=== PATIENT | male | born 1950 | race American Indian/Alaskan Native ===

== ENCOUNTER 2016-12-31 12:49 | Inpatient (IN) | payer MEDICAID, MEDICARE ==
[2016-12-31] MEDS ORDERED: NACL 0.9% 500 ML 500 ML IV ONE (13:54)
[2016-12-31 14:45] LABS: Anion Gap 25 mmol/L; BUN/Creatinine Ratio 30.76; Blood Urea Nitrogen 40 mg/dL (9-20); Calcium 8.4 mg/dL (8.4-10.2); Carbon Dioxide 20 mmol/L (22-30); Glucose 88 mg/dL (75-100); Potassium 4.5 mmol/L (3.6-5.0); Sodium 137 mmol/L (137-145)
--- NOTE | 2016-12-31 14:45 | Emergency Department Report ---
ED Male HPI - General Chief complaint: Urogenital-Male Stated complaint: POSS KIDNEY STONES Time Seen by Provider: 12/31/16 13:38 Source: EMS, old records reviewed Mode of arrival: Stretcher Limitations: Physical Limitation, Other - History of Present Illness MD Complaint: dysuria -: Gradual Radiation: none Improves with: none Worsens with: none urinary retention. denies: discharge, swelling, mass - Related Data Sexually active: No Home Medications Medication Instructions Recorded Confirmed Last Taken Aspirin [Aspirin TAB] 325 mg PO QDAY 03/19/16 12/31/16 04/03/16 08:00 Atenolol [Tenormin] 50 mg PO DAILY 03/19/16 12/31/16 04/03/16 08:00 Magan Turk [Antonio TURK] 500 mg PO DAILY 03/19/16 12/31/16 04/03/16 08:00 Docusate Sodium [Move It Along] 100 mg PO DAILY 03/19/16 12/31/16 04/03/16 08:00 Donepezil [Aricept] 10 mg PO DAILY 03/19/16 12/31/16 04/03/16 08:00 Hydrochlorothiazide [Hctz] 12.5 mg PO QDAY 03/19/16 12/31/16 04/03/16 08:00 Multivitamin Tab W-MINERAL 1 each PO QD 03/19/16 12/31/16 04/03/16 08:00 [Multiple Vitamin/Mineral (Theragran M)] Potassium Chloride [K-Tab ER] 10 meq PO DAILY 03/19/16 12/31/16 04/03/16 08:00 Nitro Dur 0.2 mg TRANSDERMA DAILY 04/03/16 12/31/16 04/03/16 08:00 cloNIDine 0.2 mg PO TID 04/03/16 12/31/16 04/03/16 08:00 metFORMIN 1,000 mg PO BID 04/03/16 12/31/16 04/03/16 08:00 Magan Turk [Antonio TURK] 750 mg PO QHS 12/31/16 12/31/16 Unknown Nitrofurantoin [place]/M-Cryst 100 mg PO DAILY 12/31/16 12/31/16 Unknown [Macrobid CAP] Sertraline [Zoloft] 100 mg PO QDAY 12/31/16 12/31/16 Unknown Tamsulosin [Flomax] 0.4 mg PO QDAY 12/31/16 12/31/16 Unknown guaiFENesin [Robitussin] 200 mg PO Q6HR 12/31/16 12/31/16 Unknown Allergies Allergy/AdvReac Type Severity Reaction Status Date / Time No Known Allergies Allergy Unverified 03/19/16 21:13 ED Review of Systems ROS: Stated complaint: POSS KIDNEY STONES Other details as noted in HPI Comment: Unobtainable due to pts medical conditions Constitutional: denies: chills, fever Eyes: denies: eye pain, eye discharge, vision change ENT: denies: ear pain, throat pain Respiratory: denies: cough, shortness of breath, wheezing Cardiovascular: denies: chest pain, palpitations Endocrine: no symptoms reported Gastrointestinal: denies: abdominal pain, nausea, diarrhea Genitourinary: denies: urgency, dysuria Musculoskeletal: denies: back pain, joint swelling, arthralgia Skin: denies: rash, lesions Neurological: denies: headache, weakness, paresthesias Psychiatric: denies: anxiety, depression Hematological/Lymphatic: denies: easy bleeding, easy bruising ED Past Medical Hx - Past Medical History Hx Hypertension: Yes Hx Diabetes: Yes Additional medical history: CEREBAL PALSY, PARAPLEGIA, APHAKIA, LOW VISION, DYSPHAGIA, CONSTIPATION, - Social History Smoking Status: Never Smoker - Medications Home Medications: Home Medications Medication Instructions Recorded Confirmed Last Taken Type Aspirin [Aspirin TAB] 325 mg PO QDAY 03/19/16 12/31/16 04/03/16 08:00 History Atenolol [Tenormin] 50 mg PO DAILY 03/19/16 12/31/16 04/03/16 08:[address] [DepaKOTE DR] 500 mg PO DAILY 03/19/16 12/31/16 04/03/16 08:00 History Docusate Sodium [Move It Along] 100 mg PO DAILY 03/19/16 12/31/16 04/03/16 08: 00 History Donepezil [Aricept] 10 mg PO DAILY 03/19/16 12/31/16 04/03/16 08:00 History Hydrochlorothiazide [Hctz] 12.5 mg PO QDAY 05/12/31/16 04/03/16 08:00 History Multivitamin Tab W-MINERAL 1 each PO QD 03/19/16 12/31/16 04/03/16 08:00 History [Multiple Vitamin/Mineral (Theragran M)] Potassium Chloride [K-Tab ER] 10 meq PO DAILY 03/19/16 12/31/16 04/03/16 08:00 History Nitro Dur 0.2 mg TRANSDERMA DAILY 04/03/16 12/31/16 04/03/16 08:00 History cloNIDine 0.2 mg PO TID 04/03/16 12/31/16 04/03/16 08:00 History metFORMIN 1,000 mg PO BID 04/03/16 12/31/16 04/03/16 08:[address] [DepGlenn DR] 750 mg PO QHS 12/31/16 12/31/16 Unknown History Nitrofurantoin [place]/M-Cryst 100 mg PO DAILY 12/31/16 12/31/16 Unknown History [Macrobid CAP] Sertraline [Zoloft] 100 mg PO QDAY 12/31/16 12/31/16 Unknown History Tamsulosin [Flomax] 0.4 mg PO QDAY 12/31/16 12/31/16 Unknown History guaiFENesin [Robitussin] 200 mg PO Q6HR 12/31/16 12/31/16 Unknown History ED Physical Exam - General Limitations: Physical Limitation, Other General appearance: alert, in no apparent distress - Head Head exam: Present: atraumatic, normocephalic - ENT ENT exam: Present: mucous membranes moist - Neck Neck exam: Present: normal inspection - Respiratory Respiratory exam: Present: normal lung sounds bilaterally. Absent: respiratory distress - Cardiovascular Cardiovascular Exam: Present: regular rate, normal rhythm. Absent: systolic murmur, diastolic murmur, rubs, gallop - GI/Abdominal GI/Abdominal exam: Present: soft, normal bowel sounds - Rectal Rectal exam: Present: deferred - Extremities Exam Extremities exam: Present: normal inspection - Back Exam Back exam: Present: normal inspection - Skin Skin exam: Present: warm, dry, intact, normal color. Absent: rash ED Course Vital Signs 12/31/16 12/31/16 12/31/16 13:16 13:22 15:00 Temperature 97.4 F L Pulse Rate 74 58 L Respiratory 20 16 12 Rate Blood Pressure 112/58 Blood Pressure 87/65 [Left] O2 Sat by Pulse 99 99 97 Oximetry ED Medical Decision Making - Lab Data Result diagrams: 12/31/16 14:14 12/31/16 14:14 - Medical Decision Making will admit after discussion case with Urologist and IM, he has been stable , requesting fluids otherwise doing well. labs neg , but CT abd /pelvis with Right ureter obstrcution at R UVJ, probably will need a stent Critical care attestation.: If time is entered above; I have spent that time in minutes in the direct care of this critically ill patient, excluding procedure time. ED Disposition Clinical Impression: Ureter colic, UTI (urinary tract infection) Disposition: OP ADMITTED IP TO THIS HOSP Is pt being admited?: Yes Does the pt Need Aspirin: No Condition: Good Referrals: PRIMARY CARE, [Primary Care Provider] - 3-5 Days Time of Disposition: 15:52
[2016-12-31 14:49] LABS: Basophils % (Auto) 0.6 % (0.0-1.8); Eosinophils % (Auto) 1.2 % (0.0-4.3); Hematocrit 31.8 % (35.5-45.6); Hemoglobin 10.4 gm/dl (11.8-15.2); Mean Corpuscular HGB Conc 33 % (32-34); Mean Corpuscular Hemoglobin 30 pg (28-32); Mean Corpuscular Volume 91 fl (84-94); Platelet Count 308 K/mm3 (140-440); Red Blood Count 3.49 M/mm3 (3.65-5.03); White Blood Count 5.5 K/mm3 (4.5-11.0)
--- NOTE | 2016-12-31 15:10 | Cat Scan Report ---
CT scan of abdomen and pelvis without IV contrast: History: Kidney stone, hydronephrosis. Findings: Bibasilar infiltrate/atelectasis. No pleural pericardial effusion. Circumscribed hypodensity measuring 1.6 cm in diameter at the right lobe of the liver probably a cyst. Sonographic correlation is advised. Normal gallbladder pancreas and spleen. Normal adrenals. Cyst identified in the right kidney measures 7.3 x 5.3 cm. There is 1.9 x 1.5 cm calculus at right kidney. Smaller calculus measuring 3 mm in diameter noted in the adjacent region. There is faint 3 mm calculus and triangular 8mm calculus and 8.5 mm calculus identified in the left kidney. Incidental catheter in thick walled bladder with air fluid level within the bladder. There is calculus identified at the right UV junction measuring 1.5 x 0.6 cm in diameter with hydronephrosis of right collecting system. Fecal impaction in rectosigmoid. No bowel obstruction. Suspected hydrocele left scrotum. Impression: Nonobstructing calculi right and left kidney. Obstructing calculus at the right UV junction with hydronephrosis. Probable cyst right lobe of the liver. Large left hydrocele. Additional findings as detailed above.
--- NOTE | 2016-12-31 16:36 | Admit Criteria Form ---
Admission Criteria Documentation: RENAL COLIC AND KIDNEY STONES Clinical Indications for Admission to Inpatient Care ( Place 'X' for any and all applicable criteria): Admission is indicated for ANY ONE of the following (1)(2)(3)(4): [X]I. Inpatient admission required rather than observation care (Also use Renal Colic and Kidney Stones: Observation Care Criteria as appropriate) because of ANY ONE of the following: [ ]a) Severe pain requiring acute inpatient management []b) Urinary tract infection identified [ ]c) Vomiting that is severe or persistent [ ]d) IV fluid required rather than oral rehydration to replace significant ongoing (eg, for greater than 24 hours) losses (greater than 200 mL/hr or 3 L/m2 per day) [ ]e) Percutaneous or open drainage (eg, abscess, biliary tract) procedures [X]f) Other condition, treatment or monitoring requiring inpatient admission [ ]II. Impending acute renal failure [ ]III. Bilateral obstruction [ ]IV. Single kidney with obstruction [ ]V. Transplanted kidney with obstruction [ ]. Possible open surgical procedure needed (eg, pyonephrosis, stone removal not amendable to other means) [ ]VII. Hemodynamic instability Extended stay beyond goal length of stay may be needed for(2)(3)(31): [ ]a) Failed initial stone removal (32) [ ]b) Pyonephrosis [ ]c) Obstructive uropathy with urinary tract infection [ ]d) Procedure complications [ ]e) Comorbidities (22) The original [email or web address] content created by [employer] has been revised. The portions of the content which have been revised are identified through the use of italic text or in bold, and [facility] has neither reviewed nor approved the modified material. All other unmodified content is copyright [email or web address]. Please see references footnoted in the original [email or web address] edition 2016 Admission Criteria Met: Yes
[2016-12-31] MEDS ORDERED: TYLENOL PO PRN (23:27)
[2016-12-31] MEDS ORDERED: ZOFRAN IV PRN ×2 (23:27→23:51)
[2016-12-31] MEDS ORDERED: DILAUDID IV PRN ×2 (23:27→23:51)
[2016-12-31] MEDS ORDERED: MILK OF MAGNESIA PO PRN (23:27)
[2016-12-31] MEDS ORDERED: DULCOLAX PR PRN (23:27)
--- NOTE | 2016-12-31 23:34 | Event Note ---
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
[2016-12-31] MEDS ORDERED: D5NS 1,000 ML IV SCH (23:45)
[2017-01-01] MEDS: ROBITUSSIN PO SCH ×5 (00:26→18:45)
--- NOTE | 2017-01-01 06:37 | History and Physical Report ---
CHIEF COMPLAINT: 1. Difficulty urination. 2. Right flank pain. HISTORY OF PRESENT ILLNESS: A 66-year-old male with diabetes, hypertension, and seizure disorder who comes in for right flank pain and difficulty urinating. No fever, no chills. Pain is about 8 on a scale of 1-10. The patient has urgency, dysuria and right flank pain. Able to pass urine. The patient has cerebral palsy and paraplegia. PAST MEDICAL HISTORY: As mentioned, hypertension, diabetes, cerebral palsy, paraplegia, dysphagia, constipation. FAMILY HISTORY: No hypertension, no diabetes. CURRENT MEDICATIONS: Aspirin 325 mg p.o. daily, atenolol 50 mg p.o. daily, Depakote 500 mg in the morning and 750 mg in the evening. Donepezil 10 mg p.o. daily, potassium chloride 10 mEq daily, clonidine 0.2 p.o. t.i.d., metformin 1000 mg p.o. b.i.d., nitrofurantoin 100 mg daily, Zoloft 100 mg daily, Flomax 0.4 p.o. daily. REVIEW OF SYSTEMS: Significant for right flank pain, dysuria, urgency. No fever, no chills. Otherwise, review of systems is essentially negative. PHYSICAL EXAMINATION: GENERAL: Elderly male, lying in bed. VITAL SIGNS: Blood pressure is 87/55, which has improved to 100/61, temperature is 98, pulse is 58, respirations 12, sats 97%. HEENT: Unremarkable. Pupils equal and reactive. NECK: Supple, no lymphadenopathy, no thyromegaly. LUNGS: Clear to auscultation and percussion. Good air entry. CARDIOVASCULAR: S1, S2 heard. No gallop, no murmur, no rub. Apical impulse in left fifth intercostal space and midclavicular line. ABDOMEN: Soft and benign. No hepatosplenomegaly. No guarding, no rigidity. EXTREMITIES: The patient has paraplegia. Brody catheter in place. SKIN: Normal. LABORATORY DATA: White count is 5500, H and H is 10.4 and 31.8, platelet count is 308,000. Sodium is 137, potassium is 4.5, chloride is 97, bicarbonate is 20, BUN and creatinine is 40 and 1.3, glucose is 88, calcium is 8.4. CT of the abdomen and pelvis shows nonobstructing calculi right and left kidney, obstructing calculus in the right UV junction with hydronephrosis, probable cyst in right lobe of the liver. Large left hydrocele. ASSESSMENT AND PLAN: Right hydronephrosis secondary to ureteric stone at UV junction. The patient needs stent and removal of the UV junction stone. Dr. Adams, Urology consulted. IV fluids in the meantime. For stent in the morning.1. 2. Hypertension. Continue clonidine 0.2 t.i.d., atenolol 50 mg daily. 3. Type 2 diabetes mellitus. The patient is on metformin. We will hold the metformin for the time being. Accu-Cheks achs and sliding scale coverage. 4. Seizure disorder. Continue the Depakote 500 mg in the morning and 750 mg in the evening. 5. Dementia. Continue donepezil 10 mg daily. For benign prostatic hyperplasia, continue tamsulosin 6. 0.4 mg p.o. daily. 7. Deep venous thrombosis prophylaxis, Lovenox 40 mg subcutaneous daily. JOB# [id number] SAMI/RIGO HENDERSON
[2017-01-01 06:43] LABS: Basophils % (Auto) 0.5 % (0.0-1.8); Eosinophils % (Auto) 0.9 % (0.0-4.3); Hematocrit 31.9 % (35.5-45.6); Hemoglobin 10.5 gm/dl (11.8-15.2); Mean Corpuscular HGB Conc 33 % (32-34); Mean Corpuscular Hemoglobin 30 pg (28-32); Mean Corpuscular Volume 91 fl (84-94); Platelet Count 302 K/mm3 (140-440); Red Blood Count 3.53 M/mm3 (3.65-5.03); Red Cell Distribution Width 15.1 % (13.2-15.2); White Blood Count 5.3 K/mm3 (4.5-11.0)
[2017-01-01 06:57] LABS: Alanine Aminotransferase 18 units/L (7-56); Albumin 2.6 g/dL (3.9-5); Albumin/Globulin Ratio 0.5 %; Alkaline Phosphatase 60 units/L (35-129); Anion Gap 18 mmol/L; Bilirubin,Total 0.2 mg/dL (0.1-1.2); Blood Urea Nitrogen 34 mg/dL (9-20); Calcium 8.5 mg/dL (8.4-10.2); Carbon Dioxide 24 mmol/L (22-30); Chloride 100.6 mmol/L (98-107); Glucose 91 mg/dL (75-100); Potassium 3.9 mmol/L (3.6-5.0); Sodium 139 mmol/L (137-145); Total Protein 7.4 g/dL (6.3-8.2)
[2017-01-01] MEDS: NOVOLOG SUB-Q SCH ×4 (07:30→23:14)
[2017-01-01] MEDS ORDERED: NON-FORMULARY (Clonidine 0.2 MG) PO SCH (08:00)
[2017-01-01] MEDS: FLOMAX PO SCH (09:11)
[2017-01-01] MEDS: ASPIRIN PO SCH (09:11)
[2017-01-01] MEDS: COLACE PO SCH (09:11)
[2017-01-01] MEDS: ZOLOFT PO SCH (09:12)
[2017-01-01] MEDS: K-DUR PO SCH (09:12)
[2017-01-01] MEDS: ARICEPT PO SCH (09:12)
[2017-01-01] MEDS: TENORMIN PO SCH (09:13)
[2017-01-01] MEDS: HCTZ PO SCH (09:13)
[2017-01-01] MEDS: CATAPRES PO SCH ×3 (09:14→23:13)
[2017-01-01] MEDS ORDERED: LOVENOX SUB-Q SCH ×2 (10:00)
[2017-01-01] MEDS ORDERED: NON-FORMULARY (Potassium Chloride [K-Tab Er] 10 MEQ) PO SCH (10:00)
[2017-01-01] MEDS ORDERED: DOCUSATE SODIUM 100 MG PO SCH (10:00)
[2017-01-01] MEDS: ROCEPHIN/NS 2 GM/100 ML 2 GM/100 ML BAG IV SCH (11:08)
--- NOTE | 2017-01-01 13:57 | Progress Note ---
Assessment and Plan Assessment and plan: 66-year-old male with history of hypertension, diabetes, seizure disorder, cerebral palsy, paraplegia 1. Right hydronephrosis secondary to ureteric stone at the UV junction - Urology consulted - Possible stent placement 2. Hypertension - Controlled - Continue current medications 3. Diabetes mellitus type 2 - Insulin regimen 4.Seizure disorder - Continue her medications 5.Dementia - Continue donepezil DVT prophylaxis - Lovenox Disposition - Continue inpatient care History Interval history: Patient denied abdominal pain, fever. Hospitalist Physical - Physical exam Narrative exam: Not in cardiopulmonary distress. The patient appeared well nourished and normally developed. Vital signs as documented. Head exam is unremarkable. No scleral icterus . Neck is without jugular venous distension, thyromegaly, or carotid bruits. Lungs are clear to auscultation. Cardiac exam reveals regular rate and Rhythm. First and second heart sounds normal. No murmurs, rubs or gallops. Abdominal exam reveals nontender, nondistended. Extremities are nonedematous and both femoral and pedal pulses are normal. CELERY TIER: Alert . - Constitutional Vitals: Temp Pulse Resp BP Pulse Ox 98.4 F 54 L 18 121/65 100 01/01/17 09:00 01/01/17 09:14 01/01/17 09:00 01/01/17 09:14 01/01/17 09:00 Results - Labs CBC & Chem 7: 01/01/17 06:20 01/01/17 06:20 Labs: Laboratory Last Values WBC 5.3 K/mm3 (4.5-11.0) 01/01/17 06:20 RBC 3.53 M/mm3 (3.65-5.03) L 01/01/17 06:20 Hgb 10.5 gm/dl (11.8-15.2) L 01/01/17 06:20 Hct 31.9 % (35.5-45.6) L 01/01/17 06:20 MCV 91 fl (84-94) 01/01/17 06:20 MCH 30 pg (28-32) 01/01/17 06:20 MCHC 33 % (32-34) 01/01/17 06:20 RDW 15.1 % (13.2-15.2) 01/01/17 06:20 Plt Count 302 K/mm3 (140-440) 01/01/17 06:20 Lymph % (Auto) 11.5 % (13.4-35.0) L 01/01/17 06:20 [place] % (Auto) 7.9 % (0.0-7.3) H 01/01/17 06:20 Eos % (Auto) 0.9 % (0.0-4.3) 01/01/17 06:20 Baso % (Auto) 0.5 % (0.0-1.8) 01/01/17 06:20 Lymph # 0.6 K/mm3 (1.2-5.4) L 01/01/17 06:20 [place] # 0.4 K/mm3 (0.0-0.8) 01/01/17 06:20 Eos # 0.0 K/mm3 (0.0-0.4) 01/01/17 06:20 Baso # 0.0 K/mm3 (0.0-0.1) 01/01/17 06:20 Seg Neutrophils % 79.2 % (40.0-70.0) H 01/01/17 06:20 Seg Neutrophils # 4.2 K/mm3 (1.8-7.7) 01/01/17 06:20 Sodium 139 mmol/L (137-145) 01/01/17 06:20 Potassium 3.9 mmol/L (3.6-5.0) 01/01/17 06:20 Chloride 100.6 mmol/L (98-107) 01/01/17 06:20 Carbon Dioxide 24 mmol/L (22-30) 01/01/17 06:20 Anion Gap 18 mmol/L 01/01/17 06:20 BUN 34 mg/dL (9-20) H 01/01/17 06:20 Creatinine 1.0 mg/dL (0.8-1.5) 01/01/17 06:20 Estimated GFR > 60 ml/min 01/01/17 06:20 BUN/Creatinine Ratio 34.00 % 01/01/17 06:20 Glucose 91 mg/dL (75-100) 01/01/17 06:20 POC Glucose 147 (70-105) H 01/01/17 12:03 Calcium 8.5 mg/dL (8.4-10.2) 01/01/17 06:20 Total Bilirubin 0.2 mg/dL (0.1-1.2) 01/01/17 06:20 AST 15 units/L (5-40) 01/01/17 06:20 ALT 18 units/L (7-56) 01/01/17 06:20 Alkaline Phosphatase 60 units/L (35-129) 01/01/17 06:20 Total Protein 7.4 g/dL (6.3-8.2) 01/01/17 06:20 Albumin 2.6 g/dL (3.9-5) L 01/01/17 06:20 Albumin/Globulin Ratio 0.5 % 01/01/17 06:20
[2017-01-02] MEDS: ROBITUSSIN PO SCH ×4 (00:59→18:00)
[2017-01-02 05:45] LABS: BUN/Creatinine Ratio 27.14; Blood Urea Nitrogen 19 mg/dL (9-20); Calcium 7.9 mg/dL (8.4-10.2); Carbon Dioxide 23 mmol/L (22-30); Glucose 120 mg/dL (75-100)
[2017-01-02 05:46] LABS: Anion Gap 16 mmol/L; Chloride 104.8 mmol/L (98-107); Potassium 3.6 mmol/L (3.6-5.0); Sodium 140 mmol/L (137-145)
[2017-01-02] MEDS ORDERED: PEPCID PO NR (06:00)
[2017-01-02] MEDS: NACL 0.9% 1000 ML 1,000 ML IV SCH (06:58)
[2017-01-02] MEDS: CATAPRES PO SCH ×3 (08:00→20:00)
[2017-01-02] MEDS: NOVOLOG SUB-Q SCH ×2 (08:00→15:00)
--- NOTE | 2017-01-02 08:10 | Query- Nutrition ---
Deaelizabeth Garg Date:____01/02/17 Dog Daycare Provider/CDS:__Gonzales Vega Phone#:____[phone] Exercise your independent professional judgment when responding to query. Questions asked do not imply a particular answer is desired or expected. We greatly appreciate your clarification on this issue. Clinical Documentation States: 66 year old male was admitted on 12/31/16. The Patient was diagnosed with a right hydronephrosis secondary to ureteric stone at the UV junction. Clinical Findings Show: Albumin : 2.6 Lymphocytes: 0.6 Please select the most appropriate option 3 [] Mild Malnutrition [] Mild - Moderate Malnutrition [x] Moderate - Severe Malnutrition [] Severe Malnutrition Serum Albumin 2.8 to 3.4 g/dl or Pre-albumin 5 to 17 mg/dl1,2 Inadequate nutritional intake1,2,3,4 NPO > 5 days Weight loss: 5% in 1 month or 7.5% in 3 months or 10% in 6 months1, 3,4 BMI 16 to 18.4 or Weight <90% of ideal body weight1,2,3,4 Serum Albumin < 2.8 g/ dl1,2 Lymphocytes < 1500/ L2 Inadequate nutritional intake3, high stress e.g. major trauma, sepsis,pancreatitis, mann etc. Decubitus ulcers1,2, , skin breakdown2, easy hair pluckability2 Weight <80% standard for height2 Triceps skin fold <3 mm2 Mid-arm muscle circumference <15 cm2 Creatinine-height index <60% standard2 [ ] Cachexia [ x] Emaciated w/Malnutrition [ ] Other: [ ] Unable to determine [ ] Comment/Explanation: Present on Admission: [ ] Yes (Y) [ x] Clinically undeterminable (W) [ ] No (N) Please also document response in your Progress Notes and/or Discharge Summary and indicate if the condition was present on admission. MTDD
[2017-01-02] MEDS: ROCEPHIN/NS 2 GM/100 ML 2 GM/100 ML BAG IV SCH (09:40)
[2017-01-02] MEDS: TENORMIN PO SCH (10:00)
[2017-01-02] MEDS: ZOLOFT PO SCH (10:00)
[2017-01-02] MEDS: FLOMAX PO SCH (10:00)
[2017-01-02] MEDS: ARICEPT PO SCH (10:00)
[2017-01-02] MEDS: COLACE PO SCH (10:00)
[2017-01-02] MEDS: ASPIRIN PO SCH (10:00)
[2017-01-02] MEDS: HCTZ PO SCH (10:00)
[2017-01-02] MEDS: K-DUR PO SCH (10:00)
--- NOTE | 2017-01-02 11:02 | Event Note ---
Date: 01/02/17 PAULINA RENAL STONES RIGHT HYDRO / URET STONE ?LT URET STONE - plan tonight cysto, rpg, stents and possibl ureteroscopy, laser, stone extraction - family to arrive late pm, will need to discuss and consent
--- NOTE | 2017-01-02 11:10 | Anesthesia Consultation ---
Anesthesia Consult and Med Hx Date of service: 01/02/17 - Airway Anesthetic Teeth Evaluation: Poor, Chipped (some missing teeth, patient uncooperative to fully assess) ROM Head & Neck: Inadequate Mental/Hyoid Distance: Adequate Mallampati Class: Class III Intubation Access Assessment: Possibly Difficult - Pulmonary Exam CTA: Yes - Cardiac Exam Cardiac Exam: RRR - Pre-Operative Health Status ASA Pre-Surgery Classification: ASA3 Proposed Anesthetic Plan: General - Pulmonary Hx Smoking: No - Cardiovascular System Hx Hypertension: Yes Hx Heart Attack/AMI: Yes - Central Nervous System Hx Neuromuscular Disorder: Yes (cerebral palsy) Hx Seizures: No CVA: Yes Hx Psychiatric Problems: Yes (anxiety, combative, uncooperative if agitated/ nervous, poss dementia) - Gastrointestinal Hx Ulcer: No Hx Gastroesophageal Reflux Disease: No - Endocrine Hx Non-Insulin Dependent Diabetes: Yes - Hematic Hx Anemia: No Hx Sickle Cell Disease: No - Other Systems Hx Alcohol Use: No Hx Substance Use: No Hx Cancer: No Hx Obesity: No - Additional Comments Anesthesia Medical History Comments: Patient states he does not want to give consent for anesthesia services. He wishes for his parking patroller/POA to sign his documents at this time. Patient has limited movement, paraplegia in both legs. Arms are stiff with limited motion.
--- NOTE | 2017-01-02 12:14 | Progress Note ---
Assessment and Plan Assessment and plan: 66-year-old male with history of hypertension, diabetes, seizure disorder, cerebral palsy, paraplegia 1. Right hydronephrosis secondary to ureteric stone at the UV junction - Urology consulted and plan to do cystoscopy in the afternoon after getting consent from family member - Possible stent placement 2. Hypertension - Controlled - Continue current medications 3. Diabetes mellitus type 2 - Insulin regimen 4.Seizure disorder - Continue her medications 5.Dementia - Continue donepezil DVT prophylaxis - Lovenox Disposition - Continue inpatient care History Interval history: Patient denied abdominal pain, fever. patient was sleepy. Hospitalist Physical - Physical exam Narrative exam: Not in cardiopulmonary distress. The patient appeared well nourished and normally developed. Vital signs as documented. Head exam is unremarkable. No scleral icterus . Neck is without jugular venous distension, thyromegaly, or carotid bruits. Lungs are clear to auscultation. Cardiac exam reveals regular rate and Rhythm. First and second heart sounds normal. No murmurs, rubs or gallops. Abdominal exam reveals nontender, nondistended. Extremities are nonedematous and both femoral and pedal pulses are normal. TRAIN CONTROL ELECTRONIC TECHNICIAN: Alert . - Constitutional Vitals: Temp Pulse Resp BP Pulse Ox 97.5 F L 62 18 120/65 95 01/01/17 16:00 01/01/17 23:13 01/01/17 16:00 01/01/17 23:13 01/01/17 16:00 Results - Labs CBC & Chem 7: 01/01/17 06:20 01/02/17 05:08 Labs: Laboratory Last Values WBC 5.3 K/mm3 (4.5-11.0) 01/01/17 06:20 RBC 3.53 M/mm3 (3.65-5.03) L 01/01/17 06:20 Hgb 10.5 gm/dl (11.8-15.2) L 01/01/17 06:20 Hct 31.9 % (35.5-45.6) L 01/01/17 06:20 MCV 91 fl (84-94) 01/01/17 06:20 MCH 30 pg (28-32) 01/01/17 06:20 MCHC 33 % (32-34) 01/01/17 06:20 RDW 15.1 % (13.2-15.2) 01/01/17 06:20 Plt Count 302 K/mm3 (140-440) 01/01/17 06:20 Lymph % (Auto) 11.5 % (13.4-35.0) L 01/01/17 06:20 [place] % (Auto) 7.9 % (0.0-7.3) H 01/01/17 06:20 Eos % (Auto) 0.9 % (0.0-4.3) 01/01/17 06:20 Baso % (Auto) 0.5 % (0.0-1.8) 01/01/17 06:20 Lymph # 0.6 K/mm3 (1.2-5.4) L 01/01/17 06:20 [place] # 0.4 K/mm3 (0.0-0.8) 01/01/17 06:20 Eos # 0.0 K/mm3 (0.0-0.4) 01/01/17 06:20 Baso # 0.0 K/mm3 (0.0-0.1) 01/01/17 06:20 Seg Neutrophils % 79.2 % (40.0-70.0) H 01/01/17 06:20 Seg Neutrophils # 4.2 K/mm3 (1.8-7.7) 01/01/17 06:20 Sodium 140 mmol/L (137-145) 01/02/17 05:08 Potassium 3.6 mmol/L (3.6-5.0) 01/02/17 05:08 Chloride 104.8 mmol/L (98-107) 01/02/17 05:08 Carbon Dioxide 23 mmol/L (22-30) 01/02/17 05:08 Anion Gap 16 mmol/L 01/02/17 05:08 BUN 19 mg/dL (9-20) 01/02/17 05:08 Creatinine 0.7 mg/dL (0.8-1.5) L 01/02/17 05:08 Estimated GFR > 60 ml/min 01/02/17 05:08 BUN/Creatinine Ratio 27.14 % 01/02/17 05:08 Glucose 120 mg/dL (75-100) H 01/02/17 05:08 POC Glucose 99 (70-105) 01/02/17 07:26 Calcium 7.9 mg/dL (8.4-10.2) L 01/02/17 05:08 Total Bilirubin 0.2 mg/dL (0.1-1.2) 01/01/17 06:20 AST 15 units/L (5-40) 01/01/17 06:20 ALT 18 units/L (7-56) 01/01/17 06:20 Alkaline Phosphatase 60 units/L (35-129) 01/01/17 06:20 Total Protein 7.4 g/dL (6.3-8.2) 01/01/17 06:20 Albumin 2.6 g/dL (3.9-5) L 01/01/17 06:20 Albumin/Globulin Ratio 0.5 % 01/01/17 06:20
--- NOTE | 2017-01-02 15:01 | Post Anesthesia Evaluation ---
- Post Anesthesia Evaluation Patient Participated: Yes Airway Patent: Yes Stable Respiratory Function: Yes Nausea/Vomiting: No Temp > 96.8F: Yes Pain Manageable: Yes Adequeate Hydration: Yes Anesthesia Complications: No Block Receding Appropriately: Not Applicable Patient on Ventilator: No
[2017-01-02] MEDS ORDERED: DIPRIVAN 10 MG/ML IV ONE (16:28)
[2017-01-02] MEDS ORDERED: XYLOCAINE MPF 2% ONE (16:29)
[2017-01-02] MEDS ORDERED: SUBLIMAZE ONE (16:29)
--- NOTE | 2017-01-02 19:07 | Consultation ---
History of Present Illness - Reason for Consult Consult date: 01/02/17 stones hydro - History of Present Illness 66yo w/ cerebral palsy, nh pt. min sxs. admitied w/ stones. had ct done w/ paulina renal and uret stone riight w/ hydro. outisde w possible left also no pain, no rad. no exac. arrived er. hospitalist admit . optimized. on abx. Medications and Allergies Allergies Allergy/AdvReac Type Severity Reaction Status Date / Time No Known Allergies Allergy Unverified 03/19/16 21:13 Home Medications Medication Instructions Recorded Confirmed Last Taken Type Aspirin [Aspirin TAB] 325 mg PO QDAY 03/19/16 12/31/16 04/03/16 08:00 History Atenolol [Tenormin] 50 mg PO DAILY 03/19/16 12/31/16 04/03/16 08:00 History Divalproex [Antonio TURK] 500 mg PO DAILY 03/19/16 12/31/16 04/03/16 08:00 History Docusate Sodium [Move It Along] 100 mg PO DAILY 03/19/16 12/31/16 04/03/16 08: 00 History Donepezil [Aricept] 10 mg PO DAILY 03/19/16 12/31/16 04/03/16 08:00 History Hydrochlorothiazide [Hctz] 12.5 mg PO QDAY 03/19/16 12/31/16 04/03/16 08:00 History Multivitamin Tab W-MINERAL 1 each PO QD 03/19/16 12/31/16 04/03/16 08:00 History [Multiple Vitamin/Mineral (Theragran M)] Potassium Chloride [K-Tab ER] 10 meq PO DAILY 03/19/16 12/31/16 04/03/16 08:00 History Nitro Dur 0.2 mg TRANSDERMA DAILY 04/03/16 12/31/16 04/03/16 08:00 History cloNIDine 0.2 mg PO TID 04/03/16 12/31/16 04/03/16 08:00 History metFORMIN 1,000 mg PO BID 04/03/16 12/31/16 04/03/16 08:00 History Divalprowes Turk [Antonio TURK] 750 mg PO QHS 12/31/16 12/31/16 Unknown History Nitrofurantoin Green/M-Cryst 100 mg PO DAILY 12/31/16 12/31/16 Unknown History [Macrobid CAP] Sertraline [Zoloft] 100 mg PO QDAY 12/31/16 12/31/16 Unknown History Tamsulosin [Flomax] 0.4 mg PO QDAY 12/31/16 12/31/16 Unknown History guaiFENesin [Robitussin] 200 mg PO Q6HR 12/31/16 12/31/16 Unknown History Active Meds: Active Medications Acetaminophen (Tylenol) 650 mg PO Q4H PRN PRN Reason: Pain MILD(1-3)/Fever >100.5/HDEZ Aspirin (Aspirin) 325 mg PO QDAY [facility] Last Admin: 01/01/17 09:11 Dose: 325 mg Atenolol (Tenormin) 50 mg PO DAILY [facility] Last Admin: 01/01/17 09:13 Dose: Not Given Bisacodyl (Dulcolax) 10 mg VT QDAY PRN PRN Reason: Constipation unrelieved by MOM Clonidine HCl (Catapres) 0.2 mg PO TID [facility] Last Admin: 01/01/17 23:13 Dose: Not Given Divalproex Sodium (Depakote Dr) 500 mg PO DAILY [facility] Last Admin: 01/01/17 09:13 Dose: 500 mg Divalproex Sodium (Depakote Dr) 750 mg PO QHS [facility] Last Admin: 01/01/17 23:18 Dose: 750 mg Docusate Sodium (Colace) 100 mg PO DAILY [facility] Last Admin: 01/01/17 09:11 Dose: 100 mg Donepezil HCl (Aricept) 10 mg PO DAILY [facility] Last Admin: 01/01/17 09:12 Dose: 10 mg Famotidine (Pepcid) 20 mg PO PREOP NR Stop: 01/04/17 05:59 Guaifenesin (Robitussin) 200 mg PO Q6HR [facility] Last Admin: 01/02/17 07:40 Dose: Not Given Heparin Sodium (Porcine) (Heparin) 5,000 unit SUB-Q Q8H [facility] Hydrochlorothiazide (Hctz) 12.5 mg PO QDAY [facility] Last Admin: 01/01/17 09:13 Dose: Not Given Hydromorphone HCl (Dilaudid) 1 mg IV Q3H PRN PRN Reason: Pain , Severe (7-10) Ceftriaxone Sodium (Rocephin/Ns 2 Gm/100 Ml) 2 gm in 100 mls @ 200 mls/hr IV Q24HR [facility] Last Admin: 01/01/17 11:08 Dose: 200 mls/hr Sodium Chloride (Nacl 0.9% 1000 Ml) 1,000 mls @ 75 mls/hr IV DIRECT [facility] Last Admin: 01/02/17 06:58 Dose: 75 mls/hr Insulin Aspart (Novolog) 0 units SUB-Q ACHS [facility] PRN Reason: Protocol Last Admin: 01/01/17 23:14 Dose: Not Given Magnesium Hydroxide (Milk Of Magnesia) 30 ml PO Q4H PRN PRN Reason: Constipation Ondansetron HCl (Zofran) 4 mg IV Q3H PRN PRN Reason: Nausea And Vomiting Oxycodone/Acetaminophen (Percocet 5/325) 1 tab PO Q6H PRN PRN Reason: Pain, Moderate (4-6) Potassium Chloride (K-Dur) 10 meq PO QDAY [facility] Last Admin: 01/01/17 09:12 Dose: 10 meq Sertraline HCl (Zoloft) 100 mg PO QDAY [facility] Last Admin: 01/01/17 09:12 Dose: 100 mg Tamsulosin HCl (Flomax) 0.4 mg PO QDAY [facility] Last Admin: 01/01/17 09:11 Dose: 0.4 mg Review of Systems ROS unobtainable: due to mental status Constitutional: no fever Ears, nose, mouth and throat: no ear pain Cardiovascular: no chest pain Respiratory: no cough Gastrointestinal: no abdominal pain Genitourinary Male: no flank pain Exam - Constitutional Vitals: Temp Pulse Resp BP Pulse Ox 97.5 F L 64 16 148/85 99 01/01/17 16:00 01/02/17 08:00 01/02/17 08:00 01/02/17 08:00 01/02/17 08:00 General appearance: Present: no acute distress - EENT ENT: hearing intact, clear oral mucosa - Neck Neck: Present: supple - Respiratory Respiratory effort: normal - Extremities Extremities: no ischemia, No edema - Abdominal General gastrointestinal: Present: soft, non-tender Male genitourinary: Present: normal - Rectal Rectal Exam: normal exam-external/orifice - Integumentary Integumentary: Present: clear, warm, dry Results - Labs CBC & Chem 7: 01/01/17 06:20 01/02/17 05:08 Labs: Abnormal lab results 01/01/17 01/02/17 Range/Units 23:11 05:08 Creatinine 0.7 L (0.8-1.5) mg/dL Glucose 120 H (75-100) mg/dL POC Glucose 125 H (70-105) Calcium 7.9 L (8.4-10.2) mg/dL Assessment and Plan - Past Medical History Hx Hypertension: Yes Hx Diabetes: Yes Additional medical history: CEREBAL PALSY, PARAPLEGIA, APHAKIA, LOW VISION, DYSPHAGIA, CONSTIPATION, htn, dm - Social History Smoking Status: Never Smoker PAULINA RENAL STONES RIGHT HYDRO / RIGHT URET STONE Possible LEFT URET STONE - plan consent, r/b/c/a - per cousin POA - plan cysto, rpg, stent, possible urs, laser, sbe
[2017-01-02] MEDS ORDERED: NACL 0.9% 1000 ML 1,000 ML ONE (19:20)
--- NOTE | 2017-01-02 19:36 | Post Operative Note ---
Date of procedure: 01/02/17 Pre-op diagnosis: brenden renal and brenden uret stones lg uret Post-op diagnosis: other (same plus, bladder stone bph) Findings: right hydro brenden renal / uret stones bladder stone lg prost sig j hook brenden ureters Procedure: cysto, left 6x26, brenden rpg attempted right stent Anesthesia: EVINA Surgeon: JOSETTE EDWARDS Estimated blood loss: minimal Pathology: none Condition: stable Disposition: PACU
[2017-01-02] MEDS: HEPARIN SUB-Q SCH (20:00)
[2017-01-02] MEDS ORDERED: ZOFRAN ONE (20:10)
[2017-01-02] MEDS ORDERED: DECADRON ONE (20:10)
[2017-01-02] MEDS ORDERED: DILAUDID IV PRN (21:24)
[2017-01-03] MEDS: HEPARIN SUB-Q SCH ×4 (04:00→23:04)
[2017-01-03] MEDS: NOVOLOG SUB-Q SCH ×6 (04:50→23:05)
[2017-01-03] MEDS: ROBITUSSIN PO SCH ×4 (04:52→18:43)
[2017-01-03] MEDS: NACL 0.9% 1000 ML 1,000 ML IV SCH ×2 (04:57→18:31)
[2017-01-03] MEDS: PERCOCET 5/325 PO PRN (04:58)
[2017-01-03] MEDS: CATAPRES PO SCH ×4 (08:00→23:06)
--- NOTE | 2017-01-03 08:30 | Event Note ---
Date: 01/03/17 No post op fevers cath, output ok Imp/Plan: PAULINA RENAL STONES PAULINA URET STONES BLADDER STONES LE CONTRACTURES BPH UTI ?Cerebral Palsy - S/P LEFT SENT - CONT LOZANO - IR Consulted to eval for right nephrostomy tub - if develops fevers / sepsis will need urgent
[2017-01-03] MEDS: K-DUR PO SCH (10:00)
[2017-01-03] MEDS: COLACE PO SCH (11:25)
[2017-01-03] MEDS: ARICEPT PO SCH (11:25)
[2017-01-03] MEDS: HCTZ PO SCH (11:26)
[2017-01-03] MEDS: FLOMAX PO SCH (11:26)
[2017-01-03] MEDS: ZOLOFT PO SCH (11:26)
[2017-01-03] MEDS: TENORMIN PO SCH (11:26)
[2017-01-03] MEDS: ROCEPHIN/NS 2 GM/100 ML 2 GM/100 ML BAG IV SCH (12:00)
--- NOTE | 2017-01-03 13:14 | Progress Note ---
Assessment and Plan Assessment and plan: 66-year-old male with history of hypertension, diabetes, seizure disorder, cerebral palsy, paraplegia 1. Right hydronephrosis secondary to ureteric stone at the UV junction - Bilateral renal stones, bilateral ureteric stones, bladder stones - Urology with left stent, cystoscopy - IR consulted to do right Nephrostomy tube 2. Hypertension - Controlled - Continue current medications 3. Diabetes mellitus type 2 - Insulin regimen 4.Seizure disorder - Continue her medications 5.Dementia - Continue donepezil DVT prophylaxis - Lovenox Disposition - Continue inpatient care History Interval history: Patient denied abdominal pain, fever. patient was sleepy. Hospitalist Physical - Physical exam Narrative exam: Not in cardiopulmonary distress. The patient appeared well nourished and normally developed. Vital signs as documented. Head exam is unremarkable. No scleral icterus . Neck is without jugular venous distension, thyromegaly, or carotid bruits. Lungs are clear to auscultation. Cardiac exam reveals regular rate and Rhythm. First and second heart sounds normal. No murmurs, rubs or gallops. Abdominal exam reveals nontender, nondistended. Extremities contractures. STAINED GLASS GLAZIER: Alert . - Constitutional Vitals: Temp Pulse Resp BP Pulse Ox 98.5 F 60 16 152/79 100 01/03/17 08:00 01/03/17 08:00 01/03/17 08:00 01/03/17 08:00 01/03/17 08:00 General appearance: Present: no acute distress Results - Labs CBC & Chem 7: 01/01/17 06:20 01/02/17 05:08 Labs: Laboratory Last Values WBC 5.3 K/mm3 (4.5-11.0) 01/01/17 06:20 RBC 3.53 M/mm3 (3.65-5.03) L 01/01/17 06:20 Hgb 10.5 gm/dl (11.8-15.2) L 01/01/17 06:20 Hct 31.9 % (35.5-45.6) L 01/01/17 06:20 MCV 91 fl (84-94) 01/01/17 06:20 MCH 30 pg (28-32) 01/01/17 06:20 MCHC 33 % (32-34) 01/01/17 06:20 RDW 15.1 % (13.2-15.2) 01/01/17 06:20 Plt Count 302 K/mm3 (140-440) 01/01/17 06:20 Lymph % (Auto) 11.5 % (13.4-35.0) L 01/01/17 06:20 [place] % (Auto) 7.9 % (0.0-7.3) H 01/01/17 06:20 Eos % (Auto) 0.9 % (0.0-4.3) 01/01/17 06:20 Baso % (Auto) 0.5 % (0.0-1.8) 01/01/17 06:20 Lymph # 0.6 K/mm3 (1.2-5.4) L 01/01/17 06:20 [place] # 0.4 K/mm3 (0.0-0.8) 01/01/17 06:20 Eos # 0.0 K/mm3 (0.0-0.4) 01/01/17 06:20 Baso # 0.0 K/mm3 (0.0-0.1) 01/01/17 06:20 Seg Neutrophils % 79.2 % (40.0-70.0) H 01/01/17 06:20 Seg Neutrophils # 4.2 K/mm3 (1.8-7.7) 01/01/17 06:20 Sodium 140 mmol/L (137-145) 01/02/17 05:08 Potassium 3.6 mmol/L (3.6-5.0) 01/02/17 05:08 Chloride 104.8 mmol/L (98-107) 01/02/17 05:08 Carbon Dioxide 23 mmol/L (22-30) 01/02/17 05:08 Anion Gap 16 mmol/L 01/02/17 05:08 BUN 19 mg/dL (9-20) 01/02/17 05:08 Creatinine 0.7 mg/dL (0.8-1.5) L 01/02/17 05:08 Estimated GFR > 60 ml/min 01/02/17 05:08 BUN/Creatinine Ratio 27.14 % 01/02/17 05:08 Glucose 120 mg/dL (75-100) H 01/02/17 05:08 POC Glucose 86 (70-105) 01/03/17 12:24 Calcium 7.9 mg/dL (8.4-10.2) L 01/02/17 05:08 Total Bilirubin 0.2 mg/dL (0.1-1.2) 01/01/17 06:20 AST 15 units/L (5-40) 01/01/17 06:20 ALT 18 units/L (7-56) 01/01/17 06:20 Alkaline Phosphatase 60 units/L (35-129) 01/01/17 06:20 Total Protein 7.4 g/dL (6.3-8.2) 01/01/17 06:20 Albumin 2.6 g/dL (3.9-5) L 01/01/17 06:20 Albumin/Globulin Ratio 0.5 % 01/01/17 06:20
--- NOTE | 2017-01-03 19:27 | Event Note ---
Date: 01/03/17 Patient will have percutaneous nephrostomy tube on the right tomorrow
[2017-01-04] MEDS: HEPARIN SUB-Q SCH ×3 (03:14→23:55)
[2017-01-04 05:26] LABS: Basophils % (Auto) 0.8 % (0.0-1.8); Eosinophils % (Auto) 2.4 % (0.0-4.3); Hematocrit 30.2 % (35.5-45.6); Hemoglobin 9.9 gm/dl (11.8-15.2); Mean Corpuscular HGB Conc 33 % (32-34); Mean Corpuscular Hemoglobin 30 pg (28-32); Mean Corpuscular Volume 91 fl (84-94); Platelet Count 276 K/mm3 (140-440); Red Cell Distribution Width 15.1 % (13.2-15.2)
[2017-01-04 05:43] LABS: BUN/Creatinine Ratio 12.85; Blood Urea Nitrogen 9 mg/dL (9-20); Carbon Dioxide 21 mmol/L (22-30); Chloride 111.8 mmol/L (98-107); Glucose 82 mg/dL (75-100); Potassium 4.1 mmol/L (3.6-5.0); Sodium 145 mmol/L (137-145)
[2017-01-04 05:49] LABS: Anion Gap 16 mmol/L
[2017-01-04] MEDS: ROBITUSSIN PO SCH ×5 (07:00→23:38)
[2017-01-04] MEDS: NOVOLOG SUB-Q SCH ×4 (08:00→23:54)
[2017-01-04] MEDS ORDERED: XYLOCAINE 2% INFILTRATI ONE (09:26)
[2017-01-04] MEDS ORDERED: VERSED ONE (09:26)
[2017-01-04] MEDS ORDERED: NACL 0.9% 500 ML IR ONE (09:26)
[2017-01-04] MEDS ORDERED: SUBLIMAZE ONE (09:26)
[2017-01-04] MEDS ORDERED: LEVAQUIN 500MG/100ML 500 MG/100 ML BAG IV ONE (09:27)
[2017-01-04] MEDS: ARICEPT PO SCH (10:00)
[2017-01-04] MEDS: HCTZ PO SCH (10:00)
[2017-01-04] MEDS: FLOMAX PO SCH (10:00)
[2017-01-04] MEDS: ZOLOFT PO SCH (10:00)
[2017-01-04] MEDS: COLACE PO SCH (10:00)
[2017-01-04] MEDS: TENORMIN PO SCH (10:00)
--- NOTE | 2017-01-04 10:32 | Operative Report ---
Operative Report Operative Report: EXAM: ULTRASOUND AND FLUOROSCOPIC GUIDED PLACEMENT OF PERCUTANEOUS NEPHROSTOMY TUBE CLINICAL INDICATION: PATIENT WITH RIGHT-SIDED HYDRONEPHROSIS AND OBSTRUCTING URETERAL STONE DATE: 01/04/2017 PROCEDURE: Following an explanation of the risks, benefits and alternatives; written informed consent was obtained. The patient was brought to the angiographic suite and placed in right lateral oblique position on the examination table. Initial ultrasound survey of the right flank demonstrated moderate right-sided hydronephrosis. A superior pole right renal cyst is identified as well. The patient's right back and flank were prepped and draped in the usual sterile fashion. 1% lidocaine was used for anesthesia. Under ultrasound guidance, a posterior middle calyx was cannulated with a 18 cm 21-gauge needle. A 0.018 guidewire was advanced into the renal pelvis and the needle removed. In AccuStick transition dilator was then placed over the guidewire and advanced to the renal pelvis. Gentle injection of contrast documented appropriate positioning of the puncture and a 0.035 Glidewire was then advanced through the transition dilator down the ureter and coiled within the bladder. The transition dilator was removed. Following serial dilation, an 8 Setswana nephrostomy tube was placed over the guidewire and advanced to position the pigtail within the renal pelvis. There was prompt return of purulent sanguinous fluid. A sample was sent for laboratory analysis. The nephrostomy tube was securely fasten the skin surface using 2-0 Ethilon suture and a stay fixed device. A sterile dressing was then applied. The nephrostomy tube was placed to dependent drainage area The patient tolerated the procedure well. There were no immediate post procedure complications. Conscious sedation was performed under the guidance of radiologic nursing. Continuous cardiopulmonary monitoring was utilized. IMPRESSION: 1) Ultrasound and fluoroscopic guided placement of percutaneous right-sided nephrostomy tube. 2) Moderate right hydronephrosis with a renal pelvic stone and a distal ureteral stone. 3) Prompt return of purulent sanguinous fluid.
[2017-01-04] MEDS: K-DUR PO SCH (11:00)
[2017-01-04] MEDS: ROCEPHIN/NS 2 GM/100 ML 2 GM/100 ML BAG IV SCH (12:30)
--- NOTE | 2017-01-04 12:57 | Progress Note ---
Assessment and Plan Assessment and plan: 66-year-old male with history of hypertension, diabetes, seizure disorder, cerebral palsy, paraplegia 1. Right hydronephrosis secondary to ureteric stone at the UV junction - Bilateral renal stones, bilateral ureteric stones, bladder stones - Urology with left stent, cystoscopy - IR did right Nephrostomy tube - Continue IV Rocephin. 2. Hypertension - Controlled - Continue current medications 3. Diabetes mellitus type 2 - Insulin regimen 4.Seizure disorder - Continue her medications 5.Dementia - Continue donepezil DVT prophylaxis - Lovenox Disposition - Continue inpatient care History Interval history: Patient denied abdominal pain, fever. I saw him after he came back from procedure and was sleepy. Hospitalist Physical - Physical exam Narrative exam: Not in cardiopulmonary distress. The patient appeared well nourished and normally developed. Vital signs as documented. Head exam is unremarkable. No scleral icterus . Neck is without jugular venous distension, thyromegaly, or carotid bruits. Lungs are clear to auscultation. Cardiac exam reveals regular rate and Rhythm. First and second heart sounds normal. No murmurs, rubs or gallops. Abdominal exam reveals nontender, nondistended. Extremities significant for contractures. DIRECTOR HYDROGEN STORAGE ENGINEERING: Alert . - Constitutional Vitals: Temp Pulse Resp BP Pulse Ox 97.3 F L 57 L 18 142/89 98 01/04/17 07:30 01/04/17 07:30 01/04/17 07:30 01/04/17 07:30 01/04/17 07:30 General appearance: Present: no acute distress Results - Labs CBC & Chem 7: 01/04/17 05:02 01/04/17 05:02 Labs: Laboratory Last Values WBC 5.0 K/mm3 (4.5-11.0) 01/04/17 05:02 RBC 3.30 M/mm3 (3.65-5.03) L 01/04/17 05:02 Hgb 9.9 gm/dl (11.8-15.2) L 01/04/17 05:02 Hct 30.2 % (35.5-45.6) L 01/04/17 05:02 MCV 91 fl (84-94) 01/04/17 05:02 MCH 30 pg (28-32) 01/04/17 05:02 MCHC 33 % (32-34) 01/04/17 05:02 RDW 15.1 % (13.2-15.2) 01/04/17 05:02 Plt Count 276 K/mm3 (140-440) 01/04/17 05:02 Lymph % (Auto) 19.5 % (13.4-35.0) 01/04/17 05:02 [place] % (Auto) 8.3 % (0.0-7.3) H 01/04/17 05:02 Eos % (Auto) 2.4 % (0.0-4.3) 01/04/17 05:02 Baso % (Auto) 0.8 % (0.0-1.8) 01/04/17 05:02 Lymph # 1.0 K/mm3 (1.2-5.4) L 01/04/17 05:02 [place] # 0.4 K/mm3 (0.0-0.8) 01/04/17 05:02 Eos # 0.1 K/mm3 (0.0-0.4) 01/04/17 05:02 Baso # 0.0 K/mm3 (0.0-0.1) 01/04/17 05:02 Seg Neutrophils % 69.0 % (40.0-70.0) 01/04/17 05:02 Seg Neutrophils # 3.4 K/mm3 (1.8-7.7) 01/04/17 05:02 Sodium 145 mmol/L (137-145) 01/04/17 05:02 Potassium 4.1 mmol/L (3.6-5.0) 01/04/17 05:02 Chloride 111.8 mmol/L (98-107) H 01/04/17 05:02 Carbon Dioxide 21 mmol/L (22-30) L 01/04/17 05:02 Anion Gap 16 mmol/L 01/04/17 05:02 BUN 9 mg/dL (9-20) 01/04/17 05:02 Creatinine 0.7 mg/dL (0.8-1.5) L 01/04/17 05:02 Estimated GFR > 60 ml/min 01/04/17 05:02 BUN/Creatinine Ratio 12.85 % 01/04/17 05:02 Glucose 82 mg/dL (75-100) 01/04/17 05:02 POC Glucose 73 (70-105) 01/04/17 11:35 Calcium 8.0 mg/dL (8.4-10.2) L 01/04/17 05:02 Total Bilirubin 0.2 mg/dL (0.1-1.2) 01/01/17 06:20 AST 15 units/L (5-40) 01/01/17 06:20 ALT 18 units/L (7-56) 01/01/17 06:20 Alkaline Phosphatase 60 units/L (35-129) 01/01/17 06:20 Total Protein 7.4 g/dL (6.3-8.2) 01/01/17 06:20 Albumin 2.6 g/dL (3.9-5) L 01/01/17 06:20 Albumin/Globulin Ratio 0.5 % 01/01/17 06:20
[2017-01-04] MEDS: NACL 0.9% 1000 ML 1,000 ML IV SCH (13:18)
[2017-01-04] MEDS: CATAPRES PO SCH ×3 (13:22→23:48)
[2017-01-05] MEDS: NACL 0.9% 1000 ML 1,000 ML IV SCH (00:12)
[2017-01-05 05:20] LABS: Anion Gap 16 mmol/L; Blood Urea Nitrogen 6 mg/dL (9-20); Calcium 7.8 mg/dL (8.4-10.2); Carbon Dioxide 23 mmol/L (22-30); Chloride 109.7 mmol/L (98-107); Glucose 108 mg/dL (75-100); Potassium 3.5 mmol/L (3.6-5.0); Sodium 145 mmol/L (137-145)
[2017-01-05] MEDS: HEPARIN SUB-Q SCH ×3 (07:19→20:15)
--- NOTE | 2017-01-05 07:41 | Fluoroscopy Report ---
FLUOROSCOPY RETROGRADE UROGRAPHY HISTORY: Bilateral ureteral stones, nephrolithiasis. FINDINGS: Fluoroscopy was provided by radiology during retrograde urography by urology. 8 fluoroscopic images were captured. Images of the left pyelogram demonstrates an approximate 5 mm distal left ureteral stone and mild left hydronephrosis. A left ureteral stent was placed which adequately drained the collecting system. The left ureteral stone could not be removed per the operative notes because the patient was on aspirin therapy. Images of the right pyelogram are incomplete. The distal right ureter is dilated. The procedural report noted pus was present throughout the right collecting system. Please correlate with the operative notes by Dr. Adams. Impression: Distal left ureteral stone, left ureteral stent placement. Right pyoureter.
--- NOTE | 2017-01-05 08:08 | Ultrasound Report ---
ULTRASOUND BLADDER RESIDUAL HISTORY: Benign prostatic hyperplasia. TECHNIQUE: Transabdominal ultrasound with color Doppler interrogation. FINDINGS: Pre-void bladder volume measures 69 cc. Post void residual measures 8 cc. Images through the bladder demonstrate 2 areas of increased echogenicity and shadowing measuring up to 1 cm consistent with bladder stones. Mild diffuse bladder wall thickening is consistent with trabeculation. No obvious bladder mass. Impression: Post void residual measures 8 cc. Bladder stones.
[2017-01-05] MEDS: NOVOLOG SUB-Q SCH ×4 (09:18→22:15)
[2017-01-05] MEDS: CATAPRES PO SCH ×3 (10:12→20:30)
--- NOTE | 2017-01-05 10:15 | Progress Note ---
Assessment and Plan Patient status post placement of right-sided nephrostomy tube with resumption of urinary output from the right kidney. The patient will need placement of antegrade right ureteral stent. This will be scheduled for Thursday or of this week. Continue draining management with every shift flushes. Subjective Date of service: 01/05/17 Principal diagnosis: bilateral hydronephrosis. Interval history: Patient is postop day 1 status post placement of right nephrostomy tube. Initially, poor urine output however on examination, the patient has 800 mL's of clear yellow urine in his bag. Patient is afebrile with normal vital signs. Initial microbiology demonstrates no organisms identified. Patient is not complaining of anything at this time. Objective - Constitutional Vitals: Vital Signs - 12hr 01/04/17 01/05/17 01/05/17 23:48 00:00 04:00 Temperature 97.9 F 97.5 F L Pulse Rate 60 Pulse Rate [ 52 L 56 L Left Brachial] Respiratory 18 18 Rate Blood Pressure 152/85 Blood Pressure 153/88 134/72 [Left Arm] O2 Sat by Pulse 100 99 Oximetry General appearance: Present: no acute distress - EENT Eyes: irregular pupil ENT: hearing intact - Neck Neck: normal ROM - Respiratory Respiratory effort: normal - Gastrointestinal General gastrointestinal: Present: deferred Rectal Exam: deferred - Genitourinary Male genitourinary: deferred - Psychiatric Psychiatric: cooperative - Labs CBC & Chem 7: 01/04/17 05:02 01/05/17 04:41 Labs: Abnormal lab results 01/04/17 01/05/17 Range/Units 21:48 04:41 Potassium 3.5 L (3.6-5.0) mmol/L Chloride 109.7 H (98-107) mmol/L BUN 6 L (9-20) mg/dL Creatinine 0.6 L (0.8-1.5) mg/dL Glucose 108 H (75-100) mg/dL POC Glucose 142 H (70-105) Calcium 7.8 L (8.4-10.2) mg/dL
[2017-01-05] MEDS: TENORMIN PO SCH (10:20)
[2017-01-05] MEDS: HCTZ PO SCH (10:22)
[2017-01-05] MEDS: ROCEPHIN/NS 2 GM/100 ML 2 GM/100 ML BAG IV SCH (10:52)
[2017-01-05] MEDS: K-DUR PO SCH (10:54)
[2017-01-05] MEDS: ZOLOFT PO SCH (10:55)
[2017-01-05] MEDS: ARICEPT PO SCH (10:56)
[2017-01-05] MEDS: COLACE PO SCH (10:56)
--- NOTE | 2017-01-05 12:24 | Progress Note ---
Assessment and Plan Assessment and plan: 66-year-old male with history of hypertension, diabetes, seizure disorder, cerebral palsy, paraplegia 1. Right hydronephrosis secondary to ureteric stone at the UV junction - Bilateral renal stones, bilateral ureteric stones, bladder stones - Urology with left stent, cystoscopy - IR did right Nephrostomy tube - Patient need placement of antegrade right ureteral stent which will be placed on Thursday or - Continue IV Rocephin. 2. Hypertension - Controlled - Continue current medications 3. Diabetes mellitus type 2 - Insulin regimen 4.Seizure disorder - Continue her medications 5.Dementia - Continue donepezil DVT prophylaxis - Lovenox Disposition - Will be discharged once ureteral stent is placed. History Interval history: Patient said he is alright. No fever, chills or abdominal pain. Hospitalist Physical - Physical exam Narrative exam: Not in cardiopulmonary distress. The patient appeared well nourished and normally developed. Vital signs as documented. Head exam is unremarkable. No scleral icterus . Neck is without jugular venous distension, thyromegaly, or carotid bruits. Lungs are clear to auscultation. Cardiac exam reveals regular rate and Rhythm. First and second heart sounds normal. No murmurs, rubs or gallops. Abdominal exam reveals nontender, nondistended. Extremities significant for contractures. TRAFFIC MAINTENANCE SUPERVISOR: Alert . - Constitutional Vitals: Temp Pulse Resp BP Pulse Ox 97.5 F L 55 L 18 126/84 99 01/05/17 04:00 01/05/17 10:20 01/05/17 04:00 01/05/17 10:20 01/05/17 04:00 General appearance: Present: no acute distress Results - Labs CBC & Chem 7: 01/04/17 05:02 01/05/17 04:41 Labs: Laboratory Last Values WBC 5.0 K/mm3 (4.5-11.0) 01/04/17 05:02 RBC 3.30 M/mm3 (3.65-5.03) L 01/04/17 05:02 Hgb 9.9 gm/dl (11.8-15.2) L 01/04/17 05:02 Hct 30.2 % (35.5-45.6) L 01/04/17 05:02 MCV 91 fl (84-94) 01/04/17 05:02 MCH 30 pg (28-32) 01/04/17 05:02 MCHC 33 % (32-34) 01/04/17 05:02 RDW 15.1 % (13.2-15.2) 01/04/17 05:02 Plt Count 276 K/mm3 (140-440) 01/04/17 05:02 Lymph % (Auto) 19.5 % (13.4-35.0) 01/04/17 05:02 [place] % (Auto) 8.3 % (0.0-7.3) H 01/04/17 05:02 Eos % (Auto) 2.4 % (0.0-4.3) 01/04/17 05:02 Baso % (Auto) 0.8 % (0.0-1.8) 01/04/17 05:02 Lymph # 1.0 K/mm3 (1.2-5.4) L 01/04/17 05:02 [place] # 0.4 K/mm3 (0.0-0.8) 01/04/17 05:02 Eos # 0.1 K/mm3 (0.0-0.4) 01/04/17 05:02 Baso # 0.0 K/mm3 (0.0-0.1) 01/04/17 05:02 Seg Neutrophils % 69.0 % (40.0-70.0) 01/04/17 05:02 Seg Neutrophils # 3.4 K/mm3 (1.8-7.7) 01/04/17 05:02 Sodium 145 mmol/L (137-145) 01/05/17 04:41 Potassium 3.5 mmol/L (3.6-5.0) L 01/05/17 04:41 Chloride 109.7 mmol/L (98-107) H 01/05/17 04:41 Carbon Dioxide 23 mmol/L (22-30) 01/05/17 04:41 Anion Gap 16 mmol/L 01/05/17 04:41 BUN 6 mg/dL (9-20) L 01/05/17 04:41 Creatinine 0.6 mg/dL (0.8-1.5) L 01/05/17 04:41 Estimated GFR > 60 ml/min 01/05/17 04:41 BUN/Creatinine Ratio 10.00 % 01/05/17 04:41 Glucose 108 mg/dL (75-100) H 01/05/17 04:41 POC Glucose 100 (70-105) 01/05/17 09:05 Calcium 7.8 mg/dL (8.4-10.2) L 01/05/17 04:41 Total Bilirubin 0.2 mg/dL (0.1-1.2) 01/01/17 06:20 AST 15 units/L (5-40) 01/01/17 06:20 ALT 18 units/L (7-56) 01/01/17 06:20 Alkaline Phosphatase 60 units/L (35-129) 01/01/17 06:20 Total Protein 7.4 g/dL (6.3-8.2) 01/01/17 06:20 Albumin 2.6 g/dL (3.9-5) L 01/01/17 06:20 Albumin/Globulin Ratio 0.5 % 01/01/17 06:20
[2017-01-05] MEDS: ROBITUSSIN PO SCH ×2 (13:06→18:18)
[2017-01-05] MEDS: FLOMAX PO SCH (16:01)
[2017-01-06] MEDS: ROBITUSSIN PO SCH ×5 (00:20→17:38)
[2017-01-06] MEDS: HEPARIN SUB-Q SCH ×3 (05:15→21:42)
[2017-01-06 05:52] LABS: Anion Gap 17 mmol/L; BUN/Creatinine Ratio 6.66; Blood Urea Nitrogen 4 mg/dL (9-20); Calcium 8.4 mg/dL (8.4-10.2); Carbon Dioxide 23 mmol/L (22-30); Chloride 110.7 mmol/L (98-107); Glucose 87 mg/dL (75-100); Potassium 3.3 mmol/L (3.6-5.0); Sodium 147 mmol/L (137-145)
[2017-01-06] MEDS: NOVOLOG SUB-Q SCH ×4 (08:33→22:00)
[2017-01-06] MEDS: ZOLOFT PO SCH (09:16)
[2017-01-06] MEDS: FLOMAX PO SCH (09:16)
[2017-01-06] MEDS: K-DUR PO SCH (09:16)
[2017-01-06] MEDS: ARICEPT PO SCH (09:17)
[2017-01-06] MEDS: COLACE PO SCH (09:17)
[2017-01-06] MEDS: HCTZ PO SCH (09:17)
[2017-01-06] MEDS: CATAPRES PO SCH ×3 (09:17→21:41)
[2017-01-06] MEDS: ROCEPHIN/NS 2 GM/100 ML 2 GM/100 ML BAG IV SCH (09:20)
[2017-01-06] MEDS: TENORMIN PO SCH (09:28)
--- NOTE | 2017-01-06 18:08 | Event Note ---
Date: 01/06/17 S: on IR tabe afebrile i/p PAULINA URET STONE PAULINA RENAL STONE RIGHT PYONEPHROSIS BLADDER STONE s/p left stent - on IR table w/ neph tube just place, some purulent fluid - tentative plan disc w/ IR for antegrade stent later this week
--- NOTE | 2017-01-06 18:10 | Progress Note ---
Assessment and Plan PUALINA URET STONE PAULINA RENAL STONE RIGHT PYONEPHROSIS BLADDER STONE s/p left stent - on IR table w/ neph tube just place, some purulent fluid - tentative plan disc w/ IR for antegrade stent later this week - future outpt Uretersocopy w/ laser and Cystolitholapaxy Subjective Date of service: 01/06/17 Principal diagnosis: bilateral hydronephrosis. Interval history: resting, no sig pain Objective - Constitutional Vitals: Vital Signs - 12hr 01/06/17 01/06/17 01/06/17 07:30 09:17 09:28 Temperature 98.0 F Pulse Rate 75 75 Pulse Rate [ 75 Left Brachial] Respiratory 19 Rate Blood Pressure 116/75 116/75 Blood Pressure 116/75 [Left Arm] O2 Sat by Pulse 100 Oximetry 01/06/17 16:30 Temperature 97.5 F L Pulse Rate Pulse Rate [ 86 Left Brachial] Respiratory 20 Rate Blood Pressure Blood Pressure 93/69 [Left Arm] O2 Sat by Pulse 98 Oximetry - Gastrointestinal Rectal Exam: other (cath clear; neph tube pink tinge) - Labs CBC & Chem 7: 01/04/17 05:02 01/06/17 04:58 Labs: Abnormal lab results 01/06/17 01/06/17 01/06/17 Range/Units 04:58 11:13 16:06 Sodium 147 H (137-145) mmol/L Potassium 3.3 L (3.6-5.0) mmol/L Chloride 110.7 H (98-107) mmol/L BUN 4 L (9-20) mg/dL Creatinine 0.6 L (0.8-1.5) mg/dL POC Glucose 134 H 121 H (70-105)
[2017-01-06] MEDS: NACL 0.9% 1000 ML 1,000 ML IV SCH (18:26)
--- NOTE | 2017-01-06 21:47 | Progress Note ---
Assessment and Plan - Patient Problems (1) Bilateral hydronephrosis Current Visit: Yes Status: Acute Plan to address problem: S/P Left Uretic stent placement, Pending R uretic stent placement.Urology consulted, (2) UTI (urinary tract infection) Current Visit: Yes Status: Acute Qualifiers: Urinary tract infection type: U Hematuria presence: H Indwelling urinary catheter type: I Encounter type: E Plan to address problem: IV abx, ivf, supportive care (3) HTN (hypertension) Current Visit: Yes Status: Acute Qualifiers: Hypertension type: H Plan to address problem: Monitor bp q shift, continue current medication. (4) Diabetes Current Visit: Yes Status: Acute Qualifiers: Diabetes mellitus type: D Diabetes mellitus complication status: D Diabetes mellitus complication detail: D Diabetic retinopathy severity: D Proliferative retinopathy type: P Diabetes mellitus macular edema: D Diabetes mellitus terminal carman insulin use: D Laterality: L Chronic kidney disease stage: C Plan to address problem: ADA diet, insulin, accu check (5) Seizure disorder Current Visit: Yes Status: Acute Plan to address problem: Continue current therapy, (6) DVT prophylaxis Current Visit: Yes Status: Acute History Interval history: Pt resting in bed, No reported nursing events. Pt denies pain. Hospitalist Physical - Constitutional Vitals: Temp Pulse Resp BP Pulse Ox 97.5 F L 56 L 20 116/72 98 01/06/17 16:30 01/06/17 21:41 01/06/17 16:30 01/06/17 21:41 01/06/17 16:30 General appearance: Present: no acute distress - EENT ENT: hearing intact - Neck Neck: Present: supple - Respiratory Respiratory: bilateral: diminished - Cardiovascular Rhythm: regular Heart Sounds: Present: S1 & S2 - Extremities Extremities: no ischemia Peripheral Pulses: within normal limits - Abdominal General gastrointestinal: soft, non-distended - Integumentary Integumentary: Present: clear, dry - Psychiatric Psychiatric: cooperative - Neurologic Neurologic: no gait normal Results - Labs CBC & Chem 7: 01/04/17 05:02 01/06/17 04:58 Labs: Laboratory Last Values WBC 5.0 K/mm3 (4.5-11.0) 01/04/17 05:02 RBC 3.30 M/mm3 (3.65-5.03) L 01/04/17 05:02 Hgb 9.9 gm/dl (11.8-15.2) L 01/04/17 05:02 Hct 30.2 % (35.5-45.6) L 01/04/17 05:02 MCV 91 fl (84-94) 01/04/17 05:02 MCH 30 pg (28-32) 01/04/17 05:02 MCHC 33 % (32-34) 01/04/17 05:02 RDW 15.1 % (13.2-15.2) 01/04/17 05:02 Plt Count 276 K/mm3 (140-440) 01/04/17 05:02 Lymph % (Auto) 19.5 % (13.4-35.0) 01/04/17 05:02 [place] % (Auto) 8.3 % (0.0-7.3) H 01/04/17 05:02 Eos % (Auto) 2.4 % (0.0-4.3) 01/04/17 05:02 Baso % (Auto) 0.8 % (0.0-1.8) 01/04/17 05:02 Lymph # 1.0 K/mm3 (1.2-5.4) L 01/04/17 05:02 [place] # 0.4 K/mm3 (0.0-0.8) 01/04/17 05:02 Eos # 0.1 K/mm3 (0.0-0.4) 01/04/17 05:02 Baso # 0.0 K/mm3 (0.0-0.1) 01/04/17 05:02 Seg Neutrophils % 69.0 % (40.0-70.0) 01/04/17 05:02 Seg Neutrophils # 3.4 K/mm3 (1.8-7.7) 01/04/17 05:02 Sodium 147 mmol/L (137-145) H 01/06/17 04:58 Potassium 3.3 mmol/L (3.6-5.0) L 01/06/17 04:58 Chloride 110.7 mmol/L (98-107) H 01/06/17 04:58 Carbon Dioxide 23 mmol/L (22-30) 01/06/17 04:58 Anion Gap 17 mmol/L 01/06/17 04:58 BUN 4 mg/dL (9-20) L 01/06/17 04:58 Creatinine 0.6 mg/dL (0.8-1.5) L 01/06/17 04:58 Estimated GFR > 60 ml/min 01/06/17 04:58 BUN/Creatinine Ratio 6.66 % 01/06/17 04:58 Glucose 87 mg/dL (75-100) 01/06/17 04:58 POC Glucose 121 (70-105) H 01/06/17 16:06 Calcium 8.4 mg/dL (8.4-10.2) 01/06/17 04:58 Total Bilirubin 0.2 mg/dL (0.1-1.2) 01/01/17 06:20 AST 15 units/L (5-40) 01/01/17 06:20 ALT 18 units/L (7-56) 01/01/17 06:20 Alkaline Phosphatase 60 units/L (35-129) 01/01/17 06:20 Total Protein 7.4 g/dL (6.3-8.2) 01/01/17 06:20 Albumin 2.6 g/dL (3.9-5) L 01/01/17 06:20 Albumin/Globulin Ratio 0.5 % 01/01/17 06:20
[2017-01-07] MEDS: ROBITUSSIN PO SCH ×2 (00:07→05:22)
[2017-01-07] MEDS: HEPARIN SUB-Q SCH (04:20)
[2017-01-07] MEDS ORDERED: SUBLIMAZE ONE (09:21)
[2017-01-07] MEDS ORDERED: XYLOCAINE 2% INFILTRATI ONE (09:21)
[2017-01-07] MEDS ORDERED: NACL 0.9% 500 ML 0 ML ONE (09:21)
[2017-01-07] MEDS ORDERED: VERSED ONE (09:21)
[2017-01-07] MEDS: CATAPRES PO SCH (09:38)
[2017-01-07] MEDS: NOVOLOG SUB-Q SCH ×2 (09:38→23:00)
[2017-01-07] MEDS: ARICEPT PO SCH (09:38)
[2017-01-07] MEDS: K-DUR PO SCH (09:39)
[2017-01-07] MEDS: FLOMAX PO SCH (09:39)
[2017-01-07] MEDS: HCTZ PO SCH (09:39)
[2017-01-07] MEDS: TENORMIN PO SCH (09:39)
[2017-01-07] MEDS: COLACE PO SCH (09:39)
--- NOTE | 2017-01-07 10:13 | Event Note ---
Date: 01/07/17 NPO for ureteral stent placement and PCN exchange. Could not contact family for consent. Resume diet. NPO after MN. Will attempt to contact family again.
--- NOTE | 2017-01-07 18:07 | Progress Note ---
Assessment and Plan - Patient Problems (1) Bilateral hydronephrosis Current Visit: Yes Status: Acute Plan to address problem: S/P Left Uretic stent placement, Pending R uretic stent placement.Urology consulted, Awaiting consent from family (2) UTI (urinary tract infection) Current Visit: Yes Status: Acute Qualifiers: Urinary tract infection type: U Hematuria presence: H Indwelling urinary catheter type: I Encounter type: E Plan to address problem: IV abx, ivf, supportive care (3) HTN (hypertension) Current Visit: Yes Status: Acute Qualifiers: Hypertension type: H Plan to address problem: Monitor bp q shift, continue current medication. (4) Diabetes Current Visit: Yes Status: Acute Qualifiers: Diabetes mellitus type: D Diabetes mellitus complication status: D Diabetes mellitus complication detail: D Diabetic retinopathy severity: D Proliferative retinopathy type: P Diabetes mellitus macular edema: D Diabetes mellitus halfway insulin use: D Laterality: L Chronic kidney disease stage: C Plan to address problem: ADA diet, insulin, accu check (5) Seizure disorder Current Visit: Yes Status: Acute Plan to address problem: Continue current therapy, (6) DVT prophylaxis Current Visit: Yes Status: Acute History Interval history: Pt resting in bed, No reported nursing events. Pt denies pain. Pending stent placement. Hospitalist Physical - Constitutional Vitals: Temp Pulse Resp BP Pulse Ox 98.3 F 62 18 159/84 97 01/07/17 16:30 01/07/17 16:30 01/07/17 16:30 01/07/17 16:30 01/07/17 08:00 General appearance: Present: no acute distress - EENT ENT: hearing intact - Neck Neck: Present: supple - Respiratory Respiratory: bilateral: CTA - Cardiovascular Rhythm: regular Heart Sounds: Present: S1 & S2 - Extremities Extremities: no ischemia Peripheral Pulses: within normal limits - Abdominal General gastrointestinal: soft, non-tender, non-distended - Integumentary Integumentary: Present: clear, dry - Neurologic Neurologic: no gait normal Results - Labs CBC & Chem 7: 01/04/17 05:02 01/06/17 04:58 Labs: Laboratory Last Values WBC 5.0 K/mm3 (4.5-11.0) 01/04/17 05:02 RBC 3.30 M/mm3 (3.65-5.03) L 01/04/17 05:02 Hgb 9.9 gm/dl (11.8-15.2) L 01/04/17 05:02 Hct 30.2 % (35.5-45.6) L 01/04/17 05:02 MCV 91 fl (84-94) 01/04/17 05:02 MCH 30 pg (28-32) 01/04/17 05:02 MCHC 33 % (32-34) 01/04/17 05:02 RDW 15.1 % (13.2-15.2) 01/04/17 05:02 Plt Count 276 K/mm3 (140-440) 01/04/17 05:02 Lymph % (Auto) 19.5 % (13.4-35.0) 01/04/17 05:02 [place] % (Auto) 8.3 % (0.0-7.3) H 01/04/17 05:02 Eos % (Auto) 2.4 % (0.0-4.3) 01/04/17 05:02 Baso % (Auto) 0.8 % (0.0-1.8) 01/04/17 05:02 Lymph # 1.0 K/mm3 (1.2-5.4) L 01/04/17 05:02 [place] # 0.4 K/mm3 (0.0-0.8) 01/04/17 05:02 Eos # 0.1 K/mm3 (0.0-0.4) 01/04/17 05:02 Baso # 0.0 K/mm3 (0.0-0.1) 01/04/17 05:02 Seg Neutrophils % 69.0 % (40.0-70.0) 01/04/17 05:02 Seg Neutrophils # 3.4 K/mm3 (1.8-7.7) 01/04/17 05:02 Sodium 147 mmol/L (137-145) H 01/06/17 04:58 Potassium 3.3 mmol/L (3.6-5.0) L 01/06/17 04:58 Chloride 110.7 mmol/L (98-107) H 01/06/17 04:58 Carbon Dioxide 23 mmol/L (22-30) 01/06/17 04:58 Anion Gap 17 mmol/L 01/06/17 04:58 BUN 4 mg/dL (9-20) L 01/06/17 04:58 Creatinine 0.6 mg/dL (0.8-1.5) L 01/06/17 04:58 Estimated GFR > 60 ml/min 01/06/17 04:58 BUN/Creatinine Ratio 6.66 % 01/06/17 04:58 Glucose 87 mg/dL (75-100) 01/06/17 04:58 POC Glucose 121 (70-105) H 01/06/17 16:06 Calcium 8.4 mg/dL (8.4-10.2) 01/06/17 04:58 Total Bilirubin 0.2 mg/dL (0.1-1.2) 01/01/17 06:20 AST 15 units/L (5-40) 01/01/17 06:20 ALT 18 units/L (7-56) 01/01/17 06:20 Alkaline Phosphatase 60 units/L (35-129) 01/01/17 06:20 Total Protein 7.4 g/dL (6.3-8.2) 01/01/17 06:20 Albumin 2.6 g/dL (3.9-5) L 01/01/17 06:20 Albumin/Globulin Ratio 0.5 % 01/01/17 06:20
[2017-01-08] MEDS: ROBITUSSIN PO SCH ×4 (00:39→19:01)
[2017-01-08] MEDS: HEPARIN SUB-Q SCH ×4 (00:42→22:11)
[2017-01-08] MEDS: CATAPRES PO SCH ×4 (00:43→22:12)
--- NOTE | 2017-01-08 01:05 | Progress Note ---
Assessment and Plan PAULINA URET STONE PAULINA RENAL STONE RIGHT PYONEPHROSIS BLADDER STONE s/p left stent - late entry seen early am - tentative plan antegrade stent - future outpt Uretersocopy w/ laser and Cystolitholapaxy - ok to discharge home with f/u urology 1 wk after discharge Subjective Date of service: 01/07/17 Principal diagnosis: bilateral hydronephrosis. Interval history: pt resting Objective - Constitutional Vitals: Vital Signs - 12hr 01/07/17 01/07/17 01/08/17 16:30 20:00 00:43 Temperature 98.3 F 98 F Pulse Rate 84 Pulse Rate [ 62 86 Left Brachial] Respiratory 18 18 Rate Blood Pressure 124/74 Blood Pressure 159/84 138/68 [Left Arm] O2 Sat by Pulse 98 Oximetry - Gastrointestinal General gastrointestinal: Present: other (neph tube pink; cath clear) - Labs CBC & Chem 7: 01/04/17 05:02 01/06/17 04:58 Labs: Abnormal lab results 01/06/17 Range/Units 23:07 POC Glucose 108 H (70-105)
[2017-01-08] MEDS: COLACE PO SCH (10:00)
[2017-01-08] MEDS: HCTZ PO SCH (10:00)
[2017-01-08] MEDS: ARICEPT PO SCH (10:00)
[2017-01-08] MEDS: K-DUR PO SCH (10:00)
[2017-01-08] MEDS: ROCEPHIN/NS 2 GM/100 ML 2 GM/100 ML BAG IV SCH ×2 (10:39→11:10)
[2017-01-08] MEDS: TENORMIN PO SCH (10:46)
[2017-01-08] MEDS: FLOMAX PO SCH (10:46)
--- NOTE | 2017-01-08 11:33 | Progress Note ---
Assessment and Plan - Patient Problems (1) Bilateral hydronephrosis Current Visit: Yes Status: Acute Plan to address problem: S/P Left Uretic stent placement, Pending R uretic stent placement. Urology consulted, IR consulted. D/C Planning in AM. (2) UTI (urinary tract infection) Current Visit: Yes Status: Acute Qualifiers: Urinary tract infection type: U Hematuria presence: H Indwelling urinary catheter type: I Encounter type: E Plan to address problem: IV abx, ivf, supportive care (3) HTN (hypertension) Current Visit: Yes Status: Acute Qualifiers: Hypertension type: H Plan to address problem: Monitor bp q shift, continue current medication. (4) Diabetes Current Visit: Yes Status: Acute Qualifiers: Diabetes mellitus type: D Diabetes mellitus complication status: D Diabetes mellitus complication detail: D Diabetic retinopathy severity: D Proliferative retinopathy type: P Diabetes mellitus macular edema: D Diabetes mellitus chcf insulin use: D Laterality: L Chronic kidney disease stage: C Plan to address problem: ADA diet, insulin, accu check (5) Seizure disorder Current Visit: Yes Status: Acute Plan to address problem: Continue current therapy, (6) DVT prophylaxis Current Visit: Yes Status: Acute History Interval history: Pt resting in bed, No reported nursing events. Pt denies pain. Pt medically stable overnight. Pending stent placement today. Hospitalist Physical - Constitutional Vitals: Temp Pulse Resp BP Pulse Ox 98.4 F 62 18 148/89 99 01/08/17 07:35 01/08/17 07:35 01/08/17 07:35 01/08/17 07:35 01/08/17 07:35 General appearance: Present: no acute distress - EENT ENT: hearing intact - Neck Neck: Present: supple - Respiratory Respiratory: bilateral: diminished - Cardiovascular Rhythm: regular Heart Sounds: Present: S1 & S2 - Extremities Extremities: no ischemia Peripheral Pulses: within normal limits - Abdominal General gastrointestinal: soft, non-tender, non-distended - Integumentary Integumentary: Present: clear, dry - Psychiatric Psychiatric: appropriate mood/affect, cooperative - Neurologic Neurologic: CNII-XII intact Results - Labs CBC & Chem 7: 01/04/17 05:02 01/06/17 04:58 Labs: Laboratory Last Values WBC 5.0 K/mm3 (4.5-11.0) 01/04/17 05:02 RBC 3.30 M/mm3 (3.65-5.03) L 01/04/17 05:02 Hgb 9.9 gm/dl (11.8-15.2) L 01/04/17 05:02 Hct 30.2 % (35.5-45.6) L 01/04/17 05:02 MCV 91 fl (84-94) 01/04/17 05:02 MCH 30 pg (28-32) 01/04/17 05:02 MCHC 33 % (32-34) 01/04/17 05:02 RDW 15.1 % (13.2-15.2) 01/04/17 05:02 Plt Count 276 K/mm3 (140-440) 01/04/17 05:02 Lymph % (Auto) 19.5 % (13.4-35.0) 01/04/17 05:02 [place] % (Auto) 8.3 % (0.0-7.3) H 01/04/17 05:02 Eos % (Auto) 2.4 % (0.0-4.3) 01/04/17 05:02 Baso % (Auto) 0.8 % (0.0-1.8) 01/04/17 05:02 Lymph # 1.0 K/mm3 (1.2-5.4) L 01/04/17 05:02 [place] # 0.4 K/mm3 (0.0-0.8) 01/04/17 05:02 Eos # 0.1 K/mm3 (0.0-0.4) 01/04/17 05:02 Baso # 0.0 K/mm3 (0.0-0.1) 01/04/17 05:02 Seg Neutrophils % 69.0 % (40.0-70.0) 01/04/17 05:02 Seg Neutrophils # 3.4 K/mm3 (1.8-7.7) 01/04/17 05:02 Sodium 147 mmol/L (137-145) H 01/06/17 04:58 Potassium 3.3 mmol/L (3.6-5.0) L 01/06/17 04:58 Chloride 110.7 mmol/L (98-107) H 01/06/17 04:58 Carbon Dioxide 23 mmol/L (22-30) 01/06/17 04:58 Anion Gap 17 mmol/L 01/06/17 04:58 BUN 4 mg/dL (9-20) L 01/06/17 04:58 Creatinine 0.6 mg/dL (0.8-1.5) L 01/06/17 04:58 Estimated GFR > 60 ml/min 01/06/17 04:58 BUN/Creatinine Ratio 6.66 % 01/06/17 04:58 Glucose 87 mg/dL (75-100) 01/06/17 04:58 POC Glucose 108 (70-105) H 01/06/17 23:07 Calcium 8.4 mg/dL (8.4-10.2) 01/06/17 04:58 Total Bilirubin 0.2 mg/dL (0.1-1.2) 01/01/17 06:20 AST 15 units/L (5-40) 01/01/17 06:20 ALT 18 units/L (7-56) 01/01/17 06:20 Alkaline Phosphatase 60 units/L (35-129) 01/01/17 06:20 Total Protein 7.4 g/dL (6.3-8.2) 01/01/17 06:20 Albumin 2.6 g/dL (3.9-5) L 01/01/17 06:20 Albumin/Globulin Ratio 0.5 % 01/01/17 06:20
[2017-01-08] MEDS ORDERED: XYLOCAINE 1% 20 mL ONE (14:20)
[2017-01-08] MEDS ORDERED: NACL 0.9% 500 ML 500 ML ONE (14:21)
[2017-01-08] MEDS ORDERED: NACL 0.9% 250ML 250 ML ONE (14:27)
[2017-01-08] MEDS ORDERED: LEVAQUIN 500MG/100ML 500 MG/100 ML BAG IV ONE (14:29)
[2017-01-08] MEDS: SUBLIMAZE ONE ×2 (14:40→15:01)
[2017-01-08] MEDS: VERSED ONE ×2 (14:40→14:55)
--- NOTE | 2017-01-08 15:31 | Event Note ---
Date: 01/08/17 Has a small right proximal ureteral injury, possibly secondary to his underlying infection and friable nature of his collecting system. Noted on pre- procedural images. Successful stenting and nephrostomy tube exchange. Recommend keeping overnight. Can consider discharge in AM. Set up for nephrostogram evaluation on 01/[address] Erickson to re-evaluate proximal ureteral injury (which will likely have healed) and nephrostomy removal
--- NOTE | 2017-01-08 15:33 | Operative Report ---
Operative Report Operative Report: EXAM: 1. Right-sided percutaneous nephrostomy nephrostogram 2. Selection of the bladder to the right-sided nephrostomy access with contrast opacification 3. Fluoroscopic-guided placement of a 7 [place] 28 cm right-sided ureteral stent 4. Fluoroscopic guided exchange of an 8 [place] right-sided nephrostomy tube DATE: 01/08/17 STATION MANAGER: VIKAS HERNANDEZ MD INDICATION: 66-year-old male with MEDICATIONS: Please see nursing report for full details. DEVICES: 7 [place] 28 cm ureteral stent CONTRAST: Please see Lab report for full details. PROCEDURE: The risks, benefits, and alternatives were discussed with the patient's power of child care center administrator/cousin. Telephone consent was obtained. The nephrostomy tube on the right side was prepped and draped in a sterile fashion. Contrast was injected to the nephrostomy tube demonstrating moderate hydronephrosis with some stones in the renal calculi with severe narrowing of the proximal ureter which upon contrast injection slightly distended and revealed a small ureteral leak. There is occlusion of the distal ureter with hydroureter. There is a left-sided ureteral stent placed by urology. 0.035 inch wire was passed through the nephrostomy tube in the nephrostomy tube was removed. Angled catheter was advanced over the wire and the wire and catheter were then negotiated into the bladder which crossed the occlusion. The bladder was distended as the [place] was clamped. Contrast was injected to the bladder confirming position in the bladder and distending it in order to place wire. 0.035 inch wire was passed into the bladder. Angled catheter was removed. 8 [place] 23 cm sheath was advanced over the wire into the ureter. 7 [place] 28 cm ureteral stent was advanced over the wire through the sheath with the use of the pusher device. Sheath was removed. The ureteral stent was then advanced into the bladder and successfully deployed and subsequently the 0.0.35 wire was removed and replaced in the renal pelvis through the pusher. The ureteral stent was then retracted with the attached strings to the renal pelvis, string was cut and removed, and the stent was deployed successfully with cope loops formed in the renal pelvis and in the bladder. The pusher device was removed over a 0.035 wire. 8 [place] nephrostomy tube was advanced over the wire and successfully deployed in the renal pelvis with formation of the cope loop. Wire was removed. Contrast was injected confirming patency of the newly placed ureteral stent, but also demonstrating the proximal ureteral leak to better extent. Nephrostomy tube was sutured in place with silk suture. StatLock device applied. I discussed the findings of the case with Dr. Adams and our conclusion was to leave the nephrostomy tube in for approximately 10 days which, in addition to the ureteral stent, will allow urinary diversion and closure of the ureteral leak. FINDINGS: Please see procedure note above. IMPRESSION: Successful placement of a right-sided ureteral stent. Successful right-sided nephrostomy tube exchange Patient will be scheduled for nephrostomy tube evaluation and probable removal in 10 days.
[2017-01-08] MEDS: NOVOLOG SUB-Q SCH ×2 (18:59→22:11)
[2017-01-08] MEDS: ZOLOFT PO SCH (18:59)
[2017-01-08] MEDS: PERCOCET 5/325 PO PRN (22:15)
[2017-01-08] MEDS: NACL 0.9% 1000 ML 1,000 ML IV SCH (22:16)
[2017-01-09] MEDS: ROBITUSSIN PO SCH ×4 (00:14→20:57)
[2017-01-09] MEDS: HEPARIN SUB-Q SCH ×4 (03:58→23:08)
[2017-01-09] MEDS: NOVOLOG SUB-Q SCH ×4 (08:00→22:59)
[2017-01-09] MEDS: COLACE PO SCH (10:00)
[2017-01-09] MEDS: TENORMIN PO SCH (10:00)
[2017-01-09] MEDS: K-DUR PO SCH (10:00)
[2017-01-09] MEDS: ZOLOFT PO SCH (10:27)
[2017-01-09] MEDS: FLOMAX PO SCH (10:27)
[2017-01-09] MEDS: ARICEPT PO SCH (10:27)
[2017-01-09] MEDS: HCTZ PO SCH (10:27)
[2017-01-09] MEDS: CATAPRES PO SCH ×3 (10:28→23:03)
[2017-01-09] MEDS: NACL 0.9% 1000 ML 1,000 ML IV SCH (20:59)
[2017-01-10] MEDS: ROBITUSSIN PO SCH ×4 (03:44→13:06)
[2017-01-10] MEDS: HEPARIN SUB-Q SCH ×3 (04:24→23:26)
[2017-01-10] MEDS: CATAPRES PO SCH ×4 (08:14→23:24)
[2017-01-10] MEDS: NOVOLOG SUB-Q SCH ×3 (08:21→23:22)
[2017-01-10] MEDS: NACL 0.9% 1000 ML 1,000 ML IV SCH ×2 (09:40→23:44)
[2017-01-10] MEDS: TENORMIN PO SCH (10:10)
[2017-01-10] MEDS: HCTZ PO SCH (10:11)
[2017-01-10] MEDS: FLOMAX PO SCH (10:12)
[2017-01-10] MEDS: COLACE PO SCH (10:16)
[2017-01-10] MEDS: ZOLOFT PO SCH ×2 (10:17→11:17)
[2017-01-10] MEDS: ARICEPT PO SCH (10:22)
[2017-01-10] MEDS: K-DUR PO SCH (10:25)
[2017-01-10] MEDS: ROCEPHIN/NS 2 GM/100 ML 2 GM/100 ML BAG IV SCH ×2 (10:28→16:30)
--- NOTE | 2017-01-10 12:25 | Progress Note ---
Assessment and Plan - Patient Problems (1) Bilateral hydronephrosis Current Visit: Yes Status: Acute Plan to address problem: S/P Left Uretic stent placement, S/P R uretic stent placement. Urology consulted , IR consulted. D/C Planning. (2) UTI (urinary tract infection) Current Visit: Yes Status: Acute Qualifiers: Urinary tract infection type: U Hematuria presence: H Indwelling urinary catheter type: I Encounter type: E Plan to address problem: IV abx, ivf, supportive care (3) HTN (hypertension) Current Visit: Yes Status: Acute Qualifiers: Hypertension type: H Plan to address problem: Monitor bp q shift, continue current medication. (4) Diabetes Current Visit: Yes Status: Acute Qualifiers: Diabetes mellitus type: D Diabetes mellitus complication status: D Diabetes mellitus complication detail: D Diabetic retinopathy severity: D Proliferative retinopathy type: P Diabetes mellitus macular edema: D Diabetes mellitus group home insulin use: D Laterality: L Chronic kidney disease stage: C Plan to address problem: ADA diet, insulin, accu check (5) Seizure disorder Current Visit: Yes Status: Acute Plan to address problem: Continue current therapy, (6) DVT prophylaxis Current Visit: Yes Status: Acute History Interval history: Pt resting in bed, No reported nursing events. Pt denies pain. Pt medically stable overnight. S/P stent placement today. D/C planning Hospitalist Physical - Constitutional Vitals: Temp Pulse Resp BP Pulse Ox 98.0 F 63 16 174/82 100 01/10/17 08:00 01/10/17 10:10 01/10/17 08:00 01/10/17 10:10 01/10/17 08:00 General appearance: Present: no acute distress - EENT Eyes: Present: PERRL ENT: hearing intact - Neck Neck: Present: supple - Respiratory Respiratory: bilateral: diminished - Cardiovascular Rhythm: regular Heart Sounds: Present: S1 & S2 - Extremities Extremities: no ischemia Peripheral Pulses: within normal limits - Abdominal General gastrointestinal: soft, non-distended, no hepatomegaly, no splenomegaly - Integumentary Integumentary: Present: clear, dry - Neurologic Neurologic: no gait normal Results - Labs CBC & Chem 7: 01/04/17 05:02 01/06/17 04:58 Labs: Laboratory Last Values WBC 5.0 K/mm3 (4.5-11.0) 01/04/17 05:02 RBC 3.30 M/mm3 (3.65-5.03) L 01/04/17 05:02 Hgb 9.9 gm/dl (11.8-15.2) L 01/04/17 05:02 Hct 30.2 % (35.5-45.6) L 01/04/17 05:02 MCV 91 fl (84-94) 01/04/17 05:02 MCH 30 pg (28-32) 01/04/17 05:02 MCHC 33 % (32-34) 01/04/17 05:02 RDW 15.1 % (13.2-15.2) 01/04/17 05:02 Plt Count 276 K/mm3 (140-440) 01/04/17 05:02 Lymph % (Auto) 19.5 % (13.4-35.0) 01/04/17 05:02 [place] % (Auto) 8.3 % (0.0-7.3) H 01/04/17 05:02 Eos % (Auto) 2.4 % (0.0-4.3) 01/04/17 05:02 Baso % (Auto) 0.8 % (0.0-1.8) 01/04/17 05:02 Lymph # 1.0 K/mm3 (1.2-5.4) L 01/04/17 05:02 [place] # 0.4 K/mm3 (0.0-0.8) 01/04/17 05:02 Eos # 0.1 K/mm3 (0.0-0.4) 01/04/17 05:02 Baso # 0.0 K/mm3 (0.0-0.1) 01/04/17 05:02 Seg Neutrophils % 69.0 % (40.0-70.0) 01/04/17 05:02 Seg Neutrophils # 3.4 K/mm3 (1.8-7.7) 01/04/17 05:02 Sodium 147 mmol/L (137-145) H 01/06/17 04:58 Potassium 3.3 mmol/L (3.6-5.0) L 01/06/17 04:58 Chloride 110.7 mmol/L (98-107) H 01/06/17 04:58 Carbon Dioxide 23 mmol/L (22-30) 01/06/17 04:58 Anion Gap 17 mmol/L 01/06/17 04:58 BUN 4 mg/dL (9-20) L 01/06/17 04:58 Creatinine 0.6 mg/dL (0.8-1.5) L 01/06/17 04:58 Estimated GFR > 60 ml/min 01/06/17 04:58 BUN/Creatinine Ratio 6.66 % 01/06/17 04:58 Glucose 87 mg/dL (75-100) 01/06/17 04:58 POC Glucose 108 (70-105) H 01/06/17 23:07 Calcium 8.4 mg/dL (8.4-10.2) 01/06/17 04:58 Total Bilirubin 0.2 mg/dL (0.1-1.2) 01/01/17 06:20 AST 15 units/L (5-40) 01/01/17 06:20 ALT 18 units/L (7-56) 01/01/17 06:20 Alkaline Phosphatase 60 units/L (35-129) 01/01/17 06:20 Total Protein 7.4 g/dL (6.3-8.2) 01/01/17 06:20 Albumin 2.6 g/dL (3.9-5) L 01/01/17 06:20 Albumin/Globulin Ratio 0.5 % 01/01/17 06:20
--- NOTE | 2017-01-10 13:22 | Progress Note ---
Assessment and Plan - Patient Problems (1) Bilateral hydronephrosis Current Visit: Yes Status: Acute Plan to address problem: S/P Left Uretic stent placement, S/P R uretic stent placement. Urology consulted , IR consulted. D/C Planning. (2) UTI (urinary tract infection) Current Visit: Yes Status: Acute Qualifiers: Urinary tract infection type: U Hematuria presence: H Indwelling urinary catheter type: I Encounter type: E Plan to address problem: IV abx, ivf, supportive care, repeat cbc, (3) HTN (hypertension) Current Visit: Yes Status: Acute Qualifiers: Hypertension type: H Plan to address problem: Monitor bp q shift, continue current medication. (4) Diabetes Current Visit: Yes Status: Acute Qualifiers: Diabetes mellitus type: D Diabetes mellitus complication status: D Diabetes mellitus complication detail: D Diabetic retinopathy severity: D Proliferative retinopathy type: P Diabetes mellitus macular edema: D Diabetes mellitus usp insulin use: D Laterality: L Chronic kidney disease stage: C Plan to address problem: ADA diet, insulin, accu check (5) Seizure disorder Current Visit: Yes Status: Acute Plan to address problem: Continue current therapy, (6) DVT prophylaxis Current Visit: Yes Status: Acute History Interval history: Pt resting in bed, No reported nursing events. Pt denies pain. Pt medically stable overnight. S/P stent placement. D/C planning Hospitalist Physical - Constitutional Vitals: Temp Pulse Resp BP Pulse Ox 98.0 F 63 16 174/82 100 01/10/17 08:00 01/10/17 10:10 01/10/17 08:00 01/10/17 10:10 01/10/17 08:00 General appearance: Present: no acute distress - EENT ENT: hearing intact - Neck Neck: Present: supple - Respiratory Respiratory: bilateral: CTA - Cardiovascular Rhythm: regular Heart Sounds: Present: S1 & S2 - Extremities Extremities: no ischemia Extremity abnormal: edema Peripheral Pulses: within normal limits - Abdominal General gastrointestinal: soft, non-distended - Integumentary Integumentary: Present: clear - Psychiatric Psychiatric: appropriate mood/affect - Neurologic Neurologic: no gait normal Results - Labs CBC & Chem 7: 01/04/17 05:02 01/06/17 04:58 Labs: Laboratory Last Values WBC 5.0 K/mm3 (4.5-11.0) 01/04/17 05:02 RBC 3.30 M/mm3 (3.65-5.03) L 01/04/17 05:02 Hgb 9.9 gm/dl (11.8-15.2) L 01/04/17 05:02 Hct 30.2 % (35.5-45.6) L 01/04/17 05:02 MCV 91 fl (84-94) 01/04/17 05:02 MCH 30 pg (28-32) 01/04/17 05:02 MCHC 33 % (32-34) 01/04/17 05:02 RDW 15.1 % (13.2-15.2) 01/04/17 05:02 Plt Count 276 K/mm3 (140-440) 01/04/17 05:02 Lymph % (Auto) 19.5 % (13.4-35.0) 01/04/17 05:02 [place] % (Auto) 8.3 % (0.0-7.3) H 01/04/17 05:02 Eos % (Auto) 2.4 % (0.0-4.3) 01/04/17 05:02 Baso % (Auto) 0.8 % (0.0-1.8) 01/04/17 05:02 Lymph # 1.0 K/mm3 (1.2-5.4) L 01/04/17 05:02 [place] # 0.4 K/mm3 (0.0-0.8) 01/04/17 05:02 Eos # 0.1 K/mm3 (0.0-0.4) 01/04/17 05:02 Baso # 0.0 K/mm3 (0.0-0.1) 01/04/17 05:02 Seg Neutrophils % 69.0 % (40.0-70.0) 01/04/17 05:02 Seg Neutrophils # 3.4 K/mm3 (1.8-7.7) 01/04/17 05:02 Sodium 147 mmol/L (137-145) H 01/06/17 04:58 Potassium 3.3 mmol/L (3.6-5.0) L 01/06/17 04:58 Chloride 110.7 mmol/L (98-107) H 01/06/17 04:58 Carbon Dioxide 23 mmol/L (22-30) 01/06/17 04:58 Anion Gap 17 mmol/L 01/06/17 04:58 BUN 4 mg/dL (9-20) L 01/06/17 04:58 Creatinine 0.6 mg/dL (0.8-1.5) L 01/06/17 04:58 Estimated GFR > 60 ml/min 01/06/17 04:58 BUN/Creatinine Ratio 6.66 % 01/06/17 04:58 Glucose 87 mg/dL (75-100) 01/06/17 04:58 POC Glucose 108 (70-105) H 01/06/17 23:07 Calcium 8.4 mg/dL (8.4-10.2) 01/06/17 04:58 Total Bilirubin 0.2 mg/dL (0.1-1.2) 01/01/17 06:20 AST 15 units/L (5-40) 01/01/17 06:20 ALT 18 units/L (7-56) 01/01/17 06:20 Alkaline Phosphatase 60 units/L (35-129) 01/01/17 06:20 Total Protein 7.4 g/dL (6.3-8.2) 01/01/17 06:20 Albumin 2.6 g/dL (3.9-5) L 01/01/17 06:20 Albumin/Globulin Ratio 0.5 % 01/01/17 06:20
[2017-01-10 14:31] LABS: Eosinophils % (Auto) 2.9 % (0.0-4.3); Hematocrit 32.2 % (35.5-45.6); Hemoglobin 10.4 gm/dl (11.8-15.2); Mean Corpuscular HGB Conc 32 % (32-34); Mean Corpuscular Hemoglobin 30 pg (28-32); Mean Corpuscular Volume 92 fl (84-94); Platelet Count 197 K/mm3 (140-440); Red Cell Distribution Width 16.6 % (13.2-15.2); White Blood Count 5.8 K/mm3 (4.5-11.0)
[2017-01-10 19:19] LABS: Basophils % (Manual) 0 % (0.0-1.8); Blastocytes % (Manual) 0 %
[2017-01-10 19:20] LABS: Anisocytosis 1+; Diff Status Complete; Platelet Estimate Consistent w Auto
[2017-01-11] MEDS: ROBITUSSIN PO SCH ×5 (01:17→15:11)
[2017-01-11] MEDS: HEPARIN SUB-Q SCH ×3 (05:15→23:34)
[2017-01-11] MEDS: NOVOLOG SUB-Q SCH ×3 (05:36→11:30)
[2017-01-11] MEDS: CATAPRES PO SCH ×3 (08:15→23:28)
[2017-01-11] MEDS: ARICEPT PO SCH (10:34)
[2017-01-11] MEDS: K-DUR PO SCH (10:35)
[2017-01-11] MEDS: COLACE PO SCH (10:35)
[2017-01-11] MEDS: FLOMAX PO SCH (10:35)
[2017-01-11] MEDS: ZOLOFT PO SCH (10:35)
[2017-01-11] MEDS: ROCEPHIN/NS 2 GM/100 ML 2 GM/100 ML BAG IV SCH (10:37)
[2017-01-11] MEDS: NACL 0.9% 1000 ML 1,000 ML IV SCH (14:41)
[2017-01-11] MEDS: TENORMIN PO SCH (23:29)
[2017-01-11] MEDS: HCTZ PO SCH (23:32)
[2017-01-12] MEDS: NOVOLOG SUB-Q SCH ×3 (01:57→12:00)
[2017-01-12] MEDS: ROBITUSSIN PO SCH ×2 (01:58→12:57)
[2017-01-12] MEDS: NACL 0.9% 1000 ML 1,000 ML IV SCH (05:00)
--- NOTE | 2017-01-12 06:19 | Discharge Summary ---
Providers - Providers Date of Admission: 12/31/16 23:37 Attending physician: BHAVNA CHAMPAGNE 01/03/17 09:25 Consult to Physician [CONS] Routine Consulting Provider: VIKAS ERICKSON Reason For Exam: right hydronephrosis, nephrostomy tube Place consult to:: Dr. Erickson Notified:: Doctor director of agronomy Phone number called:: Was contact made?: Yes If yes, spoke with:: Dr. Yanez Time called:: 09:45 Comment:: No IR person director of agronomy this weekend. Will be Thursday before seen. 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 Pt treated with supportive care. Urology team consulted as well as Interventional Radiology. Pt taken to OR for Cysto, and Left Stent placement and was taken back to OR for right sided nephrostomy tube placement. Pt found to have signs of infection intraoperatively as per IR. Pt started on oral abx. Pt convalesced well during hospital course with improvement in symptoms. Pt seen and evaluated prior to discharge but no significant new physical exam findings since admission. Pt discharged and instructed to f/u pcp 1wk, and to f/u with IR for reevaluation and nephrostomy tube removal. 35 minutes dedicated to pt discharge and education. Disposition: DC/TX SNF [facility] CERT - Discharge Diagnoses (1) Bilateral hydronephrosis Status: Acute (2) UTI (urinary tract infection) Status: Acute Qualifiers: Urinary tract infection type: U Hematuria presence: H Indwelling urinary catheter type: I Encounter type: E (3) HTN (hypertension) Status: Acute Qualifiers: Hypertension type: H (4) Diabetes Status: Acute Qualifiers: Diabetes mellitus type: D Diabetes mellitus complication status: D Diabetes mellitus complication detail: D Diabetic retinopathy severity: D Proliferative retinopathy type: P Diabetes mellitus macular edema: D Diabetes mellitus tank terminal gauger insulin use: D Laterality: L Chronic kidney disease stage: C (5) Seizure disorder Status: Acute (6) DVT prophylaxis Status: Acute Core Measure Documentation - Palliative Care Palliative Care/ Comfort Measures: Not Applicable - Core Measures Any of the following diagnoses?: none Exam - Constitutional Vitals: Temp Pulse Resp BP Pulse Ox 97.6 F 57 L 20 171/86 96 01/11/17 17:06 01/11/17 23:29 01/11/17 17:06 01/11/17 23:29 01/11/17 17:06 General appearance: Present: no acute distress - EENT Eyes: Present: PERRL ENT: hearing intact, clear oral mucosa - Neck Neck: Present: supple, normal ROM - Respiratory Respiratory effort: normal Respiratory: bilateral: diminished - Cardiovascular Rhythm: regular Heart Sounds: Present: S1 & S2 - Extremities Extremities: no ischemia Peripheral Pulses: within normal limits - Abdominal General gastrointestinal: Present: soft, non-distended - Integumentary Integumentary: Present: clear, dry - Musculoskeletal Musculoskeletal: generalized weakness - Psychiatric Psychiatric: appropriate mood/affect - Neurologic Neurologic: no gait normal Plan Activity: advance as tolerated Follow up with: PRIMARY CARE, [Primary Care Provider] - 3-5 Days Prescriptions: Sulfamethoxazole/Trimethoprim [Bactrim DS TAB] 1 each PO BID #10 tablet
--- NOTE | 2017-01-12 06:25 | Progress Note ---
Assessment and Plan - Patient Problems (1) Bilateral hydronephrosis Current Visit: Yes Status: Acute Plan to address problem: S/P Left Uretic stent placement, S/P R uretic stent placement. Urology consulted , IR consulted. D/C Planning. (2) UTI (urinary tract infection) Current Visit: Yes Status: Acute Qualifiers: Urinary tract infection type: U Hematuria presence: H Indwelling urinary catheter type: I Encounter type: E Plan to address problem: IV abx, ivf, supportive care, repeat cbc, (3) HTN (hypertension) Current Visit: Yes Status: Acute Qualifiers: Hypertension type: H Plan to address problem: Monitor bp q shift, continue current medication. (4) Diabetes Current Visit: Yes Status: Acute Qualifiers: Diabetes mellitus type: D Diabetes mellitus complication status: D Diabetes mellitus complication detail: D Diabetic retinopathy severity: D Proliferative retinopathy type: P Diabetes mellitus macular edema: D Diabetes mellitus nursing home insulin use: D Laterality: L Chronic kidney disease stage: C Plan to address problem: ADA diet, insulin, accu check (5) Seizure disorder Current Visit: Yes Status: Acute Plan to address problem: Continue current therapy, (6) DVT prophylaxis Current Visit: Yes Status: Acute History Interval history: Pt resting in bed, No reported nursing events. Pt denies pain. Pt medically stable overnight. S/P stent placement. D/C planning Hospitalist Physical - Constitutional Vitals: Temp Pulse Resp BP Pulse Ox 97.6 F 57 L 20 171/86 96 01/11/17 17:06 01/11/17 23:29 01/11/17 17:06 01/11/17 23:29 01/11/17 17:06 General appearance: Present: no acute distress - EENT ENT: hearing intact - Neck Neck: Present: supple - Respiratory Respiratory: bilateral: CTA - Cardiovascular Rhythm: regular Heart Sounds: Present: S1 & S2 - Extremities Extremity abnormal: edema Peripheral Pulses: abnormal - Abdominal General gastrointestinal: soft, non-tender, non-distended - Integumentary Integumentary: Present: clear, dry - Psychiatric Psychiatric: appropriate mood/affect, cooperative - Neurologic Neurologic: no gait normal Results - Labs CBC & Chem 7: 01/10/17 13:49 01/06/17 04:58 Labs: Laboratory Last Values WBC 5.8 K/mm3 (4.5-11.0) 01/10/17 13:49 RBC 3.50 M/mm3 (3.65-5.03) L 01/10/17 13:49 Hgb 10.4 gm/dl (11.8-15.2) L 01/10/17 13:49 Hct 32.2 % (35.5-45.6) L 01/10/17 13:49 MCV 92 fl (84-94) 01/10/17 13:49 MCH 30 pg (28-32) 01/10/17 13:49 MCHC 32 % (32-34) 01/10/17 13:49 RDW 16.6 % (13.2-15.2) H 01/10/17 13:49 Plt Count 197 K/mm3 (140-440) 01/10/17 13:49 Lymph % (Auto) 19.5 % (13.4-35.0) 01/04/17 05:02 [place] % (Auto) 6.5 % (0.0-7.3) 01/10/17 13:49 Eos % (Auto) 2.9 % (0.0-4.3) 01/10/17 13:49 Baso % (Auto) 0.8 % (0.0-1.8) 01/04/17 05:02 Lymph # 1.0 K/mm3 (1.2-5.4) L 01/04/17 05:02 [place] # 0.4 K/mm3 (0.0-0.8) 01/10/17 13:49 Eos # 0.2 K/mm3 (0.0-0.4) 01/10/17 13:49 Baso # 0.2 K/mm3 (0.0-0.1) H 01/10/17 13:49 Add Manual Diff Complete 01/10/17 13:49 Total Counted 100 01/10/17 13:49 Seg Neutrophils % 70.4 % (40.0-70.0) H 01/10/17 13:49 Seg Neuts % (Manual) 74.0 % (40.0-70.0) H 01/10/17 13:49 Band Neutrophils % 0 % 01/10/17 13:49 Lymphocytes % (Manual) 18.0 % (13.4-35.0) 01/10/17 13:49 Reactive Lymphs % (Man) 0 % 01/10/17 13:49 Monocytes % (Manual) 5.0 % (0.0-7.3) 01/10/17 13:49 Eosinophils % (Manual) 3.0 % (0.0-4.3) 01/10/17 13:49 Basophils % (Manual) 0 % (0.0-1.8) 01/10/17 13:49 Metamyelocytes % 0 % 01/10/17 13:49 Myelocytes % 0 % 01/10/17 13:49 Promyelocytes % 0 % 01/10/17 13:49 Blast Cells % 0 % 01/10/17 13:49 Nucleated RBC % Not Reportable 01/10/17 13:49 Seg Neutrophils # 4.1 K/mm3 (1.8-7.7) 01/10/17 13:49 Seg Neutrophils # Man 4.3 K/mm3 (1.8-7.7) 01/10/17 13:49 Band Neutrophils # 0.0 K/mm3 01/10/17 13:49 Lymphocytes # (Manual) 1.0 K/mm3 (1.2-5.4) L 01/10/17 13:49 Abs React Lymphs (Man) 0.0 K/mm3 01/10/17 13:49 Monocytes # (Manual) 0.3 K/mm3 (0.0-0.8) 01/10/17 13:49 Eosinophils # (Manual) 0.2 K/mm3 (0.0-0.4) 01/10/17 13:49 Basophils # (Manual) 0.0 K/mm3 (0.0-0.1) 01/10/17 13:49 Metamyelocytes # 0.0 K/mm3 01/10/17 13:49 Myelocytes # 0.0 K/mm3 01/10/17 13:49 Promyelocytes # 0.0 K/mm3 01/10/17 13:49 Blast Cells # 0.0 K/mm3 01/10/17 13:49 WBC Morphology Not Reportable 01/10/17 13:49 Hypersegmented Neuts Not Reportable 01/10/17 13:49 Hyposegmented Neuts Not Reportable 01/10/17 13:49 Hypogranular Neuts Not Reportable 01/10/17 13:49 Smudge Cells Not Reportable 01/10/17 13:49 Toxic Granulation Not Reportable 01/10/17 13:49 Toxic Vacuolation Not Reportable 01/10/17 13:49 Dohle Bodies Not Reportable 01/10/17 13:49 Pelger-Huet Anomaly Not Reportable 01/10/17 13:49 Rupal Rods Not Reportable 01/10/17 13:49 Platelet Estimate Consistent w auto 01/10/17 13:49 Clumped Platelets Not Reportable 01/10/17 13:49 Plt Clumps, EDTA Not Reportable 01/10/17 13:49 Large Platelets Not Reportable 01/10/17 13:49 Giant Platelets Not Reportable 01/10/17 13:49 Platelet Satelliting Not Reportable 01/10/17 13:49 Plt Morphology Comment Not Reportable 01/10/17 13:49 RBC Morphology Not Reportable 01/10/17 13:49 Dimorphic RBCs Not Reportable 01/10/17 13:49 Polychromasia Not Reportable 01/10/17 13:49 Hypochromasia Not Reportable 01/10/17 13:49 Poikilocytosis Not Reportable 01/10/17 13:49 Anisocytosis 1+ 01/10/17 13:49 Microcytosis Not Reportable 01/10/17 13:49 Macrocytosis Not Reportable 01/10/17 13:49 Spherocytes Not Reportable 01/10/17 13:49 Pappenheimer Bodies Not Reportable 01/10/17 13:49 Sickle Cells Not Reportable 01/10/17 13:49 Target Cells Not Reportable 01/10/17 13:49 Tear Drop Cells Not Reportable 01/10/17 13:49 Ovalocytes Not Reportable 01/10/17 13:49 Helmet Cells Not Reportable 01/10/17 13:49 [place] Bodies Not Reportable 01/10/17 13:49 [place] Rings Not Reportable 01/10/17 13:49 [place] Cells Not Reportable 01/10/17 13:49 Bite Cells Not Reportable 01/10/17 13:49 Crenated Cell Not Reportable 01/10/17 13:49 Elliptocytes Not Reportable 01/10/17 13:49 Acanthocytes (Spur) Not Reportable 01/10/17 13:49 Rouleaux Not Reportable 01/10/17 13:49 Hemoglobin C Crystals Not Reportable 01/10/17 13:49 Schistocytes Not Reportable 01/10/17 13:49 Malaria parasites Not Reportable 01/10/17 13:49 Berny Bodies Not Reportable 01/10/17 13:49 Hem Pathologist Commnt No 01/10/17 13:49 Sodium 147 mmol/L (137-145) H 01/06/17 04:58 Potassium 3.3 mmol/L (3.6-5.0) L 01/06/17 04:58 Chloride 110.7 mmol/L (98-107) H 01/06/17 04:58 Carbon Dioxide 23 mmol/L (22-30) 01/06/17 04:58 Anion Gap 17 mmol/L 01/06/17 04:58 BUN 4 mg/dL (9-20) L 01/06/17 04:58 Creatinine 0.6 mg/dL (0.8-1.5) L 01/06/17 04:58 Estimated GFR > 60 ml/min 01/06/17 04:58 BUN/Creatinine Ratio 6.66 % 01/06/17 04:58 Glucose 87 mg/dL (75-100) 01/06/17 04:58 POC Glucose 108 (70-105) H 01/06/17 23:07 Calcium 8.4 mg/dL (8.4-10.2) 01/06/17 04:58 Total Bilirubin 0.2 mg/dL (0.1-1.2) 01/01/17 06:20 AST 15 units/L (5-40) 01/01/17 06:20 ALT 18 units/L (7-56) 01/01/17 06:20 Alkaline Phosphatase 60 units/L (35-129) 01/01/17 06:20 Total Protein 7.4 g/dL (6.3-8.2) 01/01/17 06:20 Albumin 2.6 g/dL (3.9-5) L 01/01/17 06:20 Albumin/Globulin Ratio 0.5 % 01/01/17 06:20
[2017-01-12] MEDS: ZOLOFT PO SCH (11:22)
[2017-01-12] MEDS: ARICEPT PO SCH (11:22)
[2017-01-12] MEDS: COLACE PO SCH (11:22)
[2017-01-12] MEDS: K-DUR PO SCH (11:22)
[2017-01-12] MEDS: FLOMAX PO SCH (11:23)
[2017-01-12] MEDS: HCTZ PO SCH (11:23)
[2017-01-12] MEDS: CATAPRES PO SCH (11:23)
[2017-01-12 14:47] VITALS: BP 148/74
== END 2017-01-12 14:20 | DRG 659 ==
LOC: ED 12:49 → 2B-SURG 23:37
PROVIDERS: ADMIT Internal Medicine; ATTEND Internal Medicine
PROC: 0T9330Z Drainage of Right Kidney Pelvis with Drainage Device, Percutaneous Approach (ICD-10-PCS; principal; 2017-01-04)
PROC: 0T25X0Z Change Drainage Device in Kidney, External Approach (ICD-10-PCS; 2017-01-08)
PROC: 0T763DZ Dilation of Right Ureter with Intraluminal Device, Percutaneous Approach (ICD-10-PCS; 2017-01-08)
PROC: BT111ZZ Fluoroscopy of Right Kidney using Low Osmolar Contrast (ICD-10-PCS; 2017-01-08)
DX: N13.1 Hydronephrosis with ureteral stricture, not elsewhere classified (principal); E43 Unspecified severe protein-calorie malnutrition; N39.0 Urinary tract infection, site not specified; I10 Essential (primary) hypertension; G40.909 Epilepsy, unspecified, not intractable, without status epilepticus; F03.90 Unspecified dementia, unspecified severity, without behavioral disturbance, psychotic disturbance, mood disturbance, and anxiety; E11.9 Type 2 diabetes mellitus without complications; N40.0 Benign prostatic hyperplasia without lower urinary tract symptoms; G80.9 Cerebral palsy, unspecified; F41.9 Anxiety disorder, unspecified; N21.0 Calculus in bladder; Z68.29 Body mass index [BMI] 29.0-29.9, adult; Z86.73 Personal history of transient ischemic attack (TIA), and cerebral infarction without residual deficits
CPT/HCPCS: 36415; 50432; 50435; 50693; 74176; 74420; 76857; 80048; 80053; 82962; 85007; 85025; 87076; 87086; 87116; 87186; 96361; 96374; C1726; C1729; C1751; C1758; C1769; C2617; J0696; J1100; J1170; J1644; J1650; J1956; J2250; J2405; J2704; J3010; J7030; J7040; J7042; J7050; Q9967

== ENCOUNTER 2017-01-19 10:40 | Day surgery (SDC) | payer MEDICARE ==
[~2017-01-19 10:40] MED LIST: ANCEF/STERILE WATER 2 GM/20 ML 2 GM/20 ML SYRINGE IV NR; NACL 0.9% 1000 ML 1,000 ML IV SCH
[2017-01-19 11:40] VITALS: BP 111/73
[2017-01-19] MEDS ORDERED: XYLOCAINE 1%/ EPI 1:100,000 INFILTRATI ONE (13:54)
[2017-01-19] MEDS ORDERED: ANCEF/STERILE WATER 2 GM/20 ML 0 GM/0 ML SYRINGE IV ONE (13:54)
[2017-01-19] MEDS ORDERED: VERSED ONE (13:54)
[2017-01-19] MEDS ORDERED: NACL 0.9% 500 ML 0 ML ONE (13:54)
[2017-01-19] MEDS ORDERED: SUBLIMAZE ONE (13:54)
--- NOTE | 2017-01-19 17:07 | Short Stay Summary ---
Short Stay Documentation Date of service: 01/19/17 - History Principal diagnosis: hydronephrosis right Past Medical History: ESRD Past Surgical History: Other (percutaneous lithotripsy) Social history: single - Allergies and Medications Current Medications: Allergies No Known Allergies Allergy (Unverified 03/19/16 21:13) Home Medications Medication Instructions Recorded Confirmed Last Taken Type Aspirin [Aspirin TAB] 325 mg PO QDAY 03/19/16 01/19/17 01/18/17 History Atenolol [Tenormin] 50 mg PO DAILY 03/19/16 01/19/17 01/18/17 History Divalproex [Antonio ESTEBAN] 500 mg PO DAILY 03/19/16 01/19/17 01/18/17 History Docusate Sodium [Move It Along] 100 mg PO DAILY 03/19/16 01/19/17 01/18/17 History Donepezil [Aricept] 10 mg PO DAILY 03/19/16 01/19/17 01/18/17 History Hydrochlorothiazide [Hctz] 12.5 mg PO QDAY 03/19/16 01/19/17 01/18/17 History Multivitamin Tab W-MINERAL 1 each PO QD 03/19/16 01/19/17 01/18/17 History [Multiple Vitamin/Mineral (Theragran M)] Potassium Chloride [K-Tab ER] 10 meq PO DAILY 03/19/16 01/19/17 01/18/17 History Nitro Dur 0.2 mg TRANSDERMA DAILY 04/03/16 01/19/17 01/18/17 History cloNIDine 0.2 mg PO TID 04/03/16 01/19/17 01/18/17 History metFORMIN 1,000 mg PO BID 04/03/16 01/19/17 01/18/17 History Divalproex [Antonio ESTEBAN] 750 mg PO QHS 12/31/16 01/19/17 01/18/17 History Nitrofurantoin [place]/M-Cryst 100 mg PO DAILY 12/31/16 01/19/17 01/18/17 History [Macrobid CAP] Sertraline [Zoloft] 100 mg PO QDAY 12/31/16 01/19/17 01/18/17 History Tamsulosin [Flomax] 0.4 mg PO QDAY 03/06/1101/19/17 01/18/17 History guaiFENesin [Robitussin] 200 mg PO Q6HR 12/31/16 01/19/17 01/18/17 History Sulfamethoxazole/Trimethoprim 1 each PO BID #10 tablet 01/12/17 01/19/17 Rx [Bactrim DS TAB] Active Medications Cefazolin Sodium (Ancef/Sterile Water 2 Gm/20 Ml) 2 gm in 20 mls @ 80 mls/hr IV PREOP NR PRN Reason: Protocol Stop: 01/19/17 23:00 Sodium Chloride (Nacl 0.9% 1000 Ml) 1,000 mls @ 42 mls/hr IV DIRECT BLANCA - Physical exam General appearance: no acute distress Integumentary: no rash HEENT: Atraumatic Lungs: Normal air movement Breasts: deferred Heart: Regular rate Gastrointestinal: normal Male Genitourinary: deferred Rectal Exam: deferred - Brief post op/procedure progress note Date of procedure: 01/19/17 Pre-op diagnosis: right hydronephrosis Post-op diagnosis: same Procedure: EXAM: FLUOROSCOPIC GUIDED EVALUATION OF NEPHROSTOMY TUBE AND NEPHROSTOMY TUBE REMOVAL CLINICAL INDICATION: PATIENT WITH NEPHROSTOMY TUBE AND INDWELLING URETERAL STENT , HISTORY OF PROXIMAL URETERAL INJURY DATE: 01/19/2017 PROCEDURE: Following an expiration of the risks, benefits and alternatives; written informed consent was obtained. The patient was brought to the angiographic suite and placed in prone position on the examination table. Initial fluoroscopic images demonstrated appropriate positioning of patient's indwelling nephrostomy tube. The catheter tube was prepped sterilely. Contrast was injected through the patient's indwelling nephrostomy tube. There is prompt opacification of a decompressed renal collecting system. There is prompt transit of contrast through and indwelling renal stent. No evidence of extravasation of contrast to suggest ureteral injury. Under fluoroscopic guidance, the indwelling catheter tube was cut and then removed intact. There was no interference from the proximal end of ureteral stent. The puncture site was dressed with 4 x 4 and Tegaderm. The patient tolerated the procedure well. There were no immediate post procedure palpitations. Continuous cardiopulmonary monitoring was utilized. No conscious sedation was administered. IMPRESSION: 1) Fluoroscopic guided evaluation of nephrostomy tube and removal Short Stay Discharge Plan Follow up with: PRIMARY CAREMD [Primary Care Provider] - 7 Days
== END 2017-01-19 10:41 | disposition home or self-care (01) ==
LOC: OPU 10:40
PROVIDERS: ATTEND Radiology Diagnostic Radiology
DX: N13.30 Unspecified hydronephrosis (principal); N18.6 End stage renal disease
CPT/HCPCS: 50389; J2250; J3010; J0690; J7040

== ENCOUNTER 2017-02-12 15:12 | Emergency (ER) | payer MEDICARE, MEDICAID ==
[2017-02-12 16:28] LABS: Amylase 123 units/L (27-131); Anion Gap 19 mmol/L; Blood Urea Nitrogen 21 mg/dL (9-20); Calcium 8.7 mg/dL (8.4-10.2); Carbon Dioxide 23 mmol/L (22-30); Chloride 97.6 mmol/L (98-107); Glucose 103 mg/dL (75-100); Lipase 10 units/L (13-60); Potassium 3.9 mmol/L (3.6-5.0); Sodium 136 mmol/L (137-145)
[2017-02-12 16:29] LABS: Basophils % (Auto) 0.3 % (0.0-1.8); Eosinophils % (Auto) 0.9 % (0.0-4.3); Hematocrit 42.1 % (35.5-45.6); Hemoglobin 13.9 gm/dl (11.8-15.2); Mean Corpuscular HGB Conc 33 % (32-34); Mean Corpuscular Hemoglobin 31 pg (28-32); Mean Corpuscular Volume 93 fl (84-94); Platelet Count 190 K/mm3 (140-440); Red Blood Count 4.54 M/mm3 (3.65-5.03); Red Cell Distribution Width 16.3 % (13.2-15.2); White Blood Count 6.9 K/mm3 (4.5-11.0)
[2017-02-12 17:00] LABS: Bilirubin,Urine NEG (Negative); Blood,Urine NEG (Negative); Ketones,Urine NEG (Negative); Leukocyte Esterase,Urine NEG (Negative); Nitrite,Urine NEG (Negative); Protein,Urine <15 mg/dL mg/dL (Negative); Urobilinogen,Urine < 2.0 mg/dL (<2.0)
[2017-02-12] MEDS ORDERED: NACL 0.9% 1000 ML 1,000 ML IV ONE (17:10)
[2017-02-12] MEDS ORDERED: ZOFRAN IV ONE (17:11)
[2017-02-12 17:13] LABS: RBC,Urine < 1.0 /HPF (0.0-6.0); WBC,Urine < 1.0 /HPF (0.0-6.0)
--- NOTE | 2017-02-12 17:33 | Emergency Department Report ---
HPI - General Chief Complaint: Nausea/Vomiting/Diarrhea Time Seen by Provider: 02/12/17 16:44 - HPI HPI: The patient is a 66-year-old male with a history of cerebral palsy, paraplegia, right eye blindness, and mild dementia, who presents for evaluation of vomiting. The patient reports 2-3 days of recurrent vomiting, severe when present, exacerbated with eating or drinking and with lying flat, improved with sitting up. He also has experienced constipation. The patient denies fever, chills, night sweats, hematemesis, diarrhea, blood in the stool, dark tarry stool, dysuria, hematuria, flank pain, genital discharge, inability to pass flatus. 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) Additional medical history: CEREBAL PALSY, PARAPLEGIA, APHAKIA, LOW VISION, DYSPHAGIA, CONSTIPATION, - Social History Smoking Status: Never Smoker Substance Use Type: None - Medications Home Medications: Home Medications Medication Instructions Recorded Confirmed Last Taken Type Aspirin [Aspirin TAB] 325 mg PO QDAY 03/19/16 02/12/17 01/18/17 History Atenolol [Tenormin] 50 mg PO DAILY 03/19/16 02/12/17 01/18/17 History Divalproex [Antonio ESTEBAN] 500 mg PO DAILY 03/19/16 02/12/17 01/18/17 History Docusate Sodium [Move It Along] 100 mg PO DAILY 03/19/16 02/12/17 01/18/17 History Donepezil [Aricept] 10 mg PO DAILY 03/19/16 02/12/17 01/18/17 History Hydrochlorothiazide [Hctz] 12.5 mg PO QDAY 03/19/16 02/12/17 01/18/17 History Multivitamin Tab W-MINERAL 1 each PO QD 03/19/16 02/12/17 01/18/17 History [Multiple Vitamin/Mineral (Theragran M)] Potassium Chloride [K-Tab ER] 20 meq PO DAILY 03/19/16 02/12/17 01/18/17 History Nitro Dur 0.2 mg TRANSDERMA DAILY 04/03/16 02/12/17 01/18/17 History cloNIDine 0.2 mg PO TID 04/03/16 02/12/17 01/18/17 History metFORMIN 1,000 mg PO BID 04/03/16 02/12/17 01/18/[address] [DepaKOTE DR] 750 mg PO QHS 12/31/16 02/12/17 01/18/17 History Nitrofurantoin [place]/M-Cryst 100 mg PO DAILY 12/31/16 02/12/17 01/18/17 History [Macrobid CAP] Sertraline [Zoloft] 100 mg PO QDAY 12/31/16 02/12/17 01/18/17 History Tamsulosin [Flomax] 0.4 mg PO QDAY 12/31/16 02/12/17 01/18/17 History Divalproex ER [DepaKOTE ER] 750 mg PO QHS 02/12/17 02/12/17 Unknown History Divalproex ER [Depakote ER] 1 tab PO DAILY 02/12/17 02/12/17 Unknown History Ondansetron [Zofran Odt] 4 mg PO Q4HR PRN #20 tab.rapdis 02/12/17 Unknown Rx ED Review of Systems ROS: Stated complaint: PROJECTILE VOMITING Other details as noted in HPI Constitutional: denies: fever ENT: denies: throat or neck pain Respiratory: denies: cough, shortness of breath Cardiovascular: denies: chest pain Endocrine: denies unexplained weight loss or gain Gastrointestinal: denies: abdominal pain reports vomiting, nausea Genitourinary: denies: dysuria Musculoskeletal: denies: leg swelling Skin: denies: rash Neurological: denies: headache Hematological/Lymphatic: denies: easy bleeding or easy bruising Psych: denies sadness or hopelessness Physical Exam - Physical Exam Vital Signs: Vital Signs 02/12/17 02/12/17 02/12/17 15:39 16:13 16:21 Temperature 98.8 F Pulse Rate 64 65 63 Respiratory 18 9 L 17 Rate Blood Pressure 97/59 121/67 O2 Sat by Pulse 96 99 99 Oximetry 02/12/17 02/12/17 16:30 17:01 Temperature Pulse Rate 63 Respiratory 17 18 Rate Blood Pressure O2 Sat by Pulse 96 96 Oximetry Physical Exam: General: well-nourished, well-developed, no acute distress Head: Normocephalic, atraumatic Eyes: normal sclera ENT: Mucous membranes are pale and dry Neck: trachea midline, neck supple, No neck stiffness, no cervical adenopathy Respiratory: Breath sounds equal bilaterally, no wheezing, rales, or rhonchi Cardio: S1 and S2 present, no murmurs, rubs, gallops, capillary refill is delayed Abdomen: Normoactive bowel sounds, soft abdomen, epigastric and LUQ tenderness present, no rigidity, no guarding or rebound tenderness Chest WALL/Back: No tenderness to palpation of the chest wall, no CVA tenderness with percussion Musc: Paralysis of both legs present Skin: No rash Neuro: no facial drooping, normal speech Psych: Normal affect ED Course Vital Signs 02/12/17 02/12/17 02/12/17 15:39 16:13 16:21 Temperature 98.8 F Pulse Rate 64 65 63 Respiratory 18 9 L 17 Rate Blood Pressure 97/59 121/67 O2 Sat by Pulse 96 99 99 Oximetry 02/12/17 02/12/17 16:30 17:01 Temperature Pulse Rate 63 Respiratory 17 18 Rate Blood Pressure O2 Sat by Pulse 96 96 Oximetry ED Medical Decision Making - Lab Data Result diagrams: 02/12/17 15:57 02/12/17 15:57 - Medical Decision Making The patient was seen and examined by myself. The patient is placed on a quality assurance monitor chassis and continuous pulse ox. On initial evaluation, the patient was found to be in no distress. Evaluation orders are placed. IV access is established and the patient is given 1 L normal saline fluid bolus for treatment of dehydration, and Zofran for nausea. Patient declines pain medicine. Lab results were non-concerning including WBC, hemoglobin, hematocrit , electrolytes, renal function, LFTs, lipase. CT scan abdomen and pelvis is negative for bowel obstruction, appendicitis, cholecystitis, bowel perforation, or other emergent intra-abdominal disease process. The patient was reevaluated and reported that their symptoms were markedly improved. The patient is given a by mouth challenge which she tolerated without vomiting. The patient has been monitored in the emergency department for greater than 2 hours without any episodes of vomiting. The patient is stable for discharge with outpatient follow-up. The patient is given follow-up and return instructions. The patient expressed understanding and agreed with the plan. The patient is discharged in stable condition. Critical care attestation.: If time is entered above; I have spent that time in minutes in the direct care of this critically ill patient, excluding procedure time. ED Disposition Clinical Impression: Nausea and vomiting in adult, Dehydration, Abdominal pain, acute, epigastric Hydronephrosis Qualifiers: Hydronephrosis type: unspecified Qualified Code(s): N13.30 - Unspecified hydronephrosis Disposition: DISCHARGED TO HOME OR SELFCARE Is pt being admited?: No Does the pt Need Aspirin: No Condition: Stable Instructions: Vomiting in Children (ED), Acute Nausea and Vomiting (ED), Chronic Dysphagia (ED) Prescriptions: Ondansetron [Zofran Odt] 4 mg PO Q4HR PRN #20 tab.rapdis PRN Reason: Vomiting Referrals: PRIMARY CARE, [Primary Care Provider] - 3-5 Days Time of Disposition: 21:20
--- NOTE | 2017-02-12 20:33 | Cat Scan Report ---
FINAL REPORT EXAM: CT ABDOMEN PELVIS W CON HISTORY: abdominal pain TECHNIQUE: CT abdomen and pelvis with oral and intravenous contrast PRIORS: Comparison is dated December 31, 2016 FINDINGS: Mild atelectasis noted at the lung bases And within the right lobe of the liver there is a nonenhancing focus 1.8 centimeters unchanged from prior exam most consistent with a cyst. Otherwise no focal abnormality identified within the liver parenchyma. Spleen is normal in size and attenuation No peripancreatic inflammatory changes are observed. Again identified is a large cyst upper pole right kidney 6.9 centimeters there is adjacent staghorn calculus 1.2 centimeters. There is been interval placement of ureteral stent proximal end within the ureteral pelvic junction distal end within the urinary bladder. There is moderate right hydronephrosis There is mild left hydronephrosis. Numerous small low-density foci left kidney too small to further characterize probably cystic the air has been placement of a left ureteral stent. Proximal end at the ureteropelvic junction distal end within the urinary bladder Extensive bridging vertebral osteophytes are noted lumbar spine. There is bony deformity noted lower right hemipelvis likely reflecting heterotopic calcification superior aspect of the hip. No evidence for significant colonic or small bowel distention. There is a large amount fecal material noted within the rectum. Brody is present within the urinary bladder which is decompressed IMPRESSION: Bilateral ureteral stents. Moderate hydronephrosis more prominent on the right than on the left Upper pole right renal staghorn calculus Renal cysts Brody in the urinary bladder other incidental findings as noted above
[2017-02-13 01:41] VITALS: BP 114/59
== END 2017-02-13 01:46 | disposition home or self-care (01) ==
LOC: ED 15:12
DX: E86.0 Dehydration (principal); N13.30 Unspecified hydronephrosis; R11.2 Nausea with vomiting, unspecified; R10.13 Epigastric pain; I10 Essential (primary) hypertension; I25.2 Old myocardial infarction; E11.9 Type 2 diabetes mellitus without complications; F32.9 Major depressive disorder, single episode, unspecified; Z79.82 Long term (current) use of aspirin
CPT/HCPCS: 36415; 51702; 74177; 80048; 81001; 82150; 83690; 85025; 96361; 96374; 99285; J2405; J7030; Q9967

== ENCOUNTER 2017-04-29 06:01 | Day surgery (SDC) | payer MEDICARE ==
[2017-04-29] MEDS ORDERED: NACL BACTERIOSTATIC INFILTRATI ONE (06:32)
[2017-04-29 07:03] LABS: Basophils % (Auto) 0.3 % (0.0-1.8); Eosinophils % (Auto) 1.2 % (0.0-4.3); Hematocrit 31.4 % (35.5-45.6); Hemoglobin 10.1 gm/dl (11.8-15.2); Mean Corpuscular HGB Conc 32 % (32-34); Mean Corpuscular Hemoglobin 29 pg (28-32); Mean Corpuscular Volume 90 fl (84-94); Platelet Count 240 K/mm3 (140-440); Red Cell Distribution Width 16.4 % (13.2-15.2); White Blood Count 7.6 K/mm3 (4.5-11.0)
[2017-04-29] MEDS ORDERED: ROCEPHIN/NS 1 GM/50 ML 1 GM/50 ML BAG IV ONE (07:24)
[2017-04-29] MEDS ORDERED: DILAUDID IV PRN (07:30)
[2017-04-29 07:32] LABS: Albumin 3.1 g/dL (3.9-5); Albumin/Globulin Ratio 0.5 %; Alkaline Phosphatase 55 units/L (35-129); Anion Gap 19 mmol/L; BUN/Creatinine Ratio 27.14; Blood Urea Nitrogen 19 mg/dL (9-20); Calcium 8.9 mg/dL (8.4-10.2); Carbon Dioxide 26 mmol/L (22-30); Chloride 99.5 mmol/L (98-107); Glucose 86 mg/dL (75-100); Potassium 4.3 mmol/L (3.6-5.0); Sodium 140 mmol/L (137-145); Total Protein 8.9 g/dL (6.3-8.2)
[2017-04-29 07:33] LABS: Alanine Aminotransferase < 5 units/L (7-56)
--- NOTE | 2017-04-29 07:34 | Anesthesia Consultation ---
Anesthesia Consult and Med Hx Date of service: 04/29/17 - Airway Anesthetic Teeth Evaluation: Good ROM Head & Neck: Adequate Mental/Hyoid Distance: Adequate Mallampati Class: Class II Intubation Access Assessment: Probably Good - Pulmonary Exam CTA: Yes - Cardiac Exam Cardiac Exam: RRR - Pre-Operative Health Status ASA Pre-Surgery Classification: ASA3 Proposed Anesthetic Plan: General - Pulmonary Hx Smoking: No Hx Sleep Apnea: No (NARINDER PRE SCREEN HIGH RISK) - Cardiovascular System Hx Hypertension: Yes (EF 55-60%) - Central Nervous System Hx Neuromuscular Disorder: Yes (cerebral palsy, paraplegia bilateral legs, severe contractures) Hx Seizures: Yes CVA: Yes (?) Hx Psychiatric Problems: Yes (anxiety, combative, uncooperative if agitated/ nervous, poss dementia) - Gastrointestinal Hx Gastroesophageal Reflux Disease: No - Endocrine Hx Renal Disease: No (stones, renal stents 2/2 hydronephrosis) Hx Non-Insulin Dependent Diabetes: Yes - Hematic Hx Anemia: No Hx Sickle Cell Disease: No - Other Systems Hx Alcohol Use: No Hx Substance Use: No Hx Cancer: No - Additional Comments Anesthesia Medical History Comments: HISTORY FROM CHART. PATIENT UNABLE TO GIVE HISTORY. CARDIAC CLEARANCE ON CHART.
--- NOTE | 2017-04-29 07:34 | Anesthesia Day of Surgery ---
Anesthesia Day of Surgery - Day of Surgery Patient Examined: Yes Patient H&P Reviewed: Yes Patient is NPO: Yes Cardiac Clearance: Yes
[2017-04-29] MEDS ORDERED: PEPCID IV NR (08:00)
[2017-04-29] MEDS ORDERED: NACL 0.9% 1000 ML 1,000 ML IV SCH (08:00)
[2017-04-29] MEDS ORDERED: OMNIPAQUE 300 MG/50 ML (CATH LAB) IV ONE (08:04)
[2017-04-29] MEDS ORDERED: WATER FOR IRRIG STERILE IR ONE ×2 (08:05)
[2017-04-29] MEDS ORDERED: DIPRIVAN 10 MG/ML IV ONE (08:46)
[2017-04-29] MEDS ORDERED: XYLOCAINE MPF 2% ONE (08:46)
[2017-04-29] MEDS ORDERED: SUBLIMAZE ONE (08:46)
[2017-04-29] MEDS ORDERED: ZOFRAN IV PRN (09:00)
--- NOTE | 2017-04-29 09:03 | Short Stay Summary ---
Short Stay Documentation Date of service: 04/29/17 - History H&P: obtained from office - Allergies and Medications Current Medications: Allergies No Known Allergies Allergy (Unverified 03/19/16 21:13) Home Medications Medication Instructions Recorded Confirmed Last Taken Type Aspirin [Aspirin TAB] 325 mg PO QDAY 03/19/16 04/29/17 04/22/17 History Atenolol [Tenormin] 50 mg PO DAILY 03/19/16 04/29/17 04/28/17 History Docusate Sodium [Move It Along] 100 mg PO DAILY 03/19/16 04/29/17 04/28/17 History Donepezil [Aricept] 10 mg PO DAILY 03/19/16 04/29/17 04/28/17 History Hydrochlorothiazide [Hctz] 12.5 mg PO QDAY 03/19/16 04/29/17 04/28/17 History Multivitamin Tab W-MINERAL 1 each PO QD 03/19/16 04/29/17 04/28/17 History [Multiple Vitamin/Mineral (Theragran M)] Potassium Chloride [K-Tab ER] 20 meq PO DAILY 03/19/16 04/29/17 04/28/17 History Nitro Dur 0.2 mg TRANSDERMA QHS 04/03/16 04/29/17 04/28/17 History cloNIDine 0.2 mg PO TID 04/03/16 04/29/17 04/28/17 History metFORMIN 1,000 mg PO BID 04/03/16 04/29/17 04/28/17 History Sertraline [Zoloft] 100 mg PO QDAY 12/31/16 04/29/17 04/28/17 History Tamsulosin [Flomax] 0.4 mg PO QDAY 12/31/16 04/29/17 04/28/17 History Divalproex ER [DepaKOTE ER] 750 mg PO QHS 02/12/17 04/29/17 04/28/17 History Divalproex ER [Depakote ER] 500 mg PO QAM 02/12/17 04/29/17 04/28/17 History Ondansetron [Zofran Odt] 4 mg PO Q4HR PRN #20 tab.rapdis 02/12/17 04/29/17 Unknown Rx Active Medications Hydromorphone HCl (Dilaudid) 0.25 mg IV Q10MIN PRN PRN Reason: Pain, Moderate (4-6) Stop: 04/29/17 15:00 Sodium Chloride (Nacl 0.9% 1000 Ml) 1,000 mls @ 75 mls/hr IV DIRECT BLANCA Last Admin: 04/29/17 07:59 Dose: 75 mls/hr - Brief post op/procedure progress note Date of procedure: 04/29/17 Pre-op diagnosis: brenden aysha stones, brenden uret stones, stents Post-op diagnosis: same Anesthesia: EVINA Surgeon: JOSETTE EDWARDS Estimated blood loss: minimal Condition: stable - Hospital course Hospital course: or pacu home - Disposition Condition at discharge: Good Disposition: DC-01 TO HOME OR SELFCARE Short Stay Discharge Plan Activity: advance as tolerated Diet: advance as tolerated Follow up with: JOSETTE EDWARDS MD [Staff Physician] - 7 Days
[2017-04-29] MEDS ORDERED: DECADRON ONE (09:09)
[2017-04-29] MEDS ORDERED: ZOFRAN ONE (09:09)
[2017-04-29 13:09] VITALS: BP 140/80
--- NOTE | 2017-04-29 15:37 | Fluoroscopy Report ---
Retrograde pyelogram: The initial images demonstrate bilateral internal stents. The left stent was removed. A ureteroscope was introduced with passage of a wire into the renal collecting system. Injection of contrast demonstrates unremarkable mid and proximal ureter as well as intrarenal collecting system. The collecting system and may be slightly distended. Following removal of the right internal stent a ureteroscope also was passed with passage of wires into the collecting system. Injection of contrast demonstrated a couple of questionable filling defect in the renal pelvis. A right internal stent was left in place but no stent placed on the left.
--- NOTE | 2017-05-18 04:49 | Operative Report ---
PREOPERATIVE DIAGNOSES: Bilateral renal stones, bilateral ureteral stones, bilateral stents. POSTOPERATIVE DIAGNOSES: Bilateral renal stones, bilateral ureteral stones, bilateral stents. ANESTHESIA: General. SURGEON: Juan Adams MD. ESTIMATED BLOOD LOSS: Minimal. CONDITION: Stable. FINDINGS: No left or right ureteral stone. CLINICAL INDICATIONS: The patient counseled RCBA, antibiotics, SCDs. The patient was found to have large stones in the right and left ureter on CT had stents placed. This was extremely difficult in the past due to the patient's mental disability and severe contractures limiting access to the pelvis, urethra, bladder and ureters with poor angles making this an extremely complicated procedure. We were not able to place a stent on the right side, had antegrade stent and left retrograde stent, was scheduled for this staged procedure to see if there were residual stones or they passed due to the previous CT with large bilateral ureteral and renal stone. Discussing with the family, they only want to take care of the ureteral stones at this point and possibly attempting both sides. DESCRIPTION OF PROCEDURE: The patient was transferred to the OR suite in supine position, anesthesia, dorsal lithotomy position as best as possible due to severe contractures. At this point, once again every step was difficult due to contracture, unable to access. The scope was passed, we inspected the left distal J. A wire was passed up to left distal J. We were able to pass this ureteroscope, after this the stent was removed up to the left and distal up towards the left UPJ and then the ureteroscope was slowly brought down. There were no ureteral stones, no significant trauma to the ureter. It was elected due to the patient's difficulty history and following up in other condition and that there was no significant trauma and the stent had been a while to leave the left side without a stent. The right side, which was even harder to access and had to have antegrade stent in the past, a wire was passed adjacent to the right stent. Stent grasped, pulled out intact. Rigid ureteroscope was passed. This was very difficult due to contractures and multiple manipulations and assistance with additional wires, we were able to pass the scope up to the left UPJ and no significant stones were identified. The scope was slowly withdrawn. Contrast injected. Wire replaced. A 6-Namibian double-J stent was passed over the wire under direct and fluoroscopic visualization, good proximal and distal J. This was staged for future removal over the right stent. Scope was slowly withdrawn. There were no tumors on inspection of the bladder. Scope had been withdrawn. Brody catheter inserted. The patient awakened and transferred to PACU in good and stable condition. JOB# [id number] ATS/NTS
== END 2017-04-29 12:50 | disposition home or self-care (01) ==
LOC: OR 06:01
PROVIDERS: ATTEND Urology
DX: N20.2 Calculus of kidney with calculus of ureter (principal); N32.89 Other specified disorders of bladder; I10 Essential (primary) hypertension; F41.9 Anxiety disorder, unspecified; E11.9 Type 2 diabetes mellitus without complications; F03.90 Unspecified dementia, unspecified severity, without behavioral disturbance, psychotic disturbance, mood disturbance, and anxiety; Z86.51 Personal history of combat and operational stress reaction; Z79.899 Other long term (current) drug therapy; Z79.84 Long term (current) use of oral hypoglycemic drugs
CPT/HCPCS: 36415; 52332; 74420; 80053; 82962; 85025; A4217; C1726; C1758; C1769; C2617; J0696; J1100; J1170; J2405; J2704; J3010; J7030; Q9967

== ENCOUNTER 2017-06-30 10:48 | Outpatient (CLI) | payer MEDICARE ==
--- NOTE | 2017-06-30 13:24 | Ultrasound Report ---
ULTRASOUND RENAL BILATERAL HISTORY: Obstructive and reflux uropathy. TECHNIQUE: transabdominal ultrasound with color Doppler interrogation. FINDINGS: The right kidney measures 12.3 x 6.8 x 6.9cm. Right renal cortex: 2.0cm. The left kidney measures 11.2 x 6.0 x 5.8cm. Left renal cortex: 2.0cm. A 4.2 x 5.6 cm cyst at the superior pole of the right kidney is identified. No left renal cysts. No evidence for renal mass or hydronephrosis. Bilateral calyceal stones are again suspected. The bladder is empty. IMPRESSION: Right hydronephrosis has resolved since 12/12/16. No evidence for hydronephrosis. Bilateral nonobstructing renal stones.
== END 2017-06-30 10:49 | disposition home or self-care (01) ==
LOC: US 10:48
PROVIDERS: ATTEND Urology
DX: N20.0 Calculus of kidney (principal); N13.9 Obstructive and reflux uropathy, unspecified; N28.1 Cyst of kidney, acquired; I11.0 Hypertensive heart disease with heart failure; I50.9 Heart failure, unspecified; E11.9 Type 2 diabetes mellitus without complications; F41.9 Anxiety disorder, unspecified; Z87.891 Personal history of nicotine dependence
CPT/HCPCS: 76770

== ENCOUNTER 2017-09-24 09:16 | Outpatient (CLI) | payer MEDICARE ==
--- NOTE | 2017-09-24 11:08 | XRay Report ---
SUPINE KUB: History: Calculus of kidney. Limited exam with poor positioning of the patient. The bowel gas pattern is unremarkable. There are no obvious pathologic calcifications. There appears to be a Brody catheter in the bladder. IMPRESSION: Limited exam. No abnormality identified.
--- NOTE | 2017-09-24 12:29 | Ultrasound Report ---
ULTRASOUND RENAL BILATERAL HISTORY: Calculus of kidney. TECHNIQUE: transabdominal ultrasound with color Doppler interrogation. FINDINGS: The right kidney measures 12.6cm. Right renal cortex: 1.7cm. The left kidney measures 11.0cm. Left renal cortex: 1.8cm. Both kidneys demonstrate mild increased cortical echotexture consistent with medical renal disease. There are a few bilateral simple renal cysts. The largest cyst measures 5.3 cm near the superior pole of the right kidney. Bilateral renal calyceal stones are identified. There appear to be a few punctate calcifications in the inferior right kidney. There are 2 calyceal stones in the superior left kidney measuring 2 mm and 4 mm. No evidence for hydronephrosis. No hypervascular mass or perinephric fluid. The bladder is decompressed with a Brody catheter. IMPRESSION: Slightly echogenic kidneys consistent with medical renal disease. Bilateral simple appearing renal cysts. Bilateral nonobstructing calyceal stones as described.
== END 2017-09-24 09:17 | disposition home or self-care (01) ==
LOC: US 09:16
PROVIDERS: ATTEND Urology
DX: N20.0 Calculus of kidney (principal); N28.1 Cyst of kidney, acquired; E11.65 Type 2 diabetes mellitus with hyperglycemia; I10 Essential (primary) hypertension; G80.8 Other cerebral palsy; K59.00 Constipation, unspecified; N13.9 Obstructive and reflux uropathy, unspecified; R56.9 Unspecified convulsions; F32.0 Major depressive disorder, single episode, mild; H27.03 Aphakia, bilateral; I69.991 Dysphagia following unspecified cerebrovascular disease; E56.9 Vitamin deficiency, unspecified; F01.51 Vascular dementia, unspecified severity, with behavioral disturbance; R33.9 Retention of urine, unspecified
CPT/HCPCS: 74000; 76770

== ENCOUNTER 2018-02-16 15:39 | Inpatient (IN) | payer MEDICAID, MEDICARE ==
[2018-02-16] MEDS ORDERED: NACL 0.9% 1000 ML IV ONE (17:41)
[2018-02-16 18:04] LABS: Basophils % (Auto) 0.1 % (0.0-1.8); Eosinophils % (Auto) 0.2 % (0.0-4.3); Hematocrit 32.6 % (35.5-45.6); Hemoglobin 11.1 gm/dl (11.8-15.2); Lymphocytes # (Auto) 0.7 K/mm3 (1.2-5.4); Lymphocytes % (Auto) 3.8 % (13.4-35.0); Mean Corpuscular HGB Conc 34 % (32-34); Mean Corpuscular Hemoglobin 31 pg (28-32); Mean Corpuscular Volume 90 fl (84-94); Monocytes # (Auto) 1.2 K/mm3 (0.0-0.8); Monocytes % (Auto) 6.2 % (0.0-7.3); Platelet Count 161 K/mm3 (140-440); Red Blood Count 3.61 M/mm3 (3.65-5.03); Red Cell Distribution Width 15.5 % (13.2-15.2)
[2018-02-16 18:10] LABS: INR 1.2 (0.87-1.13)
[2018-02-16 18:15] LABS: Alanine Aminotransferase 6 units/L (7-56); Albumin 2.8 g/dL (3.9-5); BUN/Creatinine Ratio 40; Blood Urea Nitrogen 44 mg/dL (9-20); Calcium 8.4 mg/dL (8.4-10.2); Hemolysis Index 2
[2018-02-16] MEDS ORDERED: SUBLIMAZE IV ONE (18:41)
[2018-02-16] MEDS ORDERED: MORPHINE IV ONE (18:43)
--- NOTE | 2018-02-16 19:26 | XRay Report ---
FINAL REPORT PROCEDURE: XR CHEST 1V AP TECHNIQUE: Chest radiograph anteroposterior view. CPT 80935 HISTORY: Fever. Sepsis. COMPARISON: No prior studies are available for comparison. FINDINGS: Heart: Normal. Mediastinum/Vessels: Moderate aortic tortuosity and cannot exclude mild aneurysmal dilation. Lungs/Pleural space: Mild bibasilar opacity. Bony thorax: Mild degenerative changes of the spine. Life support devices: None. IMPRESSION: Moderate aortic tortuosity. May be related to patient positioning, cannot exclude mild aneurysmal dilation. Mild bibasilar opacity, consider atelectasis or pneumonitis. Recommend PA and lateral chest radiograph for further characterization if there is continued clinical concern.
[2018-02-16 20:05] LABS: Bacteria,Urine 1+ /HPF (Negative); Bilirubin,Urine NEG (Negative); Blood,Urine LG (Negative); Color,Urine Red (Yellow)
[2018-02-16 20:08] LABS: RBC,Urine > 182.0 /HPF (0.0-6.0)
[2018-02-16] MEDS: ZOSYN/NS 3.375GM/50ML 3.375 GM/50 ML BAG IV SCH (20:30)
--- NOTE | 2018-02-16 21:10 | Cat Scan Report ---
FINAL REPORT PROCEDURE: CT ABDOMEN PELVIS WO CON TECHNIQUE: Computerized axial tomography of the abdomen and pelvis was performed without intravenous contrast. This study is performed without intravascular contrast material and its sensitivity for abdominal and pelvic pathology, including neoplasms, inflammation, abscess, free fluid, thrombosis, arterial dissection and infarction, is reduced compared with a contrast enhanced study. HISTORY: gross hematuria, hx renal stones COMPARISON: 02/12/2017 FINDINGS: Visualized lower thorax: Patchy right lung base atelectasis or infiltrate. Liver: Circumscribed 18 millimeter rounded low-density in the anterior left hepatic lobe, likely a cyst. Spleen: Normal size and attenuation. Gallbladder and biliary system: Gallbladder is present. Pancreas: Normal. Adrenals: Normal. Kidneys: There is a cyst in the left kidney upper pole, measuring up to 6.8 centimeters. There is a calculus in the right kidney midpole, which measures up to 7 millimeters. Previously seen right ureteral stent has been removed. There are several calculi in the left kidney, measuring up to 5 millimeters. There is a 19 millimeter cyst in the left kidney upper pole. Left ureteral stent has been removed. No ureteral calculi. No hydronephrosis bilaterally. GI tract: Large volume of stool is seen in the colon, particularly the rectosigmoid colon. No bowel obstruction or acute inflammation. Appendix is visualized and does not appear inflamed.. Lymph nodes and mesentery: Normal. Vasculature: Normal. Bladder: Normal. Reproductive organs: Normal. Peritoneum: No free fluid. Musculoskeletal structures: Multilevel lumbar spine degenerative disc changes are present. Chronic appearing deformity of the right superior acetabulum, with heterotopic ossification. Other: None. IMPRESSION: Bilateral renal nonobstructing calculi. Large volume of stool is seen throughout the colon, especially the rectosigmoid colon, compatible with constipation. Correlate for possible obstipation.
[2018-02-16] MEDS ORDERED: BABY ASPIRIN PO ONE (21:52)
--- NOTE | 2018-02-16 21:52 | Emergency Department Report ---
HPI - General Chief Complaint: Abdominal Pain Time Seen by Provider: 02/16/18 18:32 - HPI HPI: The patient is a 67-year-old male With a history of cerebral palsy, chronic indwelling Shin catheter, recurrent UTIs, DM, CAD, and recurrent kidney stones , and who presents for evaluation of hematuria. Per nursing facility staff the patient has experienced constant severe and gross hematuria for the past one day. The patient denies headache, chest pain, cough, dyspnea, diarrhea, blood in the stool, dark tarry stool, flank pain. 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) Additional medical history: CEREBAL PALSY, PARAPLEGIA, APHAKIA, LOW VISION, DYSPHAGIA, CONSTIPATION, - Social History Smoking Status: Never Smoker Substance Use Type: None - Medications Home Medications: Home Medications Medication Instructions Recorded Confirmed Last Taken Type Aspirin [Aspirin TAB] 325 mg PO QDAY 03/19/16 04/29/17 04/22/17 History Atenolol [Tenormin] 50 mg PO DAILY 03/19/16 04/29/17 04/28/17 History Docusate Sodium [Move It Along] 100 mg PO DAILY 03/19/16 04/29/17 04/28/17 History Donepezil [Aricept] 10 mg PO DAILY 03/19/16 04/29/17 04/28/17 History Hydrochlorothiazide [Hctz] 12.5 mg PO QDAY 03/19/16 04/29/17 04/28/17 History Multivitamin Tab W-MINERAL 1 each PO QD 03/19/16 04/29/17 04/28/17 History [Multiple Vitamin/Mineral (Theragran M)] Potassium Chloride [K-Tab ER] 20 meq PO DAILY 03/19/16 04/29/17 04/28/17 History Nitro Dur 0.2 mg TRANSDERMA QHS 04/03/16 04/29/17 04/28/17 History cloNIDine 0.2 mg PO TID 04/03/16 04/29/1704/28/17 History metFORMIN 1,000 mg PO BID 04/03/16 04/29/17 04/28/17 History Sertraline [Zoloft] 100 mg PO QDAY 12/31/16 04/29/17 04/28/17 History Tamsulosin [Flomax] 0.4 mg PO QDAY 12/31/16 04/29/17 04/28/17 History Divalproex ER [DepaKOTE ER] 750 mg PO QHS 02/12/17 04/29/17 04/28/17 History Divalproex ER [Depakote ER] 500 mg PO QAM 02/12/17 04/29/17 04/28/17 History Ondansetron [Zofran Odt] 4 mg PO Q4HR PRN #20 tab.rapdis 02/12/17 04/29/17 Unknown Rx ED Review of Systems ROS: Stated complaint: BLOOD IN URINE Other details as noted in HPI Constitutional: denies: fever ENT: denies: throat or neck pain Respiratory: denies: cough, shortness of breath Cardiovascular: denies: chest pain Endocrine: denies unexplained weight loss or gain Gastrointestinal: denies: abdominal pain, nausea Genitourinary: hematuria reported (per nursing facility) denies: dysuria Musculoskeletal: denies: leg swelling Skin: denies: rash Neurological: denies: headache Hematological/Lymphatic: denies: easy bleeding or easy bruising Psych: denies sadness or hopelessness Physical Exam - Physical Exam Vital Signs: Vital Signs 02/16/18 02/16/18 02/16/18 17:21 17:30 17:46 Temperature 97.7 F Pulse Rate 77 81 82 Respiratory 22 22 18 Rate Blood Pressure 74/46 82/45 100/49 Blood Pressure 82/45 [Left] O2 Sat by Pulse 97 95 97 Oximetry 02/16/18 02/16/18 02/16/18 18:46 19:00 19:05 Temperature Pulse Rate 83 90 Respiratory 17 21 18 Rate Blood Pressure 96/52 102/51 Blood Pressure [Left] O2 Sat by Pulse 95 96 97 Oximetry 02/16/18 02/16/18 02/16/18 19:30 20:00 20:30 Temperature Pulse Rate 86 88 129 H Respiratory 25 H 14 24 Rate Blood Pressure 104/56 93/51 80/50 Blood Pressure [Left] O2 Sat by Pulse 96 93 96 Oximetry 02/16/18 21:00 Temperature Pulse Rate 122 H Respiratory 11 L Rate Blood Pressure 110/66 Blood Pressure [Left] O2 Sat by Pulse 97 Oximetry Physical Exam: General: well-nourished, well-developed, no acute distress Head: Normocephalic, atraumatic Eyes: Opacity to right sclera present ENT: Mucous membranes are pale and dry Neck: trachea midline, neck supple, No neck stiffness, no cervical adenopathy Respiratory: Breath sounds equal bilaterally, no wheezing, rales, or rhonchi Cardio: S1 and S2 present, no murmurs, rubs, gallops, capillary refill is delayed Abdomen: Normoactive bowel sounds, soft abdomen, no rigidity, no guarding or rebound tenderness : Indwelling Shin catheter is present, gross hematuria present in shin bag Chest WALL/Back: No tenderness to palpation of the chest wall, no CVA tenderness with percussion Musc: No pitting edema Skin: No rash Neuro: Alert, disoriented, spontaneously moving upper extremities Psych: Normal affect ED Course Vital Signs 02/16/18 02/16/18 02/16/18 17:21 17:30 17:46 Temperature 97.7 F Pulse Rate 77 81 82 Respiratory 22 22 18 Rate Blood Pressure 74/46 82/45 100/49 Blood Pressure 82/45 [Left] O2 Sat by Pulse 97 95 97 Oximetry 02/16/18 02/16/18 02/16/18 18:46 19:00 19:05 Temperature Pulse Rate 83 90 Respiratory 17 21 18 Rate Blood Pressure 96/52 102/51 Blood Pressure [Left] O2 Sat by Pulse 95 96 97 Oximetry 02/16/18 02/16/18 02/16/18 19:30 20:00 20:30 Temperature Pulse Rate 86 88 129 H Respiratory 25 H 14 24 Rate Blood Pressure 104/56 93/51 80/50 Blood Pressure [Left] O2 Sat by Pulse 96 93 96 Oximetry 02/16/18 21:00 Temperature Pulse Rate 122 H Respiratory 11 L Rate Blood Pressure 110/66 Blood Pressure [Left] O2 Sat by Pulse 97 Oximetry ED Medical Decision Making - Lab Data Result diagrams: 02/16/18 17:48 02/16/18 17:48 - Medical Decision Making The patient was seen and examined by myself. The patient is placed on a campus monitor and continuous pulse ox. On initial evaluation, the patient was found to be in no distress, although with severely low blood pressure 70/50s. The patient is given 2 L normal saline fluid bolus for treatment of his hypotension and tachycardia, and suspected sepsis. Evaluation orders were placed. Lab results reveal elevated serum WBC of 18, and elevated urine WBC with positive leukocyte esterase, consistent with acute urinary tract infection. The patient was administered Zosyn for treatment of his infection. CT scan abdomen and pelvis reveals bilateral kidney stones, but is negative for acute ureterolithiasis or ureteral obstruction. The on-call hospitalist service was contacted. They agreed to admit the patient for further treatment and close monitoring. The ED admit order was placed. The patient was admitted in guarded condition. Critical care attestation.: If time is entered above; I have spent that time in minutes in the direct care of this critically ill patient, excluding procedure time. ED Disposition Clinical Impression: Dehydration, Acute lower UTI (urinary tract infection), Lactic acidosis Sepsis Qualifiers: Sepsis type: sepsis due to unspecified organism Qualified Code(s): A41.9 - Sepsis, unspecified organism Disposition: OP ADMIT IP TO THIS HOSP Is pt being admited?: Yes Does the pt Need Aspirin: Yes Condition: Serious Referrals: MARYCRUZ PALOMARES MD [Primary Care Provider] - 3-5 Days Time of Disposition: 20:19
[2018-02-16] MEDS ORDERED: ATIVAN IV ONE (21:55)
[2018-02-16] MEDS ORDERED: NACL 0.9% 1000 ML 1,000 ML IV ONE (21:55)
[2018-02-16] MEDS ORDERED: LOPRESSOR IV ONE ×2 (22:35→22:37)
[2018-02-16] MEDS ORDERED: TYLENOL PO PRN (22:54)
[2018-02-16] MEDS ORDERED: ZOFRAN IV PRN (22:54)
--- NOTE | 2018-02-16 23:12 | History and Physical Report ---
<KARIN DASILVA Joni - Last Filed: 02/17/18 01:53> History of Present Illness Date of examination: 02/16/18 History of present illness: This is a 67-year-old male with a history of hypertension, diabetes, seizure, paraplegic, dementia, coronary artery disease, depression was sent to the emergency room for evaluation for hematuria. Patient is unable to give a history, review of system unobtainable. Labs were significant for urinary tract infection and possible pneumonia. He was noted to be in A. fib with a rate in the low 140s, patient was given IV Lopressor without any improvement in his rate. He was then given amiodarone 150 with good response PAST MEDICAL HISTORY:hypertension, diabetes, seizure, paraplegic, dementia, coronary artery disease, depression PAST SURGICAL HISTORY: Unknown SOCIAL HISTORY: alf patient, no tobacco, alcohol or drugs FAMILY HISTORY: Unknown Medications and Allergies Allergies Allergy/AdvReac Type Severity Reaction Status Date / Time No Known Allergies Allergy Unverified 03/19/16 21:13 Home Medications Medication Instructions Recorded Confirmed Last Taken Type Aspirin [Aspirin TAB] 325 mg PO QDAY 03/19/16 02/17/18 04/22/17 History Docusate Sodium [Move It Along] 100 mg PO DAILY 03/19/16 02/17/18 04/28/17 History Donepezil [Aricept] 10 mg PO DAILY 03/19/16 02/17/18 04/28/17 History Hydrochlorothiazide [Hctz] 12.5 mg PO QDAY 03/19/16 02/17/18 04/28/17 History Multivitamin Tab W-MINERAL 1 each PO QD 03/19/16 02/17/18 04/28/17 History [Multiple Vitamin/Mineral (Theragran M)] Potassium Chloride [K-Tab ER] 20 meq PO DAILY 03/19/16 02/17/18 04/28/17 History Nitro Dur 0.2 mg TRANSDERMA QAM 04/03/16 02/17/18 04/28/17 History cloNIDine 0.2 mg PO TID 04/03/16 02/17/18 04/28/17 History Sertraline [Zoloft] 100 mg PO QDAY 12/31/16 02/17/18 04/28/17 History Tamsulosin [Flomax] 0.4 mg PO QDAY 12/31/16 02/17/18 04/28/17 History Divalproex ER [DepaKOTE ER] 750 mg PO QHS 02/12/17 02/17/18 04/28/17 History Divalproex ER [Depakote ER] 500 mg PO QAM 02/12/17 02/17/18 04/28/17 History Ascorbic Acid [Vitamin C] 500 mg PO DAILY 02/17/18 02/17/18 Unknown History Losartan Potassium [Cozaar] 50 mg PO DAILY 02/17/18 02/17/18 Unknown History Metformin HCl [Glucophage] 500 mg PO BID 02/17/18 02/17/18 Unknown History Metoprolol Tartrate 50 mg PO DAILY 02/17/18 02/17/18 Unknown History Active Meds: Active Medications Acetaminophen (Tylenol) 650 mg PO Q4H PRN PRN Reason: Pain MILD(1-3)/Fever >100.5/HDEZ Piperacillin Sod/Tazobactam Sod (Zosyn/Ns 3.375gm/50ml) 3.375 gm in 50 mls @ 100 mls/hr IV Q6HR [facility] Last Admin: 02/16/18 20:30 Dose: 100 mls/hr Sodium Chloride (Nacl 0.9% 1000 Ml) 1,000 mls @ 75 mls/hr IV DIRECT [facility] Ondansetron HCl (Zofran) 4 mg IV Q8H PRN PRN Reason: Nausea And Vomiting Sodium Chloride (Sodium Chloride Flush Syringe 10 Ml) 10 ml IV BID [facility] Sodium Chloride (Sodium Chloride Flush Syringe 10 Ml) 10 ml IV PRN PRN PRN Reason: LINE FLUSH Exam - Physical Exam Narrative exam: Gen. appearance: Patient lying in bed, no apparent distress HEENT: Normocephalic, atraumatic, left pupil equally round and reactive to light , right pupil enucleated, extraocular movement intact, and no sclericterus,. No JVD or thyromegaly or nodule,neck supple, no carotid bruit ,mucous membranes moist, no exudate or erythema Heart: S1, S2, regular rate and rhythm Lungs: Clear to auscultation anteriorly bilaterally, breathing comfortable Abdomen: Positive bowel sounds, soft, nondistended, no organomegaly Extremity: No edema, cyanosis, clubbing Skin: No rash, nodules, warm, dry Neuro: Paraplegia - Constitutional Vitals: Temp Pulse Resp BP Pulse Ox 97.7 F 145 H 25 H 109/57 100 02/16/18 17:21 02/16/18 22:30 02/16/18 22:30 02/16/18 22:30 02/16/18 22:30 Results - Labs CBC & Chem 7: 02/16/18 17:48 02/16/18 17:48 Labs: Abnormal lab results 02/16/18 02/16/18 02/16/18 Range/Units 17:48 17:48 17:48 WBC 18.9 H (4.5-11.0) K/mm3 RBC 3.61 L (3.65-5.03) M/mm3 Hgb 11.1 L (11.8-15.2) gm/dl Hct 32.6 L (35.5-45.6) % RDW 15.5 H (13.2-15.2) % Lymph % (Auto) 3.8 L (13.4-35.0) % Lymph # 0.7 L (1.2-5.4) K/mm3 [place] # 1.2 H (0.0-0.8) K/mm3 Seg Neutrophils % 89.7 H (40.0-70.0) % Seg Neutrophils # 17.0 H (1.8-7.7) K/mm3 PT 15.9 H (12.2-14.9) Sec. INR 1.20 H (0.87-1.13) BUN (9-20) mg/dL POC Glucose (70-105) Lactic Acid 2.30 H* (0.7-2.0) mmol/L ALT (7-56) units/L Albumin (3.9-5) g/dL Urine WBC (Auto) (0.0-6.0) /HPF 02/16/18 02/16/18 02/16/18 Range/Units 17:48 19:20 20:59 WBC (4.5-11.0) K/mm3 RBC (3.65-5.03) M/mm3 Hgb (11.8-15.2) gm/dl Hct (35.5-45.6) % RDW (13.2-15.2) % Lymph % (Auto) (13.4-35.0) % Lymph # (1.2-5.4) K/mm3 [place] # (0.0-0.8) K/mm3 Seg Neutrophils % (40.0-70.0) % Seg Neutrophils # (1.8-7.7) K/mm3 PT (12.2-14.9) Sec. INR (0.87-1.13) BUN 44 H (9-20) mg/dL POC Glucose 109 H (70-105) Lactic Acid (0.7-2.0) mmol/L ALT 6 L (7-56) units/L Albumin 2.8 L (3.9-5) g/dL Urine WBC (Auto) 85.0 H (0.0-6.0) /HPF 02/16/18 Range/Units 21:32 WBC (4.5-11.0) K/mm3 RBC (3.65-5.03) M/mm3 Hgb (11.8-15.2) gm/dl Hct (35.5-45.6) % RDW (13.2-15.2) % Lymph % (Auto) (13.4-35.0) % Lymph # (1.2-5.4) K/mm3 [place] # (0.0-0.8) K/mm3 Seg Neutrophils % (40.0-70.0) % Seg Neutrophils # (1.8-7.7) K/mm3 PT (12.2-14.9) Sec. INR (0.87-1.13) BUN (9-20) mg/dL POC Glucose (70-105) Lactic Acid 3.80 H* (0.7-2.0) mmol/L ALT (7-56) units/L Albumin (3.9-5) g/dL Urine WBC (Auto) (0.0-6.0) /HPF - Imaging and Cardiology Chest x-ray: report reviewed CT scan - abdomen: report reviewed CT scan - pelvis: report reviewed Assessment and Plan Assessment A. fib with RVR Sepsis, community acquired Pneumonia UTI Paraplegia Diabete seizure Dementia Plan Check cardiac enzymes, echo, TSH Consult cardiology, start lopressor start IV Zosyn, IV fluids Follow cultures Continue Procrit of his medications DVT prophylaxis <SOCORRO CRISTOBAL - Last Filed: 02/18/18 22:43> History of Present Illness Date of admission: 02/16/18 22:54 Medications and Allergies Active Meds: Active Medications Acetaminophen (Tylenol) 650 mg PO Q4H PRN PRN Reason: Pain MILD(1-3)/Fever >100.5/HDEZ Amiodarone HCl (Cordarone) 200 mg PO QDAY [facility] Aspirin (Aspirin) 325 mg PO QDAY [facility] Last Admin: 02/18/18 10:45 Dose: 325 mg Bisacodyl (Dulcolax) 10 mg MT QDAY PRN PRN Reason: Constipation Divalproex Sodium (Depakote Er) 500 mg PO QAM [facility] Last Admin: 02/18/18 10:46 Dose: 500 mg Divalproex Sodium (Depakote Er) 250 mg PO QHS [facility] Last Admin: 02/18/18 22:16 Dose: 250 mg Divalproex Sodium (Depakote Er) 500 mg PO QHS [facility] Last Admin: 02/18/18 22:16 Dose: 500 mg Docusate Sodium (Colace) 100 mg PO BID [facility] Last Admin: 02/18/18 22:16 Dose: 100 mg Donepezil HCl (Aricept) 10 mg PO DAILY [facility] Last Admin: 02/18/18 10:45 Dose: 10 mg Piperacillin Sod/Tazobactam Sod (Zosyn/Ns 3.375gm/50ml) 3.375 gm in 50 mls @ 100 mls/hr IV Q6HR [facility] Last Admin: 02/18/18 17:41 Dose: 100 mls/hr Sodium Chloride (Nacl 0.9% 1000 Ml) 1,000 mls @ 75 mls/hr IV DIRECT [facility] Last Admin: 02/18/18 12:22 Dose: 75 mls/hr Magnesium Hydroxide (Milk Of Magnesia) 30 ml PO Q4H PRN PRN Reason: Constipation Metoprolol Tartrate (Lopressor) 2.5 mg IV Q6HR PRN PRN Reason: heart rate greater than 130 Metoprolol Tartrate (Lopressor) 25 mg PO Q6HR [facility] Last Admin: 02/18/18 17:47 Dose: Not Given Morphine Sulfate (Morphine) 2 mg IV Q4H PRN PRN Reason: Pain, Moderate (4-6) Last Admin: 02/18/18 01:05 Dose: 2 mg Ondansetron HCl (Zofran) 4 mg IV Q8H PRN PRN Reason: Nausea And Vomiting Sodium Chloride (Sodium Chloride Flush Syringe 10 Ml) 10 ml IV BID [facility] Last Admin: 02/18/18 22:16 Dose: 10 ml Sodium Chloride (Sodium Chloride Flush Syringe 10 Ml) 10 ml IV PRN PRN PRN Reason: LINE FLUSH Last Admin: 02/17/18 21:12 Dose: 10 ml Tamsulosin HCl (Flomax) 0.4 mg PO QDAY [facility] Last Admin: 02/18/18 10:45 Dose: 0.4 mg Exam - Constitutional Vitals: Temp Pulse Resp BP Pulse Ox 98.2 F 78 16 139/81 97 02/18/18 19:48 02/18/18 19:48 02/18/18 19:48 02/18/18 19:48 02/18/18 19:48 Results - Labs CBC & Chem 7: 02/17/18 10:25 02/17/18 10:25 Assessment and Plan I saw and evaluated the patient. I agree with the findings and the plan of care as documented in the Nurse Practitioner's~note, with the following corrections and additions. Patient is 67 yo with rapid afib, pneumonia, UTI. Cardiology to evaluate.
[2018-02-16] MEDS: NACL 0.9% 1000 ML 1,000 ML IV SCH (23:46)
[2018-02-17] MEDS ORDERED: CARDIZEM CD PO ONE (01:00)
[2018-02-17] MEDS: ZOSYN/NS 3.375GM/50ML 3.375 GM/50 ML BAG IV SCH ×4 (01:06→21:11)
[2018-02-17] MEDS ORDERED: CORDARONE 150 MG in D5W 100 ML IV ONE (01:47)
[2018-02-17] MEDS ORDERED: CORDARONE IV ONE (01:48)
[2018-02-17] MEDS: CORDARONE 150 MG in D5W 100 ML IV ONE ×2 (01:50→05:36)
[2018-02-17] MEDS ORDERED: NACL 0.9% 1000 ML 1,000 ML ONE (02:29)
[2018-02-17] MEDS: NACL 0.9% 1000 ML 1,000 ML IV SCH ×2 (02:30→18:49)
[2018-02-17] MEDS ORDERED: LOPRESSOR PO ONE (06:15)
[2018-02-17] MEDS ORDERED: LOPRESSOR ONE (06:45)
[2018-02-17] MEDS: LOPRESSOR PO SCH ×2 (10:20→22:00)
[2018-02-17] MEDS: SODIUM CHLORIDE FLUSH SYRINGE 10 ML IV SCH ×2 (10:36→21:13)
[2018-02-17 10:55] LABS: Basophils % (Auto) 0.2 % (0.0-1.8); Eosinophils # (Auto) 0.1 K/mm3 (0.0-0.4); Eosinophils % (Auto) 0.7 % (0.0-4.3); Hematocrit 36.1 % (35.5-45.6); Hemoglobin 12.1 gm/dl (11.8-15.2); Lymphocytes # (Auto) 0.6 K/mm3 (1.2-5.4); Mean Corpuscular HGB Conc 34 % (32-34); Mean Corpuscular Hemoglobin 31 pg (28-32); Mean Corpuscular Volume 93 fl (84-94); Monocytes # (Auto) 1.4 K/mm3 (0.0-0.8); Monocytes % (Auto) 8.9 % (0.0-7.3); Platelet Count 152 K/mm3 (140-440); Red Blood Count 3.88 M/mm3 (3.65-5.03); Red Cell Distribution Width 15.7 % (13.2-15.2)
[2018-02-17] MEDS: MORPHINE IV PRN (11:00)
[2018-02-17 11:06] LABS: BUN/Creatinine Ratio 36; Blood Urea Nitrogen 29 mg/dL (9-20); Calcium 7.9 mg/dL (8.4-10.2); Hemolysis Index 121
[2018-02-17 11:11] LABS: Creatine Kinase MB < 1.0 ng/mL (0.0-4.0)
--- NOTE | 2018-02-17 14:46 | Progress Note ---
<SEAN MURGUIA - Last Filed: 02/17/18 15:41> Assessment and Plan Assessment and plan: Patient is a 67-year-old man with history of cerebral palsy and chronic indwelling Brody catheter who presented to the emergency department with complaints of hematuria. A. fib with RVR Status post Lopressor and amiodarone administration, heart rate is now controlled, echo ordered UTI Patient initiated on IV antibiotics, culture grew gram-negative rods, likely Escherichia coli, awaiting sensitivity Sepsis, community acquired Improving, continue antibiotics and IVF Pneumonia Patient initiated on IV antibiotics, supplemental oxygen and nebulizer therapy as needed Diabetes ADA diet, sliding scale insulin, Accu-Cheks ACHS seizure Continue Depakote Paraplegia Dementia DVT prophylaxis History Interval history: Patient seen and examined. No new events overnight. Labs and nursing notes reviewed. Hospitalist Physical - Physical exam Narrative exam: General appearance: Present: no acute distress, well-nourished - EENT Eyes: Present: right pupil enucleated, left pupil non reactive to light ENT: hearing intact, clear oral mucosa - Neck Neck: Present: supple, normal ROM - Respiratory Respiratory effort: normal Respiratory: bilateral: CTA - Cardiovascular Rhythm: regular Heart Sounds: Present: S1 & S2 - Extremities Extremities: no ischemia, No edema - Abdominal General gastrointestinal: soft, non-tender, non-distended - Integumentary Integumentary: Present: nodules on chest wall, warm, dry -Genitourinary Indwelling Brody catheter is present, scrotal edema - Psychiatric Psychiatric: cooperative - Neurologic Neurologic: Paraplegic, moves upper extremities - Constitutional Vitals: Temp Pulse Resp BP Pulse Ox 97.7 F 73 16 99/51 97 02/16/18 17:21 02/17/18 12:30 02/17/18 12:30 02/17/18 12:30 02/17/18 12:30 Results - Labs CBC & Chem 7: 02/17/18 10:25 02/17/18 10:25 Labs: Laboratory Last Values WBC 16.1 K/mm3 (4.5-11.0) H 02/17/18 10:25 RBC 3.88 M/mm3 (3.65-5.03) 02/17/18 10:25 Hgb 12.1 gm/dl (11.8-15.2) 02/17/18 10:25 Hct 36.1 % (35.5-45.6) 02/17/18 10:25 MCV 93 fl (84-94) 02/17/18 10:25 MCH 31 pg (28-32) 02/17/18 10:25 MCHC 34 % (32-34) 02/17/18 10:25 RDW 15.7 % (13.2-15.2) H 02/17/18 10:25 Plt Count 152 K/mm3 (140-440) 02/17/18 10:25 Lymph % (Auto) 4.0 % (13.4-35.0) L 02/17/18 10:25 [place] % (Auto) 8.9 % (0.0-7.3) H 02/17/18 10:25 Eos % (Auto) 0.7 % (0.0-4.3) 02/17/18 10:25 Baso % (Auto) 0.2 % (0.0-1.8) 02/17/18 10:25 Lymph # 0.6 K/mm3 (1.2-5.4) L 02/17/18 10:25 [place] # 1.4 K/mm3 (0.0-0.8) H 02/17/18 10:25 Eos # 0.1 K/mm3 (0.0-0.4) 02/17/18 10:25 Baso # 0.0 K/mm3 (0.0-0.1) 02/17/18 10:25 Seg Neutrophils % 86.2 % (40.0-70.0) H 02/17/18 10:25 Seg Neutrophils # 13.9 K/mm3 (1.8-7.7) H 02/17/18 10:25 PT 15.9 Sec. (12.2-14.9) H 02/16/18 17:48 INR 1.20 (0.87-1.13) H 02/16/18 17:48 Sodium 140 mmol/L (137-145) 02/17/18 10:25 Potassium 4.7 mmol/L (3.6-5.0) 02/17/18 10:25 Chloride 102.4 mmol/L (98-107) 02/17/18 10:25 Carbon Dioxide 23 mmol/L (22-30) 02/17/18 10:25 Anion Gap 19 mmol/L 02/17/18 10:25 BUN 29 mg/dL (9-20) H 02/17/18 10:25 Creatinine 0.8 mg/dL (0.8-1.5) 02/17/18 10:25 Estimated GFR > 60 ml/min 02/17/18 10:25 BUN/Creatinine Ratio 36 % 02/17/18 10:25 Glucose 65 mg/dL (75-100) L 02/17/18 10:25 POC Glucose 109 (70-105) H 02/16/18 20:59 Lactic Acid 1.30 mmol/L (0.7-2.0) 02/17/18 13:09 Calcium 7.9 mg/dL (8.4-10.2) L 02/17/18 10:25 Total Bilirubin 0.20 mg/dL (0.1-1.2) 02/16/18 17:48 AST 11 units/L (5-40) 02/16/18 17:48 ALT 6 units/L (7-56) L 02/16/18 17:48 Alkaline Phosphatase 65 units/L (35-129) 02/16/18 17:48 Total Creatine Kinase 29 units/L (55-170) L 02/17/18 10:25 CK-MB (CK-2) < 1.0 ng/mL (0.0-4.0) 02/17/18 10:25 CK-MB (CK-2) Rel Index 3.4 (0-4) 02/17/18 10:25 Troponin T 0.011 ng/mL (0.00-0.029) 02/17/18 10:25 Total Protein 7.1 g/dL (6.3-8.2) 02/16/18 17:48 Albumin 2.8 g/dL (3.9-5) L 02/16/18 17:48 Albumin/Globulin Ratio 0.7 % 02/16/18 17:48 TSH 2.520 mlU/mL (0.270-4.200) 02/17/18 10:25 Urine Color Red (Yellow) 02/16/18 19:20 Urine Turbidity Clear (Clear) 02/16/18 19:20 Urine pH 6.0 (5.0-7.0) 02/16/18 19:20 Ur Specific [place] 1.015 (1.003-1.030) 02/16/18 19:20 Urine Protein 100 mg/dl mg/dL (Negative) 02/16/18 19:20 Urine Glucose (UA) Neg mg/dL (Negative) 02/16/18 19:20 Urine Ketones Neg mg/dL (Negative) 02/16/18 19:20 Urine Blood Lg (Negative) 02/16/18 19:20 Urine Nitrite Pos (Negative) 02/16/18 19:20 Urine Bilirubin Neg (Negative) 02/16/18 19:20 Urine Urobilinogen 2.0 mg/dL (<2.0) 02/16/18 19:20 Ur Leukocyte Esterase Lg (Negative) 02/16/18 19:20 Urine WBC (Auto) 85.0 /HPF (0.0-6.0) H 02/16/18 19:20 Urine RBC (Auto) > 182.0 /HPF (0.0-6.0) 02/16/18 19:20 U Epithel Cells (Auto) 1.0 /HPF (0-13.0) 02/16/18 19:20 Urine Bacteria (Auto) 1+ /HPF (Negative) 02/16/18 19:20 <SOCORRO CRISTOBAL - Last Filed: 02/17/18 17:51> Assessment and Plan Assessment and plan: I saw and evaluated the patient. I agree with the findings and the plan of care as documented in the Nurse Practitioner's~note, with the following corrections and additions. Patient with Sepsis, pneumonia, UTI, atrial fibrillation hematuria. Consulted and discussed with Urologist. cardiology following.. Hospitalist Physical - Constitutional Vitals: Temp Pulse Resp BP Pulse Ox 97.7 F 83 19 90/42 98 02/16/18 17:21 02/17/18 14:30 02/17/18 14:30 02/17/18 14:30 02/17/18 14:30 Results - Labs CBC & Chem 7: 02/17/18 10:25 02/17/18 10:25 Labs: Laboratory Last Values WBC 16.1 K/mm3 (4.5-11.0) H 02/17/18 10:25 RBC 3.88 M/mm3 (3.65-5.03) 02/17/18 10:25 Hgb 12.1 gm/dl (11.8-15.2) 02/17/18 10:25 Hct 36.1 % (35.5-45.6) 02/17/18 10:25 MCV 93 fl (84-94) 02/17/18 10:25 MCH 31 pg (28-32) 02/17/18 10:25 MCHC 34 % (32-34) 02/17/18 10:25 RDW 15.7 % (13.2-15.2) H 02/17/18 10:25 Plt Count 152 K/mm3 (140-440) 02/17/18 10:25 Lymph % (Auto) 4.0 % (13.4-35.0) L 02/17/18 10:25 [place] % (Auto) 8.9 % (0.0-7.3) H 02/17/18 10:25 Eos % (Auto) 0.7 % (0.0-4.3) 02/17/18 10:25 Baso % (Auto) 0.2 % (0.0-1.8) 02/17/18 10:25 Lymph # 0.6 K/mm3 (1.2-5.4) L 02/17/18 10:25 [place] # 1.4 K/mm3 (0.0-0.8) H 02/17/18 10:25 Eos # 0.1 K/mm3 (0.0-0.4) 02/17/18 10:25 Baso # 0.0 K/mm3 (0.0-0.1) 02/17/18 10:25 Seg Neutrophils % 86.2 % (40.0-70.0) H 02/17/18 10:25 Seg Neutrophils # 13.9 K/mm3 (1.8-7.7) H 02/17/18 10:25 PT 15.9 Sec. (12.2-14.9) H 02/16/18 17:48 INR 1.20 (0.87-1.13) H 02/16/18 17:48 Sodium 140 mmol/L (137-145) 02/17/18 10:25 Potassium 4.7 mmol/L (3.6-5.0) 02/17/18 10:25 Chloride 102.4 mmol/L (98-107) 02/17/18 10:25 Carbon Dioxide 23 mmol/L (22-30) 02/17/18 10:25 Anion Gap 19 mmol/L 02/17/18 10:25 BUN 29 mg/dL (9-20) H 02/17/18 10:25 Creatinine 0.8 mg/dL (0.8-1.5) 02/17/18 10:25 Estimated GFR > 60 ml/min 02/17/18 10:25 BUN/Creatinine Ratio 36 % 02/17/18 10:25 Glucose 65 mg/dL (75-100) L 02/17/18 10:25 POC Glucose 109 (70-105) H 02/16/18 20:59 Lactic Acid 1.30 mmol/L (0.7-2.0) 02/17/18 13:09 Calcium 7.9 mg/dL (8.4-10.2) L 02/17/18 10:25 Total Bilirubin 0.20 mg/dL (0.1-1.2) 02/16/18 17:48 AST 11 units/L (5-40) 02/16/18 17:48 ALT 6 units/L (7-56) L 02/16/18 17:48 Alkaline Phosphatase 65 units/L (35-129) 02/16/18 17:48 Total Creatine Kinase 29 units/L (55-170) L 02/17/18 10:25 CK-MB (CK-2) < 1.0 ng/mL (0.0-4.0) 02/17/18 10:25 CK-MB (CK-2) Rel Index 3.4 (0-4) 02/17/18 10:25 Troponin T 0.011 ng/mL (0.00-0.029) 02/17/18 10:25 Total Protein 7.1 g/dL (6.3-8.2) 02/16/18 17:48 Albumin 2.8 g/dL (3.9-5) L 02/16/18 17:48 Albumin/Globulin Ratio 0.7 % 02/16/18 17:48 TSH 2.520 mlU/mL (0.270-4.200) 02/17/18 10:25 Urine Color Red (Yellow) 02/16/18 19:20 Urine Turbidity Clear (Clear) 02/16/18 19:20 Urine pH 6.0 (5.0-7.0) 02/16/18 19:20 Ur Specific [place] 1.015 (1.003-1.030) 02/16/18 19:20 Urine Protein 100 mg/dl mg/dL (Negative) 02/16/18 19:20 Urine Glucose (UA) Neg mg/dL (Negative) 02/16/18 19:20 Urine Ketones Neg mg/dL (Negative) 02/16/18 19:20 Urine Blood Lg (Negative) 02/16/18 19:20 Urine Nitrite Pos (Negative) 02/16/18 19:20 Urine Bilirubin Neg (Negative) 02/16/18 19:20 Urine Urobilinogen 2.0 mg/dL (<2.0) 02/16/18 19:20 Ur Leukocyte Esterase Lg (Negative) 02/16/18 19:20 Urine WBC (Auto) 85.0 /HPF (0.0-6.0) H 02/16/18 19:20 Urine RBC (Auto) > 182.0 /HPF (0.0-6.0) 02/16/18 19:20 U Epithel Cells (Auto) 1.0 /HPF (0-13.0) 02/16/18 19:20 Urine Bacteria (Auto) 1+ /HPF (Negative) 02/16/18 19:20
--- NOTE | 2018-02-17 17:28 | Consultation ---
Medications and Allergies Allergies Allergy/AdvReac Type Severity Reaction Status Date / Time No Known Allergies Allergy Unverified 03/19/16 21:13 Home Medications Medication Instructions Recorded Confirmed Last Taken Type Aspirin [Aspirin TAB] 325 mg PO QDAY 03/19/16 02/17/18 04/22/17 History Docusate Sodium [Move It Along] 100 mg PO DAILY 03/19/16 02/17/18 04/28/17 History Donepezil [Aricept] 10 mg PO DAILY 03/19/16 02/17/18 04/28/17 History Hydrochlorothiazide [Hctz] 12.5 mg PO QDAY 03/19/16 02/17/18 04/28/17 History Multivitamin Tab W-MINERAL 1 each PO QD 03/19/16 02/17/18 04/28/17 History [Multiple Vitamin/Mineral (Theragran M)] Potassium Chloride [K-Tab ER] 20 meq PO DAILY 03/19/16 02/17/18 04/28/17 History Nitro Dur 0.2 mg TRANSDERMA QAM 04/03/16 02/17/18 04/28/17 History cloNIDine 0.2 mg PO TID 04/03/16 02/17/18 04/28/17 History Sertraline [Zoloft] 100 mg PO QDAY 12/31/16 02/17/18 04/28/17 History Tamsulosin [Flomax] 0.4 mg PO QDAY 12/31/16 02/17/18 04/28/17 History Divalproex ER [DepaKOTE ER] 750 mg PO QHS 02/12/17 02/17/18 04/28/17 History Divalproex ER [Depakote ER] 500 mg PO QAM 02/12/17 02/17/18 04/28/17 History Ascorbic Acid [Vitamin C] 500 mg PO DAILY 02/17/18 02/17/18 Unknown History Losartan Potassium [Cozaar] 50 mg PO DAILY 02/17/18 02/17/18 Unknown History Metformin HCl [Glucophage] 500 mg PO BID 02/17/18 02/17/18 Unknown History Metoprolol Tartrate 50 mg PO DAILY 02/17/18 02/17/18 Unknown History Active Meds: Active Medications Acetaminophen (Tylenol) 650 mg PO Q4H PRN PRN Reason: Pain MILD(1-3)/Fever >100.5/HDEZ Aspirin (Aspirin) 325 mg PO QDAY [facility] Divalproex Sodium (Depakote Er) 500 mg PO QAM [facility] Divalproex Sodium (Depakote Er) 250 mg PO QHS [facility] Divalproex Sodium (Depakote Er) 500 mg PO QHS [facility] Donepezil HCl (Aricept) 10 mg PO DAILY [facility] Piperacillin Sod/Tazobactam Sod (Zosyn/Ns 3.375gm/50ml) 3.375 gm in 50 mls @ 100 mls/hr IV Q6HR [facility] Last Admin: 02/17/18 12:15 Dose: 100 mls/hr Sodium Chloride (Nacl 0.9% 1000 Ml) 1,000 mls @ 75 mls/hr IV DIRECT [facility] Last Admin: 02/17/18 02:30 Dose: 75 mls/hr Metoprolol Tartrate (Lopressor) 25 mg PO BID [facility] Last Admin: 02/17/18 10:20 Dose: 25 mg Morphine Sulfate (Morphine) 2 mg IV Q4H PRN PRN Reason: Pain, Moderate (4-6) Last Admin: 02/17/18 11:00 Dose: 2 mg Ondansetron HCl (Zofran) 4 mg IV Q8H PRN PRN Reason: Nausea And Vomiting Sodium Chloride (Sodium Chloride Flush Syringe 10 Ml) 10 ml IV BID [facility] Last Admin: 02/17/18 10:36 Dose: 10 ml Sodium Chloride (Sodium Chloride Flush Syringe 10 Ml) 10 ml IV PRN PRN PRN Reason: LINE FLUSH Tamsulosin HCl (Flomax) 0.4 mg PO QDAY [facility] Exam - Constitutional Vitals: Temp Pulse Resp BP Pulse Ox 97.7 F 83 19 90/42 98 02/16/18 17:21 02/17/18 14:30 02/17/18 14:30 02/17/18 14:30 02/17/18 14:30 Results - Labs CBC & Chem 7: 02/17/18 10:25 02/17/18 10:25 Labs: Abnormal lab results 02/16/18 02/16/18 02/16/18 Range/Units 17:48 17:48 17:48 WBC 18.9 H (4.5-11.0) K/mm3 RBC 3.61 L (3.65-5.03) M/mm3 Hgb 11.1 L (11.8-15.2) gm/dl Hct 32.6 L (35.5-45.6) % RDW 15.5 H (13.2-15.2) % Lymph % (Auto) 3.8 L (13.4-35.0) % [place] % (Auto) (0.0-7.3) % Lymph # 0.7 L (1.2-5.4) K/mm3 [place] # 1.2 H (0.0-0.8) K/mm3 Seg Neutrophils % 89.7 H (40.0-70.0) % Seg Neutrophils # 17.0 H (1.8-7.7) K/mm3 PT 15.9 H (12.2-14.9) Sec. INR 1.20 H (0.87-1.13) BUN (9-20) mg/dL Glucose (75-100) mg/dL POC Glucose (70-105) Lactic Acid 2.30 H* (0.7-2.0) mmol/L Calcium (8.4-10.2) mg/dL ALT (7-56) units/L Total Creatine Kinase (55-170) units/L Albumin (3.9-5) g/dL Urine WBC (Auto) (0.0-6.0) /HPF 02/16/18 02/16/18 02/16/18 Range/Units 17:48 19:20 20:59 WBC (4.5-11.0) K/mm3 RBC (3.65-5.03) M/mm3 Hgb (11.8-15.2) gm/dl Hct (35.5-45.6) % RDW (13.2-15.2) % Lymph % (Auto) (13.4-35.0) % [place] % (Auto) (0.0-7.3) % Lymph # (1.2-5.4) K/mm3 [place] # (0.0-0.8) K/mm3 Seg Neutrophils % (40.0-70.0) % Seg Neutrophils # (1.8-7.7) K/mm3 PT (12.2-14.9) Sec. INR (0.87-1.13) BUN 44 H (9-20) mg/dL Glucose (75-100) mg/dL POC Glucose 109 H (70-105) Lactic Acid (0.7-2.0) mmol/L Calcium (8.4-10.2) mg/dL ALT 6 L (7-56) units/L Total Creatine Kinase (55-170) units/L Albumin 2.8 L (3.9-5) g/dL Urine WBC (Auto) 85.0 H (0.0-6.0) /HPF 02/16/18 02/16/18 02/17/18 Range/Units 21:32 22:46 10:25 WBC 16.1 H (4.5-11.0) K/mm3 RBC (3.65-5.03) M/mm3 Hgb (11.8-15.2) gm/dl Hct (35.5-45.6) % RDW 15.7 H (13.2-15.2) % Lymph % (Auto) 4.0 L (13.4-35.0) % [place] % (Auto) 8.9 H (0.0-7.3) % Lymph # 0.6 L (1.2-5.4) K/mm3 [place] # 1.4 H (0.0-0.8) K/mm3 Seg Neutrophils % 86.2 H (40.0-70.0) % Seg Neutrophils # 13.9 H (1.8-7.7) K/mm3 PT (12.2-14.9) Sec. INR (0.87-1.13) BUN (9-20) mg/dL Glucose (75-100) mg/dL POC Glucose (70-105) Lactic Acid 3.80 H* 2.30 H* (0.7-2.0) mmol/L Calcium (8.4-10.2) mg/dL ALT (7-56) units/L Total Creatine Kinase (55-170) units/L Albumin (3.9-5) g/dL Urine WBC (Auto) (0.0-6.0) /HPF 02/17/18 02/17/18 Range/Units 10:25 10:25 WBC (4.5-11.0) K/mm3 RBC (3.65-5.03) M/mm3 Hgb (11.8-15.2) gm/dl Hct (35.5-45.6) % RDW (13.2-15.2) % Lymph % (Auto) (13.4-35.0) % [place] % (Auto) (0.0-7.3) % Lymph # (1.2-5.4) K/mm3 [place] # (0.0-0.8) K/mm3 Seg Neutrophils % (40.0-70.0) % Seg Neutrophils # (1.8-7.7) K/mm3 PT (12.2-14.9) Sec. INR (0.87-1.13) BUN 29 H (9-20) mg/dL Glucose 65 L (75-100) mg/dL POC Glucose (70-105) Lactic Acid (0.7-2.0) mmol/L Calcium 7.9 L (8.4-10.2) mg/dL ALT (7-56) units/L Total Creatine Kinase 29 L (55-170) units/L Albumin (3.9-5) g/dL Urine WBC (Auto) (0.0-6.0) /HPF
[2018-02-17] MEDS: FLOMAX PO SCH (18:49)
[2018-02-17] MEDS: SODIUM CHLORIDE FLUSH SYRINGE 10 ML IV PRN (21:12)
[2018-02-18] MEDS: MORPHINE IV PRN (01:05)
[2018-02-18] MEDS: ZOSYN/NS 3.375GM/50ML 3.375 GM/50 ML BAG IV SCH ×4 (02:00→17:41)
[2018-02-18] MEDS ORDERED: DULCOLAX PR PRN (03:19)
[2018-02-18] MEDS ORDERED: MILK OF MAGNESIA PO PRN (03:19)
--- NOTE | 2018-02-18 09:32 | Progress Note ---
<SEAN MURGUIA - Last Filed: 02/18/18 12:56> Assessment and Plan Assessment and plan: Patient is a 67-year-old man with history of cerebral palsy and chronic indwelling Brody catheter who presented to the emergency department with complaints of hematuria. A. fib with RVR Status post Lopressor and amiodarone administration, echo results pending Cardiology consulted UTI Patient initiated on IV antibiotics, culture grew Escherichia coli, ESBL ID consulted Sepsis, community acquired Improving, continue antibiotics and IVF Pneumonia Patient initiated on IV antibiotics, supplemental oxygen and nebulizer therapy as needed, continue Diabetes ADA diet, sliding scale insulin, Accu-Cheks ACHS Seizure Continue Depakote Paraplegia Dementia DVT prophylaxis SCDs) glyburide History Interval history: Patient seen and examined. No new events overnight. Labs and nursing notes reviewed. Hospitalist Physical - Physical exam Narrative exam: General appearance: Present: no acute distress, well-nourished - EENT Eyes: Present: right pupil enucleated, left pupil non reactive to light ENT: hearing intact, clear oral mucosa - Neck Neck: Present: supple, normal ROM - Respiratory Respiratory effort: normal Respiratory: bilateral: CTA - Cardiovascular Rhythm: regular Heart Sounds: Present: S1 & S2 - Extremities Extremities: no ischemia, No edema - Abdominal General gastrointestinal: soft, non-tender, non-distended - Integumentary Integumentary: Present: nodules on chest wall, warm, dry -Genitourinary Indwelling Brody catheter is present, scrotal edema - Psychiatric Psychiatric: cooperative - Neurologic Neurologic: Paraplegic, moves upper extremities - Constitutional Vitals: Temp Pulse Resp BP Pulse Ox 98.4 F 81 22 103/72 98 02/18/18 08:07 02/18/18 08:07 02/18/18 08:07 02/18/18 08:07 02/18/18 08:07 Results - Labs CBC & Chem 7: 02/17/18 10:25 02/17/18 10:25 Labs: Laboratory Last Values WBC 16.1 K/mm3 (4.5-11.0) H 02/17/18 10:25 RBC 3.88 M/mm3 (3.65-5.03) 02/17/18 10:25 Hgb 12.1 gm/dl (11.8-15.2) 02/17/18 10:25 Hct 36.1 % (35.5-45.6) 02/17/18 10:25 MCV 93 fl (84-94) 02/17/18 10:25 MCH 31 pg (28-32) 02/17/18 10:25 MCHC 34 % (32-34) 02/17/18 10:25 RDW 15.7 % (13.2-15.2) H 02/17/18 10:25 Plt Count 152 K/mm3 (140-440) 02/17/18 10:25 Lymph % (Auto) 4.0 % (13.4-35.0) L 02/17/18 10:25 [place] % (Auto) 8.9 % (0.0-7.3) H 02/17/18 10:25 Eos % (Auto) 0.7 % (0.0-4.3) 02/17/18 10:25 Baso % (Auto) 0.2 % (0.0-1.8) 02/17/18 10:25 Lymph # 0.6 K/mm3 (1.2-5.4) L 02/17/18 10:25 [place] # 1.4 K/mm3 (0.0-0.8) H 02/17/18 10:25 Eos # 0.1 K/mm3 (0.0-0.4) 02/17/18 10:25 Baso # 0.0 K/mm3 (0.0-0.1) 02/17/18 10:25 Seg Neutrophils % 86.2 % (40.0-70.0) H 02/17/18 10:25 Seg Neutrophils # 13.9 K/mm3 (1.8-7.7) H 02/17/18 10:25 PT 15.9 Sec. (12.2-14.9) H 02/16/18 17:48 INR 1.20 (0.87-1.13) H 02/16/18 17:48 Sodium 140 mmol/L (137-145) 02/17/18 10:25 Potassium 4.7 mmol/L (3.6-5.0) 02/17/18 10:25 Chloride 102.4 mmol/L (98-107) 02/17/18 10:25 Carbon Dioxide 23 mmol/L (22-30) 02/17/18 10:25 Anion Gap 19 mmol/L 02/17/18 10:25 BUN 29 mg/dL (9-20) H 02/17/18 10:25 Creatinine 0.8 mg/dL (0.8-1.5) 02/17/18 10:25 Estimated GFR > 60 ml/min 02/17/18 10:25 BUN/Creatinine Ratio 36 % 02/17/18 10:25 Glucose 65 mg/dL (75-100) L 02/17/18 10:25 POC Glucose 109 (70-105) H 02/16/18 20:59 Lactic Acid 1.30 mmol/L (0.7-2.0) 02/17/18 13:09 Calcium 7.9 mg/dL (8.4-10.2) L 02/17/18 10:25 Total Bilirubin 0.20 mg/dL (0.1-1.2) 02/16/18 17:48 AST 11 units/L (5-40) 02/16/18 17:48 ALT 6 units/L (7-56) L 02/16/18 17:48 Alkaline Phosphatase 65 units/L (35-129) 02/16/18 17:48 Total Creatine Kinase 29 units/L (55-170) L 02/17/18 10:25 CK-MB (CK-2) < 1.0 ng/mL (0.0-4.0) 02/17/18 10:25 CK-MB (CK-2) Rel Index 3.4 (0-4) 02/17/18 10:25 Troponin T 0.011 ng/mL (0.00-0.029) 02/17/18 10:25 Total Protein 7.1 g/dL (6.3-8.2) 02/16/18 17:48 Albumin 2.8 g/dL (3.9-5) L 02/16/18 17:48 Albumin/Globulin Ratio 0.7 % 02/16/18 17:48 TSH 2.520 mlU/mL (0.270-4.200) 02/17/18 10:25 Urine Color Red (Yellow) 02/16/18 19:20 Urine Turbidity Clear (Clear) 02/16/18 19:20 Urine pH 6.0 (5.0-7.0) 02/16/18 19:20 Ur Specific [place] 1.015 (1.003-1.030) 02/16/18 19:20 Urine Protein 100 mg/dl mg/dL (Negative) 02/16/18 19:20 Urine Glucose (UA) Neg mg/dL (Negative) 02/16/18 19:20 Urine Ketones Neg mg/dL (Negative) 02/16/18 19:20 Urine Blood Lg (Negative) 02/16/18 19:20 Urine Nitrite Pos (Negative) 02/16/18 19:20 Urine Bilirubin Neg (Negative) 02/16/18 19:20 Urine Urobilinogen 2.0 mg/dL (<2.0) 02/16/18 19:20 Ur Leukocyte Esterase Lg (Negative) 02/16/18 19:20 Urine WBC (Auto) 85.0 /HPF (0.0-6.0) H 02/16/18 19:20 Urine RBC (Auto) > 182.0 /HPF (0.0-6.0) 02/16/18 19:20 U Epithel Cells (Auto) 1.0 /HPF (0-13.0) 02/16/18 19:20 Urine Bacteria (Auto) 1+ /HPF (Negative) 02/16/18 19:20 <SOCORRO CRISTOBAL - Last Filed: 02/21/18 12:21> Assessment and Plan Assessment and plan: I saw and evaluated the patient. I agree with the findings and the plan of care as documented in the Nurse Practitioner's~note, with the following corrections and additions. Patient with afib with RVR, UTI, sepsis. Continue current management. Hospitalist Physical - Constitutional Vitals: Temp Pulse Resp BP Pulse Ox 98.3 F 68 18 164/77 99 02/19/18 00:15 02/19/18 00:15 02/19/18 00:15 02/19/18 00:15 02/19/18 00:15 Results - Labs CBC & Chem 7: 02/19/18 10:58 02/19/18 10:58 Labs: Laboratory Last Values WBC 16.1 K/mm3 (4.5-11.0) H 02/17/18 10:25 RBC 3.88 M/mm3 (3.65-5.03) 02/17/18 10:25 Hgb 12.1 gm/dl (11.8-15.2) 02/17/18 10:25 Hct 36.1 % (35.5-45.6) 02/17/18 10:25 MCV 93 fl (84-94) 02/17/18 10:25 MCH 31 pg (28-32) 02/17/18 10:25 MCHC 34 % (32-34) 02/17/18 10:25 RDW 15.7 % (13.2-15.2) H 02/17/18 10:25 Plt Count 152 K/mm3 (140-440) 02/17/18 10:25 Lymph % (Auto) 4.0 % (13.4-35.0) L 02/17/18 10:25 [place] % (Auto) 8.9 % (0.0-7.3) H 02/17/18 10:25 Eos % (Auto) 0.7 % (0.0-4.3) 02/17/18 10:25 Baso % (Auto) 0.2 % (0.0-1.8) 02/17/18 10:25 Lymph # 0.6 K/mm3 (1.2-5.4) L 02/17/18 10:25 [place] # 1.4 K/mm3 (0.0-0.8) H 02/17/18 10:25 Eos # 0.1 K/mm3 (0.0-0.4) 02/17/18 10:25 Baso # 0.0 K/mm3 (0.0-0.1) 02/17/18 10:25 Seg Neutrophils % 86.2 % (40.0-70.0) H 02/17/18 10:25 Seg Neutrophils # 13.9 K/mm3 (1.8-7.7) H 02/17/18 10:25 PT 15.9 Sec. (12.2-14.9) H 02/16/18 17:48 INR 1.20 (0.87-1.13) H 02/16/18 17:48 Sodium 140 mmol/L (137-145) 02/17/18 10:25 Potassium 4.7 mmol/L (3.6-5.0) 02/17/18 10:25 Chloride 102.4 mmol/L (98-107) 02/17/18 10:25 Carbon Dioxide 23 mmol/L (22-30) 02/17/18 10:25 Anion Gap 19 mmol/L 02/17/18 10:25 BUN 29 mg/dL (9-20) H 02/17/18 10:25 Creatinine 0.8 mg/dL (0.8-1.5) 02/17/18 10:25 Estimated GFR > 60 ml/min 02/17/18 10:25 BUN/Creatinine Ratio 36 % 02/17/18 10:25 Glucose 65 mg/dL (75-100) L 02/17/18 10:25 POC Glucose 109 (70-105) H 02/16/18 20:59 Lactic Acid 1.30 mmol/L (0.7-2.0) 02/17/18 13:09 Calcium 7.9 mg/dL (8.4-10.2) L 02/17/18 10:25 Total Bilirubin 0.20 mg/dL (0.1-1.2) 02/16/18 17:48 AST 11 units/L (5-40) 02/16/18 17:48 ALT 6 units/L (7-56) L 02/16/18 17:48 Alkaline Phosphatase 65 units/L (35-129) 02/16/18 17:48 Total Creatine Kinase 29 units/L (55-170) L 02/17/18 10:25 CK-MB (CK-2) < 1.0 ng/mL (0.0-4.0) 02/17/18 10:25 CK-MB (CK-2) Rel Index 3.4 (0-4) 02/17/18 10:25 Troponin T 0.011 ng/mL (0.00-0.029) 02/17/18 10:25 Total Protein 7.1 g/dL (6.3-8.2) 02/16/18 17:48 Albumin 2.8 g/dL (3.9-5) L 02/16/18 17:48 Albumin/Globulin Ratio 0.7 % 02/16/18 17:48 TSH 2.520 mlU/mL (0.270-4.200) 02/17/18 10:25 Urine Color Red (Yellow) 02/16/18 19:20 Urine Turbidity Clear (Clear) 02/16/18 19:20 Urine pH 6.0 (5.0-7.0) 02/16/18 19:20 Ur Specific [place] 1.015 (1.003-1.030) 02/16/18 19:20 Urine Protein 100 mg/dl mg/dL (Negative) 02/16/18 19:20 Urine Glucose (UA) Neg mg/dL (Negative) 02/16/18 19:20 Urine Ketones Neg mg/dL (Negative) 02/16/18 19:20 Urine Blood Lg (Negative) 02/16/18 19:20 Urine Nitrite Pos (Negative) 02/16/18 19:20 Urine Bilirubin Neg (Negative) 02/16/18 19:20 Urine Urobilinogen 2.0 mg/dL (<2.0) 02/16/18 19:20 Ur Leukocyte Esterase Lg (Negative) 02/16/18 19:20 Urine WBC (Auto) 85.0 /HPF (0.0-6.0) H 02/16/18 19:20 Urine RBC (Auto) > 182.0 /HPF (0.0-6.0) 02/16/18 19:20 U Epithel Cells (Auto) 1.0 /HPF (0-13.0) 02/16/18 19:20 Urine Bacteria (Auto) 1+ /HPF (Negative) 02/16/18 19:20
[2018-02-18] MEDS: SODIUM CHLORIDE FLUSH SYRINGE 10 ML IV SCH ×2 (10:00→22:16)
[2018-02-18] MEDS: ARICEPT PO SCH (10:45)
[2018-02-18] MEDS: ASPIRIN PO SCH (10:45)
[2018-02-18] MEDS: COLACE PO SCH ×2 (10:45→22:16)
[2018-02-18] MEDS: FLOMAX PO SCH (10:45)
[2018-02-18] MEDS: LOPRESSOR PO SCH ×2 (10:46→17:47)
[2018-02-18] MEDS: NACL 0.9% 1000 ML 1,000 ML IV SCH (12:22)
[2018-02-18] MEDS ORDERED: LOPRESSOR IV PRN (16:34)
[2018-02-18] MEDS ORDERED: CORDARONE IV ONE (16:34)
--- NOTE | 2018-02-18 16:44 | Consultation ---
History of Present Illness Consult date: 02/18/18 Consult reason: atrial fibrillation History of present illness: The patient is a 67-year-old man with advanced dementia who resides in a [facility]. He is noncommunicative. He was brought to the hospital with complaints of having blood in his urine. On presentation here, his WBC was 18, 000, but hematocrit was normal at 36. On his presentation, EKG was sinus rhythm with frequent PACs. Today he was noted to develop rapid atrial fibrillation, which prompted a cardiology consultation. An echocardiogram ordered by the primary medical team demonstrates a well- preserved left ventricle ejection fraction at 50-55%, and normal left atrial size. The chronicity of his paroxysmal atrial fibrillation is uncertain, patient is unable to provide a history. His home medications do not list chronic oral anticoagulation therapy. Currently he is on the telemetry unit, he has to have sinus rhythm with intermittent brief bursts of rapid atrial fibrillation. Past History Past Medical History: hypertension, other (dementia) Medications and Allergies Allergies Allergy/AdvReac Type Severity Reaction Status Date / Time No Known Allergies Allergy Unverified 03/19/16 21:13 Home Medications Medication Instructions Recorded Confirmed Last Taken Type Aspirin [Aspirin TAB] 325 mg PO QDAY 03/19/16 02/17/18 04/22/17 History Docusate Sodium [Move It Along] 100 mg PO DAILY 03/19/16 02/17/18 04/28/17 History Donepezil [Aricept] 10 mg PO DAILY 03/19/16 02/17/18 04/28/17 History Hydrochlorothiazide [Hctz] 12.5 mg PO QDAY 03/19/16 02/17/18 04/28/17 History Multivitamin Tab W-MINERAL 1 each PO QD 03/19/16 02/17/18 04/28/17 History [Multiple Vitamin/Mineral (Theragran M)] Potassium Chloride [K-Tab ER] 20 meq PO DAILY 03/19/16 02/17/18 04/28/17 History Nitro Dur 0.2 mg TRANSDERMA QAM 04/03/16 02/17/18 04/28/17 History cloNIDine 0.2 mg PO TID 04/03/16 02/17/18 04/28/17 History Sertraline [Zoloft] 100 mg PO QDAY 12/31/16 02/17/18 04/28/17 History Tamsulosin [Flomax] 0.4 mg PO QDAY 12/31/16 02/17/18 04/28/17 History Divalproex ER [DepaKOTE ER] 750 mg PO QHS 02/12/17 02/17/18 04/28/17 History Divalproex ER [Depakote ER] 500 mg PO QAM 02/12/17 02/17/18 04/28/17 History Ascorbic Acid [Vitamin C] 500 mg PO DAILY 02/17/18 02/17/18 Unknown History Losartan Potassium [Cozaar] 50 mg PO DAILY 02/17/18 02/17/18 Unknown History Metformin HCl [Glucophage] 500 mg PO BID 02/17/18 02/17/18 Unknown History Metoprolol Tartrate 50 mg PO DAILY 02/17/18 02/17/18 Unknown History Active Meds: Active Medications Acetaminophen (Tylenol) 650 mg PO Q4H PRN PRN Reason: Pain MILD(1-3)/Fever >100.5/HDEZ Amiodarone HCl (Cordarone) 300 mg IV ONCE ONE Stop: 02/18/18 16:35 Amiodarone HCl (Cordarone) 200 mg PO QDAY [facility] Aspirin (Aspirin) 325 mg PO QDAY [facility] Last Admin: 02/18/18 10:45 Dose: 325 mg Bisacodyl (Dulcolax) 10 mg OK QDAY PRN PRN Reason: Constipation Divalproex Sodium (Depakote Er) 500 mg PO QAM [facility] Last Admin: 02/18/18 10:46 Dose: 500 mg Divalproex Sodium (Depakote Er) 250 mg PO QHS [facility] Last Admin: 02/17/18 21:11 Dose: 250 mg Divalproex Sodium (Depakote Er) 500 mg PO QHS [facility] Last Admin: 02/17/18 21:11 Dose: 500 mg Docusate Sodium (Colace) 100 mg PO BID [facility] Last Admin: 02/18/18 10:45 Dose: 100 mg Donepezil HCl (Aricept) 10 mg PO DAILY [facility] Last Admin: 02/18/18 10:45 Dose: 10 mg Piperacillin Sod/Tazobactam Sod (Zosyn/Ns 3.375gm/50ml) 3.375 gm in 50 mls @ 100 mls/hr IV Q6HR [facility] Last Admin: 02/18/18 12:21 Dose: 100 mls/hr Sodium Chloride (Nacl 0.9% 1000 Ml) 1,000 mls @ 75 mls/hr IV DIRECT [facility] Last Admin: 02/18/18 12:22 Dose: 75 mls/hr Magnesium Hydroxide (Milk Of Magnesia) 30 ml PO Q4H PRN PRN Reason: Constipation Metoprolol Tartrate (Lopressor) 2.5 mg IV Q6HR PRN PRN Reason: heart rate greater than 130 Metoprolol Tartrate (Lopressor) 25 mg PO Q6HR [facility] Morphine Sulfate (Morphine) 2 mg IV Q4H PRN PRN Reason: Pain, Moderate (4-6) Last Admin: 02/18/18 01:05 Dose: 2 mg Ondansetron HCl (Zofran) 4 mg IV Q8H PRN PRN Reason: Nausea And Vomiting Sodium Chloride (Sodium Chloride Flush Syringe 10 Ml) 10 ml IV BID [facility] Last Admin: 02/18/18 10:00 Dose: 10 ml Sodium Chloride (Sodium Chloride Flush Syringe 10 Ml) 10 ml IV PRN PRN PRN Reason: LINE FLUSH Last Admin: 02/17/18 21:12 Dose: 10 ml Tamsulosin HCl (Flomax) 0.4 mg PO QDAY [facility] Last Admin: 02/18/18 10:45 Dose: 0.4 mg Review of Systems ROS unobtainable: due to mental status Physical Examination Vital Signs Temp Pulse Resp BP Pulse Ox 97.3 F L 80 22 82/45 100 02/16/18 17:21 02/16/18 17:21 02/16/18 17:21 02/16/18 17:21 02/16/18 17:21 General appearance: other (frail elderly noncommunicative) HEENT: Positive: PERRL Neck: Positive: neck supple Cardiac: Positive: irregularly irregular Lungs: Positive: Decreased Breath Sounds Neuro: Positive: Weakness Abdomen: Positive: Soft Male genitourinary: Positive: deferred Skin: Positive: Clear Extremities: Absent: edema Results 02/17/18 10:25 02/17/18 10:25 EKG interpretations - Telemetry EKG Rhythm: Atrial Fibrillation Assessment and Plan - Patient Problems (1) Paroxysmal atrial fibrillation Current Visit: Yes Status: Acute Plan to address problem: Patient has paroxysmal atrial fibrillation, TSH level is normal at 2.5, echocardiogram reveals well-preserved left ventricular systolic function, ejection fraction of 50-55%, normal left atrial size. We will recommend beta yair therapy with amiodarone for atrial fibrillation suppression. Judicious use of AV reena blocking agents, and telemetry monitoring for any evidence of sick sinus or tachybradycardia syndrome. Due to his presenting hematuria, advanced age, frail clinical status, we will not recommend oral anticoagulation therapy at this time.
[2018-02-18] MEDS ORDERED: CORDARONE 300 MG in D5W 100 ML IV ONE (17:00)
[2018-02-19] MEDS: ZOSYN/NS 3.375GM/50ML 3.375 GM/50 ML BAG IV SCH ×3 (00:40→11:45)
[2018-02-19] MEDS: LOPRESSOR PO SCH ×4 (01:21→17:19)
[2018-02-19] MEDS: NACL 0.9% 1000 ML 1,000 ML IV SCH ×2 (07:15→21:57)
[2018-02-19] MEDS: CORDARONE PO SCH (09:55)
[2018-02-19] MEDS: FLOMAX PO SCH (09:55)
[2018-02-19] MEDS: ASPIRIN PO SCH (09:55)
[2018-02-19] MEDS: COLACE PO SCH ×2 (09:55→21:55)
[2018-02-19] MEDS: ARICEPT PO SCH (09:55)
[2018-02-19] MEDS: SODIUM CHLORIDE FLUSH SYRINGE 10 ML IV SCH ×2 (09:56→21:58)
--- NOTE | 2018-02-19 10:00 | Progress Note ---
<SEAN MURGUIA - Last Filed: 02/19/18 14:21> Assessment and Plan Assessment and plan: Patient is a 67-year-old man with history of cerebral palsy and chronic indwelling Brody catheter who presented to the emergency department with complaints of hematuria. A. fib with RVR Lopressor and amiodarone will be continued, echo showed a well-preserved left ventricle ejection fraction at 50-55%, and normal left atrial size Cardiology following, Due to his presenting hematuria, advanced age, frail clinical status, we will not recommend oral anticoagulation therapy at this time. UTI culture grew Escherichia coli, ESBL, Zosyn discontinued, meropenem initiated, ID following -upon discharge - ertapenem 1 g IV q day total 14 days until , PICC line ordered Sepsis, community acquired Improving, continue antibiotics and IVF Pneumonia Patient initiated on IV antibiotics, supplemental oxygen and nebulizer therapy as needed, continue Diabetes ADA diet, sliding scale insulin, Accu-Cheks ACHS Seizure Continue Depakote Paraplegia Dementia DVT prophylaxis SCDs) glyburide History Interval history: Patient seen and examined. No new events overnight. Labs and nursing notes reviewed. Hospitalist Physical - Physical exam Narrative exam: General appearance: Present: no acute distress, well-nourished - EENT Eyes: Present: right pupil enucleated, left pupil non reactive to light ENT: hearing intact, clear oral mucosa - Neck Neck: Present: supple, normal ROM - Respiratory Respiratory effort: normal Respiratory: bilateral: CTA - Cardiovascular Rhythm: regular Heart Sounds: Present: S1 & S2 - Extremities Extremities: no ischemia, No edema - Abdominal General gastrointestinal: soft, non-tender, non-distended - Integumentary Integumentary: Present: nodules on chest wall, warm, dry -Genitourinary Indwelling Brody catheter is present, scrotal edema - Psychiatric Psychiatric: cooperative - Neurologic Neurologic: Paraplegic, moves upper extremities - Constitutional Vitals: Temp Pulse Resp BP Pulse Ox 98.4 F 73 24 152/76 97 02/19/18 08:11 02/19/18 08:11 02/19/18 08:11 02/19/18 08:11 02/19/18 08:11 General appearance: Present: other (frail elderly noncommunicative) Results - Labs CBC & Chem 7: 02/19/18 10:58 02/19/18 10:58 Labs: Laboratory Last Values WBC 16.1 K/mm3 (4.5-11.0) H 02/17/18 10:25 RBC 3.88 M/mm3 (3.65-5.03) 02/17/18 10:25 Hgb 12.1 gm/dl (11.8-15.2) 02/17/18 10:25 Hct 36.1 % (35.5-45.6) 02/17/18 10:25 MCV 93 fl (84-94) 02/17/18 10:25 MCH 31 pg (28-32) 02/17/18 10:25 MCHC 34 % (32-34) 02/17/18 10:25 RDW 15.7 % (13.2-15.2) H 02/17/18 10:25 Plt Count 152 K/mm3 (140-440) 02/17/18 10:25 Lymph % (Auto) 4.0 % (13.4-35.0) L 02/17/18 10:25 [place] % (Auto) 8.9 % (0.0-7.3) H 02/17/18 10:25 Eos % (Auto) 0.7 % (0.0-4.3) 02/17/18 10:25 Baso % (Auto) 0.2 % (0.0-1.8) 02/17/18 10:25 Lymph # 0.6 K/mm3 (1.2-5.4) L 02/17/18 10:25 [place] # 1.4 K/mm3 (0.0-0.8) H 02/17/18 10:25 Eos # 0.1 K/mm3 (0.0-0.4) 02/17/18 10:25 Baso # 0.0 K/mm3 (0.0-0.1) 02/17/18 10:25 Seg Neutrophils % 86.2 % (40.0-70.0) H 02/17/18 10:25 Seg Neutrophils # 13.9 K/mm3 (1.8-7.7) H 02/17/18 10:25 PT 15.9 Sec. (12.2-14.9) H 02/16/18 17:48 INR 1.20 (0.87-1.13) H 02/16/18 17:48 Sodium 140 mmol/L (137-145) 02/17/18 10:25 Potassium 4.7 mmol/L (3.6-5.0) 02/17/18 10:25 Chloride 102.4 mmol/L (98-107) 02/17/18 10:25 Carbon Dioxide 23 mmol/L (22-30) 02/17/18 10:25 Anion Gap 19 mmol/L 02/17/18 10:25 BUN 29 mg/dL (9-20) H 02/17/18 10:25 Creatinine 0.8 mg/dL (0.8-1.5) 02/17/18 10:25 Estimated GFR > 60 ml/min 02/17/18 10:25 BUN/Creatinine Ratio 36 % 02/17/18 10:25 Glucose 65 mg/dL (75-100) L 02/17/18 10:25 POC Glucose 109 (70-105) H 02/16/18 20:59 Lactic Acid 1.30 mmol/L (0.7-2.0) 02/17/18 13:09 Calcium 7.9 mg/dL (8.4-10.2) L 02/17/18 10:25 Total Bilirubin 0.20 mg/dL (0.1-1.2) 02/16/18 17:48 AST 11 units/L (5-40) 02/16/18 17:48 ALT 6 units/L (7-56) L 02/16/18 17:48 Alkaline Phosphatase 65 units/L (35-129) 02/16/18 17:48 Total Creatine Kinase 29 units/L (55-170) L 02/17/18 10:25 CK-MB (CK-2) < 1.0 ng/mL (0.0-4.0) 02/17/18 10:25 CK-MB (CK-2) Rel Index 3.4 (0-4) 02/17/18 10:25 Troponin T 0.011 ng/mL (0.00-0.029) 02/17/18 10:25 Total Protein 7.1 g/dL (6.3-8.2) 02/16/18 17:48 Albumin 2.8 g/dL (3.9-5) L 02/16/18 17:48 Albumin/Globulin Ratio 0.7 % 02/16/18 17:48 TSH 2.520 mlU/mL (0.270-4.200) 02/17/18 10:25 Urine Color Red (Yellow) 02/16/18 19:20 Urine Turbidity Clear (Clear) 02/16/18 19:20 Urine pH 6.0 (5.0-7.0) 02/16/18 19:20 Ur Specific [place] 1.015 (1.003-1.030) 02/16/18 19:20 Urine Protein 100 mg/dl mg/dL (Negative) 02/16/18 19:20 Urine Glucose (UA) Neg mg/dL (Negative) 02/16/18 19:20 Urine Ketones Neg mg/dL (Negative) 02/16/18 19:20 Urine Blood Lg (Negative) 02/16/18 19:20 Urine Nitrite Pos (Negative) 02/16/18 19:20 Urine Bilirubin Neg (Negative) 02/16/18 19:20 Urine Urobilinogen 2.0 mg/dL (<2.0) 02/16/18 19:20 Ur Leukocyte Esterase Lg (Negative) 02/16/18 19:20 Urine WBC (Auto) 85.0 /HPF (0.0-6.0) H 02/16/18 19:20 Urine RBC (Auto) > 182.0 /HPF (0.0-6.0) 02/16/18 19:20 U Epithel Cells (Auto) 1.0 /HPF (0-13.0) 02/16/18 19:20 Urine Bacteria (Auto) 1+ /HPF (Negative) 02/16/18 19:20 <SOCORRO CRISTOBAL - Last Filed: 02/21/18 12:25> Assessment and Plan Assessment and plan: I saw and evaluated the patient. I agree with the findings and the plan of care as documented in the Nurse Practitioner's~note, with the following corrections and additions. Patient with atrial fib, sepsis, ESBL urinary tract infection. Hospitalist Physical - Constitutional Vitals: Temp Pulse Resp BP Pulse Ox 98.6 F 80 18 149/91 100 02/21/18 05:23 02/21/18 10:00 02/21/18 05:23 02/21/18 05:23 02/21/18 05:23 Results - Labs CBC & Chem 7: 02/19/18 10:58 02/19/18 10:58 Labs: Laboratory Last Values WBC 7.7 K/mm3 (4.5-11.0) 02/19/18 10:58 RBC 3.53 M/mm3 (3.65-5.03) L 02/19/18 10:58 Hgb 10.4 gm/dl (11.8-15.2) L 02/19/18 10:58 Hct 32.2 % (35.5-45.6) L 02/19/18 10:58 MCV 91 fl (84-94) 02/19/18 10:58 MCH 30 pg (28-32) 02/19/18 10:58 MCHC 32 % (32-34) 02/19/18 10:58 RDW 15.1 % (13.2-15.2) 02/19/18 10:58 Plt Count 155 K/mm3 (140-440) 02/19/18 10:58 Lymph % (Auto) 4.0 % (13.4-35.0) L 02/17/18 10:25 [place] % (Auto) 8.9 % (0.0-7.3) H 02/17/18 10:25 Eos % (Auto) 0.7 % (0.0-4.3) 02/17/18 10:25 Baso % (Auto) 0.2 % (0.0-1.8) 02/17/18 10:25 Lymph # 0.6 K/mm3 (1.2-5.4) L 02/17/18 10:25 [place] # 1.4 K/mm3 (0.0-0.8) H 02/17/18 10:25 Eos # 0.1 K/mm3 (0.0-0.4) 02/17/18 10:25 Baso # 0.0 K/mm3 (0.0-0.1) 02/17/18 10:25 Add Manual Diff Complete 02/19/18 10:58 Total Counted 100 02/19/18 10:58 Seg Neutrophils % 86.2 % (40.0-70.0) H 02/17/18 10:25 Seg Neuts % (Manual) 80.0 % (40.0-70.0) H 02/19/18 10:58 Band Neutrophils % 0 % 02/19/18 10:58 Lymphocytes % (Manual) 7.0 % (13.4-35.0) L 02/19/18 10:58 Reactive Lymphs % (Man) 0 % 02/19/18 10:58 Monocytes % (Manual) 8.0 % (0.0-7.3) H 02/19/18 10:58 Eosinophils % (Manual) 5.0 % (0.0-4.3) H 02/19/18 10:58 Basophils % (Manual) 0 % (0.0-1.8) 02/19/18 10:58 Metamyelocytes % 0 % 02/19/18 10:58 Myelocytes % 0 % 02/19/18 10:58 Promyelocytes % 0 % 02/19/18 10:58 Blast Cells % 0 % 02/19/18 10:58 Nucleated RBC % Not Reportable 02/19/18 10:58 Seg Neutrophils # 13.9 K/mm3 (1.8-7.7) H 02/17/18 10:25 Seg Neutrophils # Man 6.2 K/mm3 (1.8-7.7) 02/19/18 10:58 Band Neutrophils # 0.0 K/mm3 02/19/18 10:58 Lymphocytes # (Manual) 0.5 K/mm3 (1.2-5.4) L 02/19/18 10:58 Abs React Lymphs (Man) 0.0 K/mm3 02/19/18 10:58 Monocytes # (Manual) 0.6 K/mm3 (0.0-0.8) 02/19/18 10:58 Eosinophils # (Manual) 0.4 K/mm3 (0.0-0.4) 02/19/18 10:58 Basophils # (Manual) 0.0 K/mm3 (0.0-0.1) 02/19/18 10:58 Metamyelocytes # 0.0 K/mm3 02/19/18 10:58 Myelocytes # 0.0 K/mm3 02/19/18 10:58 Promyelocytes # 0.0 K/mm3 02/19/18 10:58 Blast Cells # 0.0 K/mm3 02/19/18 10:58 WBC Morphology Not Reportable 02/19/18 10:58 Hypersegmented Neuts Not Reportable 02/19/18 10:58 Hyposegmented Neuts Not Reportable 02/19/18 10:58 Hypogranular Neuts Not Reportable 02/19/18 10:58 Smudge Cells Not Reportable 02/19/18 10:58 Toxic Granulation Not Reportable 02/19/18 10:58 Toxic Vacuolation Not Reportable 02/19/18 10:58 Dohle Bodies Not Reportable 02/19/18 10:58 Pelger-Huet Anomaly Not Reportable 02/19/18 10:58 Rupal Rods Not Reportable 02/19/18 10:58 Platelet Estimate Appears normal 02/19/18 10:58 Clumped Platelets Not Reportable 02/19/18 10:58 Plt Clumps, EDTA Not Reportable 02/19/18 10:58 Large Platelets Not Reportable 02/19/18 10:58 Giant Platelets Not Reportable 02/19/18 10:58 Platelet Satelliting Not Reportable 02/19/18 10:58 Plt Morphology Comment Not Reportable 02/19/18 10:58 RBC Morphology Not Reportable 02/19/18 10:58 Dimorphic RBCs Not Reportable 02/19/18 10:58 Polychromasia Not Reportable 02/19/18 10:58 Hypochromasia Not Reportable 02/19/18 10:58 Poikilocytosis Not Reportable 02/19/18 10:58 Anisocytosis 1+ 02/19/18 10:58 Microcytosis Not Reportable 02/19/18 10:58 Macrocytosis Not Reportable 02/19/18 10:58 Spherocytes Not Reportable 02/19/18 10:58 Pappenheimer Bodies Not Reportable 02/19/18 10:58 Sickle Cells Not Reportable 02/19/18 10:58 Target Cells Not Reportable 02/19/18 10:58 Tear Drop Cells Not Reportable 02/19/18 10:58 Ovalocytes 1+ 02/19/18 10:58 Helmet Cells Rare 02/19/18 10:58 [place] Bodies Not Reportable 02/19/18 10:58 [place] Rings Not Reportable 02/19/18 10:58 [place] Cells Not Reportable 02/19/18 10:58 Bite Cells Not Reportable 02/19/18 10:58 Crenated Cell Not Reportable 02/19/18 10:58 Elliptocytes Few 02/19/18 10:58 Acanthocytes (Spur) Not Reportable 02/19/18 10:58 Rouleaux Not Reportable 02/19/18 10:58 Hemoglobin C Crystals Not Reportable 02/19/18 10:58 Schistocytes Not Reportable 02/19/18 10:58 Malaria parasites Not Reportable 02/19/18 10:58 Berny Bodies Not Reportable 02/19/18 10:58 Hem Pathologist Commnt No 02/19/18 10:58 PT 15.9 Sec. (12.2-14.9) H 02/16/18 17:48 INR 1.20 (0.87-1.13) H 02/16/18 17:48 Sodium 140 mmol/L (137-145) 02/19/18 10:58 Potassium 4.3 mmol/L (3.6-5.0) 02/19/18 10:58 Chloride 105.0 mmol/L (98-107) 02/19/18 10:58 Carbon Dioxide 24 mmol/L (22-30) 02/19/18 10:58 Anion Gap 15 mmol/L 02/19/18 10:58 BUN 13 mg/dL (9-20) 02/19/18 10:58 Creatinine 0.7 mg/dL (0.8-1.5) L 02/19/18 10:58 Estimated GFR > 60 ml/min 02/19/18 10:58 BUN/Creatinine Ratio 19 % 02/19/18 10:58 Glucose 121 mg/dL (75-100) H 02/19/18 10:58 POC Glucose 99 (70-105) 02/21/18 11:21 Lactic Acid 1.30 mmol/L (0.7-2.0) 02/17/18 13:09 Calcium 8.1 mg/dL (8.4-10.2) L 02/19/18 10:58 Total Bilirubin 0.20 mg/dL (0.1-1.2) 02/16/18 17:48 AST 11 units/L (5-40) 02/16/18 17:48 ALT 6 units/L (7-56) L 02/16/18 17:48 Alkaline Phosphatase 65 units/L (35-129) 02/16/18 17:48 Total Creatine Kinase 29 units/L (55-170) L 02/17/18 10:25 CK-MB (CK-2) < 1.0 ng/mL (0.0-4.0) 02/17/18 10:25 CK-MB (CK-2) Rel Index 3.4 (0-4) 02/17/18 10:25 Troponin T 0.011 ng/mL (0.00-0.029) 02/17/18 10:25 Total Protein 7.1 g/dL (6.3-8.2) 02/16/18 17:48 Albumin 2.8 g/dL (3.9-5) L 02/16/18 17:48 Albumin/Globulin Ratio 0.7 % 02/16/18 17:48 TSH 2.520 mlU/mL (0.270-4.200) 02/17/18 10:25 Urine Color Red (Yellow) 02/16/18 19:20 Urine Turbidity Clear (Clear) 02/16/18 19:20 Urine pH 6.0 (5.0-7.0) 02/16/18 19:20 Ur Specific [place] 1.015 (1.003-1.030) 02/16/18 19:20 Urine Protein 100 mg/dl mg/dL (Negative) 02/16/18 19:20 Urine Glucose (UA) Neg mg/dL (Negative) 02/16/18 19:20 Urine Ketones Neg mg/dL (Negative) 02/16/18 19:20 Urine Blood Lg (Negative) 02/16/18 19:20 Urine Nitrite Pos (Negative) 02/16/18 19:20 Urine Bilirubin Neg (Negative) 02/16/18 19:20 Urine Urobilinogen 2.0 mg/dL (<2.0) 02/16/18 19:20 Ur Leukocyte Esterase Lg (Negative) 02/16/18 19:20 Urine WBC (Auto) 85.0 /HPF (0.0-6.0) H 02/16/18 19:20 Urine RBC (Auto) > 182.0 /HPF (0.0-6.0) 02/16/18 19:20 U Epithel Cells (Auto) 1.0 /HPF (0-13.0) 02/16/18 19:20 Urine Bacteria (Auto) 1+ /HPF (Negative) 02/16/18 19:20
--- NOTE | 2018-02-19 10:47 | Progress Note ---
Assessment and Plan Hematuria UTI -ecoli Paroxysmal atrial fibrillation, uncertain duration currently in sinus rhythm normal TSH on amiodarone and metoprolol for suppression. Dementia An echocardiogram demonstrates a well-preserved left ventricle ejection fraction at 50-55%, and normal left atrial size. Recommendations: Continue medical therapy for paroxysmal afib. Due to his presenting hematuria, advanced age, frail clinical status, we will not recommend oral anticoagulation therapy at this time. Subjective Date of service: 02/19/18 Interval history: Patient is resting in bed comfortably. Stable sinus rhythm on telemetry monitoring. Objective Vital Signs Temp Pulse Pulse Resp BP BP Pulse Ox 02/19/18 10:31 95 02/19/18 10:00 73 24 97 02/19/18 08:11 98.4 F 73 24 152/76 97 02/19/18 05:16 73 150/90 02/19/18 04:10 98.3 F 73 18 150/90 98 02/19/18 01:21 65 164/77 02/19/18 00:15 98.3 F 68 18 164/77 99 02/18/18 19:48 98.2 F 78 16 139/81 97 02/18/18 19:38 95 H 02/18/18 19:24 98.2 F 80 18 139/81 96 02/18/18 17:47 51 L 114/66 02/18/18 11:14 98.3 F 139 H 20 147/85 97 02/18/18 11:00 70 02/18/18 10:46 81 103/72 - Physical Examination General: No Apparent Distress Cardiac: Positive: Reg Rate and Rhythm
[2018-02-19 11:57] LABS: Hematocrit 32.2 % (35.5-45.6); Hemoglobin 10.4 gm/dl (11.8-15.2); Mean Corpuscular HGB Conc 32 % (32-34); Mean Corpuscular Hemoglobin 30 pg (28-32); Mean Corpuscular Volume 91 fl (84-94); Platelet Count 155 K/mm3 (140-440); Red Blood Count 3.53 M/mm3 (3.65-5.03); Red Cell Distribution Width 15.1 % (13.2-15.2)
[2018-02-19 12:09] LABS: BUN/Creatinine Ratio 19; Blood Urea Nitrogen 13 mg/dL (9-20); Calcium 8.1 mg/dL (8.4-10.2); Hemolysis Index 166
[2018-02-19 13:05] LABS: Anisocytosis 1+; Basophils % (Manual) 0 % (0.0-1.8); Ovalocytes 1+; Total Cells Counted 100
[2018-02-19 13:06] LABS: Helmet Cells Rare
--- NOTE | 2018-02-19 13:34 | Consultation ---
History of Present Illness - Reason for Consult Consult date: 02/19/18 ESBL UTI Requesting physician: SEAN MURGUIA - History of Present Illness 67 y/o male with a history of hypertension, diabetes, seizure, paraplegic, dementia, coronary artery disease, depression, chronic indwelling shin; from [facility], admitted on 02/16/18 due to hematuria. Patient is unable to give a history, review of system unobtainable due to dementia. Of note, patient was seen back in December 2016 due to acute abdominal pain and found to have and right ureteral obstruction status post stent placement/removal. In the ED, initial temperature was 97.3, heart rate 83, blood pressure 74/46, respiration 22, O2 sat 100%. Initial white count 18.9. Hemoglobin 11.6. Platelets 161. Creatinine 1.1. Lactic acid 2.3. Urinalysis shows 85 white blood cells and large leukocyte esterase. Urine culture showed ESBL Escherichia coli. CT of the abdomen show bilateral renal nonobstructive calculi with large bowel with large amount of stools. CXR bibasilar infiltrates. Microbiology: Blood cultures: 02/16 ngtd Urine cultures: 02/16 ESBL E coli Current Antimicrobials: Zosyn 02/16 Previous Antimicrobials: Past History Past Medical History: hypertension, other (dementia) Medications and Allergies Allergies Allergy/AdvReac Type Severity Reaction Status Date / Time No Known Allergies Allergy Unverified 03/19/16 21:13 Home Medications Medication Instructions Recorded Confirmed Last Taken Type Aspirin [Aspirin TAB] 325 mg PO QDAY 03/19/16 02/17/18 04/22/17 History Docusate Sodium [Move It Along] 100 mg PO DAILY 03/19/16 02/17/18 04/28/17 History Donepezil [Aricept] 10 mg PO DAILY 03/19/16 02/17/18 04/28/17 History Hydrochlorothiazide [Hctz] 12.5 mg PO QDAY 03/19/16 02/17/18 04/28/17 History Multivitamin Tab W-MINERAL 1 each PO QD 03/19/16 02/17/18 04/28/17 History [Multiple Vitamin/Mineral (Theragran M)] Potassium Chloride [K-Tab ER] 20 meq PO DAILY 03/19/16 02/17/18 04/28/17 History Nitro Dur 0.2 mg TRANSDERMA QAM 04/03/16 02/17/18 04/28/17 History cloNIDine 0.2 mg PO TID 04/03/16 02/17/18 04/28/17 History Sertraline [Zoloft] 100 mg PO QDAY 12/31/16 02/17/18 04/28/17 History Tamsulosin [Flomax] 0.4 mg PO QDAY 12/31/16 02/17/18 04/28/17 History Divalproex ER [DepaKOTE ER] 750 mg PO QHS 02/12/17 02/17/18 04/28/17 History Divalproex ER [Depakote ER] 500 mg PO QA 02/12/17 02/17/18 04/28/17 History Ascorbic Acid [Vitamin C] 500 mg PO DAILY 02/17/18 02/17/18 Unknown History Losartan Potassium [Cozaar] 50 mg PO DAILY 02/17/18 02/17/18 Unknown History Metformin HCl [Glucophage] 500 mg PO BID 02/17/18 02/17/18 Unknown History Metoprolol Tartrate 50 mg PO DAILY 02/17/18 02/17/18 Unknown History Active Meds: Active Medications Acetaminophen (Tylenol) 650 mg PO Q4H PRN PRN Reason: Pain MILD(1-3)/Fever >100.5/HDEZ Amiodarone HCl (Cordarone) 200 mg PO QDAY [facility] Last Admin: 02/19/18 09:55 Dose: 200 mg Aspirin (Aspirin) 325 mg PO QDAY [facility] Last Admin: 02/19/18 09:55 Dose: 325 mg Bisacodyl (Dulcolax) 10 mg [place] QDAY PRN PRN Reason: Constipation Divalproex Sodium (Depakote Er) [facility] [place] [facility] Admin: 02/19/18 09:55 Dose: 500 mg Divalproex Sodium (Depakote Er) 250 mg PO QHS [facility] Last Admin: 02/18/18 22:16 Dose: 250 mg Divalproex Sodium (Depakote Er) 500 mg PO QHS [facility] Last Admin: 02/18/18 22:16 Dose: 500 mg Docusate Sodium (Colace) 100 mg PO BID [facility] Last Admin: 02/19/18 09:55 Dose: 100 mg Donepezil HCl (Aricept) 10 mg PO DAILY [facility] Last Admin: 02/19/18 09:55 Dose: 10 mg Piperacillin Sod/Tazobactam Sod (Zosyn/Ns 3.375gm/50ml) 3.375 gm in 50 mls @ 100 mls/hr IV Q6HR [facility] Last Admin: 02/19/18 11:45 Dose: 100 mls/hr Sodium Chloride (Nacl 0.9% 1000 Ml) 1,000 mls @ 75 mls/hr IV DIRECT [facility] Last Admin: 02/19/18 07:15 Dose: 75 mls/hr Magnesium Hydroxide (Milk Of Magnesia) 30 ml PO Q4H PRN PRN Reason: Constipation Metoprolol Tartrate (Lopressor) 2.5 mg IV Q6HR PRN PRN Reason: heart rate greater than 130 Metoprolol Tartrate (Lopressor) 25 mg PO Q6HR [facility] Last Admin: 02/19/18 11:45 Dose: 25 mg Morphine Sulfate (Morphine) 2 mg IV Q4H PRN PRN Reason: Pain, Moderate (4-6) Last Admin: 02/18/18 01:05 Dose: 2 mg Ondansetron HCl (Zofran) 4 mg IV Q8H PRN PRN Reason: Nausea And Vomiting Sodium Chloride (Sodium Chloride Flush Syringe 10 Ml) 10 ml IV BID [facility] Last Admin: 02/19/18 09:56 Dose: 10 ml Sodium Chloride (Sodium Chloride Flush Syringe 10 Ml) 10 ml IV PRN PRN PRN Reason: LINE FLUSH Last Admin: 02/17/18 21:12 Dose: 10 ml Tamsulosin HCl (Flomax) 0.4 mg PO QDAY [facility] Last Admin: 02/19/18 09:55 Dose: 0.4 mg Physical Examination - Physical Exam Narrative exam: General appearance: Alert in NAD, conversant Eyes: anicteric sclerae, moist conjunctivae; no lid-lag; left iris deformity HENT: Atraumatic; oropharynx clear. Neck: Trachea midline; supple, no thyromegaly or lymphadenopathy Lungs: CTA, with normal respiratory effort and no intercostal retractions CV: RRR, no murmurs Abdomen: Soft, non-tender Extremities: No peripheral edema or extremity lymphadenopathy Skin: Normal temperature, turgor and texture; no rash, ulcers or subcutaneous nodules Psych: alert non verbal. Neuro: alert and oriented x 3. Moving all extermities Lines: shin - Constitutional Vitals: Vital Signs Temp Pulse Resp BP Pulse Ox 97.8 F 75 22 172/84 97 02/19/18 12:07 02/19/18 12:07 02/19/18 12:07 02/19/18 12:07 02/19/18 12:07 Temperature -Last 24 Hours Temperature 97.8 F Temperature 98.4 F Temperature 98.3 F Temperature 98.3 F Temperature 98.2 F Temperature 98.2 F Results - Labs CBC & Chem 7: 02/19/18 10:58 02/19/18 10:58 Labs: Abnormal lab results 02/19/18 02/19/18 Range/Units 10:58 10:58 RBC 3.53 L (3.65-5.03) M/mm3 Hgb 10.4 L (11.8-15.2) gm/dl Hct 32.2 L (35.5-45.6) % Seg Neuts % (Manual) 80.0 H (40.0-70.0) % Lymphocytes % (Manual) 7.0 L (13.4-35.0) % Monocytes % (Manual) 8.0 H (0.0-7.3) % Eosinophils % (Manual) 5.0 H (0.0-4.3) % Lymphocytes # (Manual) 0.5 L (1.2-5.4) K/mm3 Creatinine 0.7 L (0.8-1.5) mg/dL Glucose 121 H (75-100) mg/dL Calcium 8.1 L (8.4-10.2) mg/dL Assessment and Plan Assessment: 1) Sepsis: Present on admission, manifested by hypotension, leukocytosis, increased lactate. Etiology most likely UTI. 2) Complicated UTI: Secondary to ESBL Escherichia coli. patient with chronic indwelling shin and bilateral kidney stones. -CT of the abdomen show bilateral renal nonobstructive calculi 3) Hypertension 4) Diabetes 5) Seizure 6) Paraplegic 7) Dementia 8) Coronary artery disease 9) History of right ureteral obstruction status post stent placement/removal 2016 10) Jasen atelectasis vs. pneumonia. CXR bibasilar infiltrates. Plan: -follow-up blood cultures, urine culture -stop zosyn -start meropenem -contact isolation -PICC line -upon discharge - ertapenem 1 g IV q day total 14 days until 03/04/18 I will be covering over the phone, call me with questions Thank you for your consultation, will follow up with you. Lisa Rodríguez MD Infectious Diseases Specialist [facility] [phone] O [phone]
[2018-02-19] MEDS: MERREM 1,000 MG in NACL 0.9% 100 ML IV SCH ×2 (15:13→21:53)
[2018-02-20] MEDS: LOPRESSOR PO SCH ×5 (00:15→23:31)
[2018-02-20] MEDS: MERREM 1,000 MG in NACL 0.9% 100 ML IV SCH ×3 (06:04→21:38)
[2018-02-20] MEDS: ARICEPT PO SCH (10:59)
[2018-02-20] MEDS: CORDARONE PO SCH (10:59)
[2018-02-20] MEDS: FLOMAX PO SCH (10:59)
[2018-02-20] MEDS: ASPIRIN PO SCH (10:59)
[2018-02-20] MEDS: COLACE PO SCH ×2 (10:59→21:40)
[2018-02-20] MEDS: SODIUM CHLORIDE FLUSH SYRINGE 10 ML IV SCH ×2 (11:00→21:57)
--- NOTE | 2018-02-20 11:13 | Progress Note ---
Assessment and Plan 1. Paroxysmal atrial fibrillation currently in sinus rhythm. 2. Coronary artery disease stable. 3. Type 2 diabetes mellitus 4. Seizure disorder 5. Dementia 6. Paraplegia Plan. Patient is currently stable echo documents normal global regional LV function. Currently on amiodarone and Toprol will continue present management nor for the cardiac workup indicated Subjective Date of service: 02/20/18 Interval history: Patient is demented Objective Vital Signs Temp Pulse Resp BP BP Pulse Ox 02/20/18 08:59 97.9 F 87 16 131/102 98 02/20/18 04:18 98.4 F 83 18 159/92 98 02/19/18 23:43 98.9 F 80 18 149/95 97 02/19/18 23:02 110 H 02/19/18 20:55 98.1 F 76 20 135/75 90 02/19/18 17:19 74 143/79 02/19/18 17:05 98.0 F 77 22 143/79 95 02/19/18 12:45 98.2 F 71 22 169/88 96 02/19/18 12:07 97.8 F 75 22 172/84 97 02/19/18 11:45 75 172/84 - Physical Examination General: Appears Well, No Apparent Distress HEENT: Positive: PERRL. Negative: Normocephaly, Sinus Tenderness Neck: Positive: neck supple. Negative: JVD/HJR Cardiac: Positive: Regular Rate, S1/S2 Lungs: Positive: clear to auscultation, No Wheeze, Rales, Rhonchi Neuro: Positive: Weakness, Other (See PCP note) Abdomen: Positive: Soft Skin: Positive: Clear Extremities: Absent: edema - Labs and Meds CBC 02/19/18 Range/Units 10:58 WBC 7.7 (4.5-11.0) K/mm3 RBC 3.53 L (3.65-5.03) M/mm3 Hgb 10.4 L (11.8-15.2) gm/dl Hct 32.2 L (35.5-45.6) % Plt Count 155 (140-440) K/mm3 Comprehensive Metabolic Panel 02/19/18 Range/Units 10:58 Sodium 140 (137-145) mmol/L Potassium 4.3 (3.6-5.0) mmol/L Chloride 105.0 (98-107) mmol/L Carbon Dioxide 24 (22-30) mmol/L BUN 13 (9-20) mg/dL Creatinine 0.7 L (0.8-1.5) mg/dL Glucose 121 H (75-100) mg/dL Calcium 8.1 L (8.4-10.2) mg/dL
--- NOTE | 2018-02-20 17:50 | Progress Note ---
Assessment and Plan Assessment and plan: Patient is a 67-year-old man with history of cerebral palsy and chronic indwelling Brody catheter who presented to the emergency department with complaints of hematuria. A. fib with RVR Lopressor and amiodarone will be continued, echo showed a well-preserved left ventricle ejection fraction at 50-55%, and normal left atrial size Cardiology following, Due to his presenting hematuria, advanced age, frail clinical status, we will not recommend oral anticoagulation therapy at this time. UTI culture grew Escherichia coli, ESBL, Zosyn discontinued, Meropenem initiated, ID following -upon discharge - Ertapenem 1 g IV q day total 14 days until , PICC line ordered Case management working on arrangements. Not yet confirmed. Sepsis, community acquired Improving, continue antibiotics and IVF Pneumonia Patient initiated on IV antibiotics, supplemental oxygen and nebulizer therapy as needed, continue Diabetes ADA diet, sliding scale insulin, Accu-Cheks ACHS Seizure Continue Depakote Paraplegia Dementia DVT prophylaxis with SCds. No anticoagulation because of hematuria. History Interval history: Feels better, No chest pain Hospitalist Physical - Physical exam Narrative exam: General:Not in acute distress, lying in bed HEENT:Normocephalic, atraumatic Neck:supple,no JVD Lungs:Clear to auscultation bilat, no rales , no wheeze Heart:S1 and S2 irregular irregular, no murmurs, rubs or gallop Abd: soft, non tender, non distended, normal bowel sounds Ext:no edema, no clubbing or cyanosis Neuro:Awake,alert, paraplegia - Constitutional Vitals: Temp Pulse Resp BP Pulse Ox 100.2 F H 72 16 116/80 96 02/20/18 13:35 02/20/18 13:35 02/20/18 13:35 02/20/18 13:35 02/20/18 13:35 General appearance: Present: other (frail elderly noncommunicative) Results - Labs CBC & Chem 7: 02/19/18 10:58 02/19/18 10:58 Labs: Laboratory Last Values WBC 7.7 K/mm3 (4.5-11.0) 02/19/18 10:58 RBC 3.53 M/mm3 (3.65-5.03) L 02/19/18 10:58 Hgb 10.4 gm/dl (11.8-15.2) L 02/19/18 10:58 Hct 32.2 % (35.5-45.6) L 02/19/18 10:58 MCV 91 fl (84-94) 02/19/18 10:58 MCH 30 pg (28-32) 02/19/18 10:58 MCHC 32 % (32-34) 02/19/18 10:58 RDW 15.1 % (13.2-15.2) 02/19/18 10:58 Plt Count 155 K/mm3 (140-440) 02/19/18 10:58 Lymph % (Auto) 4.0 % (13.4-35.0) L 02/17/18 10:25 [place] % (Auto) 8.9 % (0.0-7.3) H 02/17/18 10:25 Eos % (Auto) 0.7 % (0.0-4.3) 02/17/18 10:25 Baso % (Auto) 0.2 % (0.0-1.8) 02/17/18 10:25 Lymph # 0.6 K/mm3 (1.2-5.4) L 02/17/18 10:25 [place] # 1.4 K/mm3 (0.0-0.8) H 02/17/18 10:25 Eos # 0.1 K/mm3 (0.0-0.4) 02/17/18 10:25 Baso # 0.0 K/mm3 (0.0-0.1) 02/17/18 10:25 Add Manual Diff Complete 02/19/18 10:58 Total Counted 100 02/19/18 10:58 Seg Neutrophils % 86.2 % (40.0-70.0) H 02/17/18 10:25 Seg Neuts % (Manual) 80.0 % (40.0-70.0) H 02/19/18 10:58 Band Neutrophils % 0 % 02/19/18 10:58 Lymphocytes % (Manual) 7.0 % (13.4-35.0) L 02/19/18 10:58 Reactive Lymphs % (Man) 0 % 02/19/18 10:58 Monocytes % (Manual) 8.0 % (0.0-7.3) H 02/19/18 10:58 Eosinophils % (Manual) 5.0 % (0.0-4.3) H 02/19/18 10:58 Basophils % (Manual) 0 % (0.0-1.8) 02/19/18 10:58 Metamyelocytes % 0 % 02/19/18 10:58 Myelocytes % 0 % 02/19/18 10:58 Promyelocytes % 0 % 02/19/18 10:58 Blast Cells % 0 % 02/19/18 10:58 Nucleated RBC % Not Reportable 02/19/18 10:58 Seg Neutrophils # 13.9 K/mm3 (1.8-7.7) H 02/17/18 10:25 Seg Neutrophils # Man 6.2 K/mm3 (1.8-7.7) 02/19/18 10:58 Band Neutrophils # 0.0 K/mm3 02/19/18 10:58 Lymphocytes # (Manual) 0.5 K/mm3 (1.2-5.4) L 02/19/18 10:58 Abs React Lymphs (Man) 0.0 K/mm3 02/19/18 10:58 Monocytes # (Manual) 0.6 K/mm3 (0.0-0.8) 02/19/18 10:58 Eosinophils # (Manual) 0.4 K/mm3 (0.0-0.4) 02/19/18 10:58 Basophils # (Manual) 0.0 K/mm3 (0.0-0.1) 02/19/18 10:58 Metamyelocytes # 0.0 K/mm3 02/19/18 10:58 Myelocytes # 0.0 K/mm3 02/19/18 10:58 Promyelocytes # 0.0 K/mm3 02/19/18 10:58 Blast Cells # 0.0 K/mm3 02/19/18 10:58 WBC Morphology Not Reportable 02/19/18 10:58 Hypersegmented Neuts Not Reportable 02/19/18 10:58 Hyposegmented Neuts Not Reportable 02/19/18 10:58 Hypogranular Neuts Not Reportable 02/19/18 10:58 Smudge Cells Not Reportable 02/19/18 10:58 Toxic Granulation Not Reportable 02/19/18 10:58 Toxic Vacuolation Not Reportable 02/19/18 10:58 Dohle Bodies Not Reportable 02/19/18 10:58 Pelger-Huet Anomaly Not Reportable 02/19/18 10:58 Rupal Rods Not Reportable 02/19/18 10:58 Platelet Estimate Appears normal 02/19/18 10:58 Clumped Platelets Not Reportable 02/19/18 10:58 Plt Clumps, EDTA Not Reportable 02/19/18 10:58 Large Platelets Not Reportable 02/19/18 10:58 Giant Platelets Not Reportable 02/19/18 10:58 Platelet Satelliting Not Reportable 02/19/18 10:58 Plt Morphology Comment Not Reportable 02/19/18 10:58 RBC Morphology Not Reportable 02/19/18 10:58 Dimorphic RBCs Not Reportable 02/19/18 10:58 Polychromasia Not Reportable 02/19/18 10:58 Hypochromasia Not Reportable 02/19/18 10:58 Poikilocytosis Not Reportable 02/19/18 10:58 Anisocytosis 1+ 02/19/18 10:58 Microcytosis Not Reportable 02/19/18 10:58 Macrocytosis Not Reportable 02/19/18 10:58 Spherocytes Not Reportable 02/19/18 10:58 Pappenheimer Bodies Not Reportable 02/19/18 10:58 Sickle Cells Not Reportable 02/19/18 10:58 Target Cells Not Reportable 02/19/18 10:58 Tear Drop Cells Not Reportable 02/19/18 10:58 Ovalocytes 1+ 02/19/18 10:58 Helmet Cells Rare 02/19/18 10:58 Ji-[place] Bodies Not Reportable 02/19/18 10:58 [place] Rings Not Reportable 02/19/18 10:58 [place] Cells Not Reportable 02/19/18 10:58 Bite Cells Not Reportable 02/19/18 10:58 Crenated Cell Not Reportable 02/19/18 10:58 Elliptocytes Few 02/19/18 10:58 Acanthocytes (Spur) Not Reportable 02/19/18 10:58 Rouleaux Not Reportable 02/19/18 10:58 Hemoglobin C Crystals Not Reportable 02/19/18 10:58 Schistocytes Not Reportable 02/19/18 10:58 Malaria parasites Not Reportable 02/19/18 10:58 Berny Bodies Not Reportable 02/19/18 10:58 Hem Pathologist Commnt No 02/19/18 10:58 PT 15.9 Sec. (12.2-14.9) H 02/16/18 17:48 INR 1.20 (0.87-1.13) H 02/16/18 17:48 Sodium 140 mmol/L (137-145) 02/19/18 10:58 Potassium 4.3 mmol/L (3.6-5.0) 02/19/18 10:58 Chloride 105.0 mmol/L (98-107) 02/19/18 10:58 Carbon Dioxide 24 mmol/L (22-30) 02/19/18 10:58 Anion Gap 15 mmol/L 02/19/18 10:58 BUN 13 mg/dL (9-20) 02/19/18 10:58 Creatinine 0.7 mg/dL (0.8-1.5) L 02/19/18 10:58 Estimated GFR > 60 ml/min 02/19/18 10:58 BUN/Creatinine Ratio 19 % 02/19/18 10:58 Glucose 121 mg/dL (75-100) H 02/19/18 10:58 POC Glucose 109 (70-105) H 02/16/18 20:59 Lactic Acid 1.30 mmol/L (0.7-2.0) 02/17/18 13:09 Calcium 8.1 mg/dL (8.4-10.2) L 02/19/18 10:58 Total Bilirubin 0.20 mg/dL (0.1-1.2) 02/16/18 17:48 AST 11 units/L (5-40) 02/16/18 17:48 ALT 6 units/L (7-56) L 02/16/18 17:48 Alkaline Phosphatase 65 units/L (35-129) 02/16/18 17:48 Total Creatine Kinase 29 units/L (55-170) L 02/17/18 10:25 CK-MB (CK-2) < 1.0 ng/mL (0.0-4.0) 02/17/18 10:25 CK-MB (CK-2) Rel Index 3.4 (0-4) 02/17/18 10:25 Troponin T 0.011 ng/mL (0.00-0.029) 02/17/18 10:25 Total Protein 7.1 g/dL (6.3-8.2) 02/16/18 17:48 Albumin 2.8 g/dL (3.9-5) L 02/16/18 17:48 Albumin/Globulin Ratio 0.7 % 02/16/18 17:48 TSH 2.520 mlU/mL (0.270-4.200) 02/17/18 10:25 Urine Color Red (Yellow) 02/16/18 19:20 Urine Turbidity Clear (Clear) 02/16/18 19:20 Urine pH 6.0 (5.0-7.0) 02/16/18 19:20 Ur Specific [place] 1.015 (1.003-1.030) 02/16/18 19:20 Urine Protein 100 mg/dl mg/dL (Negative) 02/16/18 19:20 Urine Glucose (UA) Neg mg/dL (Negative) 02/16/18 19:20 Urine Ketones Neg mg/dL (Negative) 02/16/18 19:20 Urine Blood Lg (Negative) 02/16/18 19:20 Urine Nitrite Pos (Negative) 02/16/18 19:20 Urine Bilirubin Neg (Negative) 02/16/18 19:20 Urine Urobilinogen 2.0 mg/dL (<2.0) 02/16/18 19:20 Ur Leukocyte Esterase Lg (Negative) 02/16/18 19:20 Urine WBC (Auto) 85.0 /HPF (0.0-6.0) H 02/16/18 19:20 Urine RBC (Auto) > 182.0 /HPF (0.0-6.0) 02/16/18 19:20 U Epithel Cells (Auto) 1.0 /HPF (0-13.0) 02/16/18 19:20 Urine Bacteria (Auto) 1+ /HPF (Negative) 02/16/18 19:20
[2018-02-20] MEDS: NACL 0.9% 1000 ML 1,000 ML IV SCH (21:39)
[2018-02-20] MEDS: SODIUM CHLORIDE FLUSH SYRINGE 10 ML IV PRN (23:32)
[2018-02-21] MEDS: LOPRESSOR PO SCH ×3 (05:36→18:21)
[2018-02-21] MEDS: MERREM 1,000 MG in NACL 0.9% 100 ML IV SCH ×3 (05:36→22:40)
[2018-02-21] MEDS: COLACE PO SCH ×2 (09:18→22:40)
[2018-02-21] MEDS: ARICEPT PO SCH (09:19)
[2018-02-21] MEDS: FLOMAX PO SCH (09:19)
[2018-02-21] MEDS: CORDARONE PO SCH (09:19)
[2018-02-21] MEDS: ASPIRIN PO SCH (09:19)
[2018-02-21] MEDS: SODIUM CHLORIDE FLUSH SYRINGE 10 ML IV SCH ×2 (09:46→22:29)
--- NOTE | 2018-02-21 11:10 | Progress Note ---
Assessment and Plan 1. Paroxysmal atrial fibrillation currently in sinus rhythm. 2. Coronary artery disease stable. 3. Type 2 diabetes mellitus 4. Seizure disorder 5. Dementia 6. Paraplegia Plan. Patient is currently stable echo documents normal global regional LV function. Currently on Amiodarone and Toprol will continue present management no further the cardiac workup indicated Subjective Date of service: 02/21/18 Interval history: Patient is demented Objective Vital Signs Temp Pulse Pulse Resp BP BP Pulse Ox 02/21/18 10:00 80 02/21/18 05:23 98.6 F 82 18 149/91 100 02/21/18 00:15 98.5 F 61 18 138/90 93 02/20/18 23:00 76 02/20/18 21:01 98.0 F 71 20 125/74 92 02/20/18 15:40 98.0 F 118 H 20 133/90 98 02/20/18 13:35 100.2 F H 72 16 116/80 96 - Physical Examination General: Appears Well, No Apparent Distress HEENT: Positive: PERRL. Negative: Normocephaly, Sinus Tenderness Neck: Positive: neck supple. Negative: JVD/HJR Cardiac: Positive: Regular Rate, S1/S2, PMI, Laterally Displaced Lungs: Positive: clear to auscultation, No Wheeze, Rales, Rhonchi Neuro: Positive: Weakness, Other (See PCP note) Abdomen: Positive: Soft Skin: Positive: Clear Extremities: Absent: edema
--- NOTE | 2018-02-21 12:31 | Progress Note ---
Assessment and Plan Assessment and plan: Patient is a 67-year-old man with history of cerebral palsy and chronic indwelling Brody catheter who presented to the emergency department with complaints of hematuria. A. fib with RVR Lopressor and amiodarone will be continued, echo showed a well-preserved left ventricle ejection fraction at 50-55%, and normal left atrial size Cardiology following, Due to his presenting hematuria, advanced age, frail clinical status, we will not recommend oral anticoagulation therapy at this time. UTI culture grew Escherichia coli, ESBL, Zosyn discontinued, Meropenem initiated, ID following -upon discharge - Ertapenem 1 g IV q day total 14 days until , PICC line ordered Case management working on arrangements. Not yet confirmed. Sepsis, community acquired Improving, continue antibiotics and IVF Pneumonia Patient initiated on IV antibiotics, supplemental oxygen and nebulizer therapy as needed, continue Diabetes ADA diet, sliding scale insulin, Accu-Cheks ACHS Seizure Continue Depakote Paraplegia Dementia DVT prophylaxis with SCDs. No anticoagulation because of hematuria. Likely dc home tomorrow, hopefully Antibiotics will be arranged by then. History Interval history: Feels better, No chest pain, wants to go home Hospitalist Physical - Physical exam Narrative exam: General:Not in acute distress, lying in bed HEENT:Normocephalic, atraumatic Neck:supple,no JVD Lungs:Clear to auscultation bilat, no rales , no wheeze Heart:S1 and S2 irregular irregular, no murmurs, rubs or gallop Abd: soft, non tender, non distended, normal bowel sounds Ext:no edema, no clubbing or cyanosis Neuro:Awake,alert, paraplegia - Constitutional Vitals: Temp Pulse Resp BP Pulse Ox 98.6 F 80 18 149/91 100 02/21/18 05:23 02/21/18 10:00 02/21/18 05:23 02/21/18 05:23 02/21/18 05:23 General appearance: Present: other (frail elderly noncommunicative) Results - Labs CBC & Chem 7: 02/19/18 10:58 02/19/18 10:58 Labs: Laboratory Last Values WBC 7.7 K/mm3 (4.5-11.0) 02/19/18 10:58 RBC 3.53 M/mm3 (3.65-5.03) L 04/27/18 10:58 Hgb 10.4 gm/dl (11.8-15.2) L 02/19/18 10:58 Hct 32.2 % (35.5-45.6) L 02/19/18 10:58 MCV 91 fl (84-94) 02/19/18 10:58 MCH 30 pg (28-32) 02/19/18 10:58 MCHC 32 % (32-34) 02/19/18 10:58 RDW 15.1 % (13.2-15.2) 02/19/18 10:58 Plt Count 155 K/mm3 (140-440) 02/19/18 10:58 Lymph % (Auto) 4.0 % (13.4-35.0) L 02/17/18 10:25 [place] % (Auto) 8.9 % (0.0-7.3) H 02/17/18 10:25 Eos % (Auto) 0.7 % (0.0-4.3) 02/17/18 10:25 Baso % (Auto) 0.2 % (0.0-1.8) 02/17/18 10:25 Lymph # 0.6 K/mm3 (1.2-5.4) L 02/17/18 10:25 [place] # 1.4 K/mm3 (0.0-0.8) H 02/17/18 10:25 Eos # 0.1 K/mm3 (0.0-0.4) 02/17/18 10:25 Baso # 0.0 K/mm3 (0.0-0.1) 02/17/18 10:25 Add Manual Diff Complete 02/19/18 10:58 Total Counted 100 02/19/18 10:58 Seg Neutrophils % 86.2 % (40.0-70.0) H 02/17/18 10:25 Seg Neuts % (Manual) 80.0 % (40.0-70.0) H 02/19/18 10:58 Band Neutrophils % 0 % 02/19/18 10:58 Lymphocytes % (Manual) 7.0 % (13.4-35.0) L 02/19/18 10:58 Reactive Lymphs % (Man) 0 % 02/19/18 10:58 Monocytes % (Manual) 8.0 % (0.0-7.3) H 02/19/18 10:58 Eosinophils % (Manual) 5.0 % (0.0-4.3) H 02/19/18 10:58 Basophils % (Manual) 0 % (0.0-1.8) 02/19/18 10:58 Metamyelocytes % 0 % 02/19/18 10:58 Myelocytes % 0 % 02/19/18 10:58 Promyelocytes % 0 % 02/19/18 10:58 Blast Cells % 0 % 02/19/18 10:58 Nucleated RBC % Not Reportable 02/19/18 10:58 Seg Neutrophils # 13.9 K/mm3 (1.8-7.7) H 02/17/18 10:25 Seg Neutrophils # Man 6.2 K/mm3 (1.8-7.7) 02/19/18 10:58 Band Neutrophils # 0.0 K/mm3 02/19/18 10:58 Lymphocytes # (Manual) 0.5 K/mm3 (1.2-5.4) L 02/19/18 10:58 Abs React Lymphs (Man) 0.0 K/mm3 02/19/18 10:58 Monocytes # (Manual) 0.6 K/mm3 (0.0-0.8) 02/19/18 10:58 Eosinophils # (Manual) 0.4 K/mm3 (0.0-0.4) 02/19/18 10:58 Basophils # (Manual) 0.0 K/mm3 (0.0-0.1) 02/19/18 10:58 Metamyelocytes # 0.0 K/mm3 02/19/18 10:58 Myelocytes # 0.0 K/mm3 02/19/18 10:58 Promyelocytes # 0.0 K/mm3 02/19/18 10:58 Blast Cells # 0.0 K/mm3 02/19/18 10:58 WBC Morphology Not Reportable 02/19/18 10:58 Hypersegmented Neuts Not Reportable 02/19/18 10:58 Hyposegmented Neuts Not Reportable 02/19/18 10:58 Hypogranular Neuts Not Reportable 02/19/18 10:58 Smudge Cells Not Reportable 02/19/18 10:58 Toxic Granulation Not Reportable 02/19/18 10:58 Toxic Vacuolation Not Reportable 02/19/18 10:58 Dohle Bodies Not Reportable 02/19/18 10:58 Pelger-Huet Anomaly Not Reportable 02/19/18 10:58 Rupal Rods Not Reportable 02/19/18 10:58 Platelet Estimate Appears normal 02/19/18 10:58 Clumped Platelets Not Reportable 02/19/18 10:58 Plt Clumps, EDTA Not Reportable 02/19/18 10:58 Large Platelets Not Reportable 02/19/18 10:58 Giant Platelets Not Reportable 02/19/18 10:58 Platelet Satelliting Not Reportable 02/19/18 10:58 Plt Morphology Comment Not Reportable 02/19/18 10:58 RBC Morphology Not Reportable 02/19/18 10:58 Dimorphic RBCs Not Reportable 02/19/18 10:58 Polychromasia Not Reportable 02/19/18 10:58 Hypochromasia Not Reportable 02/19/18 10:58 Poikilocytosis Not Reportable 02/19/18 10:58 Anisocytosis 1+ 02/19/18 10:58 Microcytosis Not Reportable 02/19/18 10:58 Macrocytosis Not Reportable 02/19/18 10:58 Spherocytes Not Reportable 02/19/18 10:58 Pappenheimer Bodies Not Reportable 02/19/18 10:58 Sickle Cells Not Reportable 02/19/18 10:58 Target Cells Not Reportable 02/19/18 10:58 Tear Drop Cells Not Reportable 02/19/18 10:58 Ovalocytes 1+ 02/19/18 10:58 Helmet Cells Rare 02/19/18 10:58 Ji[place] Bodies Not Reportable 02/19/18 10:58 [place] Rings Not Reportable 02/19/18 10:58 [place] Cells Not Reportable 02/19/18 10:58 Bite Cells Not Reportable 02/19/18 10:58 Crenated Cell Not Reportable 02/19/18 10:58 Elliptocytes Few 02/19/18 10:58 Acanthocytes (Spur) Not Reportable 02/19/18 10:58 Rouleaux Not Reportable 02/19/18 10:58 Hemoglobin C Crystals Not Reportable 02/19/18 10:58 Schistocytes Not Reportable 02/19/18 10:58 Malaria parasites Not Reportable 02/19/18 10:58 Berny Bodies Not Reportable 02/19/18 10:58 Hem Pathologist Commnt No 02/19/18 10:58 PT 15.9 Sec. (12.2-14.9) H 02/16/18 17:48 INR 1.20 (0.87-1.13) H 02/16/18 17:48 Sodium 140 mmol/L (137-145) 02/19/18 10:58 Potassium 4.3 mmol/L (3.6-5.0) 02/19/18 10:58 Chloride 105.0 mmol/L (98-107) 02/19/18 10:58 Carbon Dioxide 24 mmol/L (22-30) 02/19/18 10:58 Anion Gap 15 mmol/L 02/19/18 10:58 BUN 13 mg/dL (9-20) 02/19/18 10:58 Creatinine 0.7 mg/dL (0.8-1.5) L 02/19/18 10:58 Estimated GFR > 60 ml/min 02/19/18 10:58 BUN/Creatinine Ratio 19 % 02/19/18 10:58 Glucose 121 mg/dL (75-100) H 02/19/18 10:58 POC Glucose 99 (70-105) 02/21/18 11:21 Lactic Acid 1.30 mmol/L (0.7-2.0) 02/17/18 13:09 Calcium 8.1 mg/dL (8.4-10.2) L 02/19/18 10:58 Total Bilirubin 0.20 mg/dL (0.1-1.2) 02/16/18 17:48 AST 11 units/L (5-40) 02/16/18 17:48 ALT 6 units/L (7-56) L 02/16/18 17:48 Alkaline Phosphatase 65 units/L (35-129) 02/16/18 17:48 Total Creatine Kinase 29 units/L (55-170) L 02/17/18 10:25 CK-MB (CK-2) < 1.0 ng/mL (0.0-4.0) 02/17/18 10:25 CK-MB (CK-2) Rel Index 3.4 (0-4) 02/17/18 10:25 Troponin T 0.011 ng/mL (0.00-0.029) 02/17/18 10:25 Total Protein 7.1 g/dL (6.3-8.2) 02/16/18 17:48 Albumin 2.8 g/dL (3.9-5) L 02/16/18 17:48 Albumin/Globulin Ratio 0.7 % 02/16/18 17:48 TSH 2.520 mlU/mL (0.270-4.200) 02/17/18 10:25 Urine Color Red (Yellow) 02/16/18 19:20 Urine Turbidity Clear (Clear) 02/16/18 19:20 Urine pH 6.0 (5.0-7.0) 02/16/18 19:20 Ur Specific [place] 1.015 (1.003-1.030) 02/16/18 19:20 Urine Protein 100 mg/dl mg/dL (Negative) 02/16/18 19:20 Urine Glucose (UA) Neg mg/dL (Negative) 02/16/18 19:20 Urine Ketones Neg mg/dL (Negative) 02/16/18 19:20 Urine Blood Lg (Negative) 02/16/18 19:20 Urine Nitrite Pos (Negative) 02/16/18 19:20 Urine Bilirubin Neg (Negative) 02/16/18 19:20 Urine Urobilinogen 2.0 mg/dL (<2.0) 02/16/18 19:20 Ur Leukocyte Esterase Lg (Negative) 02/16/18 19:20 Urine WBC (Auto) 85.0 /HPF (0.0-6.0) H 02/16/18 19:20 Urine RBC (Auto) > 182.0 /HPF (0.0-6.0) 02/16/18 19:20 U Epithel Cells (Auto) 1.0 /HPF (0-13.0) 02/16/18 19:20 Urine Bacteria (Auto) 1+ /HPF (Negative) 02/16/18 19:20
[2018-02-21] MEDS: NACL 0.9% 1000 ML 1,000 ML IV SCH (18:22)
[2018-02-22] MEDS: LOPRESSOR PO SCH ×4 (02:01→23:55)
[2018-02-22] MEDS: MERREM 1,000 MG in NACL 0.9% 100 ML IV SCH ×3 (05:40→23:54)
--- NOTE | 2018-02-22 10:06 | Progress Note ---
Assessment and Plan Assessment: 1) Sepsis: Present on admission, manifested by hypotension, leukocytosis, increased lactate. Etiology most likely UTI. 2) Complicated UTI: Secondary to ESBL Escherichia coli. patient with chronic indwelling shin and bilateral kidney stones. -CT of the abdomen show bilateral renal nonobstructive calculi 3) Hypertension 4) Diabetes 5) Seizure 6) Paraplegic 7) Dementia 8) Coronary artery disease 9) History of right ureteral obstruction status post stent placement/removal 2016 10) Jasen atelectasis vs. pneumonia. CXR bibasilar infiltrates. Plan: -continue meropenem -contact isolation -PICC line -upon discharge - ertapenem 1 g IV q day total 14 days until 03/04/18. Orders sent to cyanide case hardener. Thank you for your consultation, will follow up with you. Lisa Rodríguez MD Infectious Diseases Specialist [facility] ([facility]) M [phone] O [phone] Subjective Date of service: 02/22/18 Principal diagnosis: UTI Interval history: More alert talking ferris snot want to be bothered, no fever Microbiology: Blood cultures: 02/16 neg Urine cultures: 02/16 ESBL E coli Current Antimicrobials: meropenem 02/19 Previous Antimicrobials: Zosyn 02/16 Objective - Exam Narrative Exam: General appearance: Alert in NAD, conversant Eyes: anicteric sclerae, moist conjunctivae; no lid-lag; left iris deformity HENT: Atraumatic; oropharynx clear. Neck: Trachea midline; supple, no thyromegaly or lymphadenopathy Lungs: CTA, with normal respiratory effort and no intercostal retractions CV: RRR, no murmurs Abdomen: Soft, non-tender Extremities: No peripheral edema or extremity lymphadenopathy Skin: stage II sacral not infected Psych: alert non verbal. Neuro: alert Lines: shin - Constitutional Vitals: Vital Signs Temp Pulse Resp BP Pulse Ox 97.4 F L 66 20 153/68 95 02/22/18 08:00 02/22/18 08:00 02/22/18 08:00 02/22/18 08:00 02/22/18 08:00 Temperature -Last 24 Hours Temperature 97.4 F Temperature 98.3 F Temperature 98.8 F Temperature 98.6 F Temperature 98.5 F Temperature 97.9 F - Labs CBC & Chem 7: 02/19/18 10:58 02/19/18 10:58
[2018-02-22] MEDS: FLOMAX PO SCH (11:03)
[2018-02-22] MEDS: ASPIRIN PO SCH (11:03)
[2018-02-22] MEDS: ARICEPT PO SCH (11:04)
[2018-02-22] MEDS: COLACE PO SCH ×2 (11:04→23:56)
[2018-02-22] MEDS: CORDARONE PO SCH (11:05)
[2018-02-22] MEDS: SODIUM CHLORIDE FLUSH SYRINGE 10 ML IV SCH ×2 (11:05→23:56)
[2018-02-22] MEDS: NACL 0.9% 1000 ML 1,000 ML IV SCH (12:06)
--- NOTE | 2018-02-22 14:18 | Progress Note ---
Assessment and Plan Hematuria UTI -ecoli Paroxysmal atrial fibrillation, uncertain duration currently in sinus rhythm normal TSH on amiodarone and metoprolol for suppression. eue to his presenting hematuria, advanced age, frail clinical status, we will not recommend oral anticoagulation therapy at this time. Dementia An echocardiogram demonstrates a well-preserved left ventricle ejection fraction at 50-55%, and normal left atrial size. Plan: We will increase beta yair therapy to suppress his paroxysmal afib. Subjective Date of service: 02/22/18 Principal diagnosis: UTI Interval history: Intermittent atrial fibrillation seen on telemetry monitoring overnight. Currently patient is in a stable sinus rhythm. Objective Vital Signs Temp Pulse Resp BP BP Pulse Ox 02/22/18 08:00 97.4 F L 66 20 153/68 95 02/22/18 04:20 98.3 F 85 18 134/73 95 02/22/18 00:00 80 20 134/78 93 02/21/18 19:47 98.8 F 74 20 139/67 91 02/21/18 18:21 148/78 02/21/18 17:01 98.6 F 77 20 158/78 97 - Physical Examination General: No Apparent Distress Cardiac: Positive: Reg Rate and Rhythm
--- NOTE | 2018-02-22 14:53 | Discharge Summary ---
Providers - Providers Date of Admission: 02/16/18 22:54 Date of discharge: 02/22/18 Attending physician: SOCORRO CRISTOBAL 02/17/18 08:39 Consult to Physician [CONS] Routine Comment: Consulting Provider: JOSETTE ADAMS Physician Instructions: Reason For Exam: Gross hematuria 02/18/18 03:20 Consult to Wound/ET Nurse [CONS] Routine Reason For Exam: wound eval/ sacral 02/18/18 13:04 Consult to Physician [CONS] Routine Comment: Consulting Provider: DAVID RODRIGEZ Physician Instructions: Reason For Exam: A fib 02/19/18 10:06 Consult to Physician [CONS] Routine Comment: Consulting Provider: LISA MARTINEZ Physician Instructions: Reason For Exam: ESBL 02/19/18 13:52 Consult to PICC Line RN [CONS] Stat Reason For Exam: IV antibiotics Type Line:: PICC 02/19/18 13:53 Consult to Case Management [CONS] Stat Services Needed at Discharge: Other Notified:: education rep Additional Physician Instructions: [facility] ([facility] M [phone] O [phone] F [phone] OUTPATIENT PARENTERAL ANTIBIOTIC THERAPY ORDERS Diagnoses: Complicated ESBL E coli UTI Antimicrobial administration: ertapenem 1 g IV q day total 14 days until 03/04/18. Remove PICC line after last dose unless otherwise instructed. Lines: PICC Lab monitoring: CBC, CMP, CRP once a week preferly on Thursday morning. Please fax results to [phone] and call [phone] for critical lab results. Lisa Mills Date: 02/19/18 Primary care physician: MARYCRUZ PALOMARES Hospitalization Condition: Stable Pertinent studies: echocardiogram demonstrates a well-preserved left ventricle ejection fraction at 50-55%, and normal left atrial size. Hospital course: Patient is a 67-year-old man with history of cerebral palsy and chronic indwelling Brody catheter who presented to the emergency department with complaints of hematuria. Patient was found to have growth hematuria , pneumonia and sepsis secondary to UTI on admission. Urologist Dr Adams was consulted. Patient is well known to him and no intervention was recommended at this time. Patient's urine culture was positive for Escherichia coli and infectious disease was consulted. Patient was placed on appropriate antibiotics with IV antibiotic therapy to be continued as an outpatient. PICC line was placed and patient was stable for discharge. Patient will follow up as outpatient with urology. Patient was found to have atrial fibrillation with RVR and cardiology services was consulted. Lopressor and amiodarone were initiated and patient was discharged with same. Patient will continue all other outpatient medications and follow up with a primary care provider within 1 week of discharge. Discharge diagnoses A. fib with RVR Lopressor and amiodarone, Due to his presenting hematuria, advanced age, frail clinical status, we will not recommend oral anticoagulation therapy at this time. UTI culture grew Escherichia coli, ESBL upon discharge - ertapenem 1 g IV q day total 14 days until 03/04/18 Sepsis, community acquired Pneumonia Diabetes Seizure Paraplegia Dementia Disposition: DC/[place]-03 [facility] Time spent for discharge: 32 minutes Core Measure Documentation - Palliative Care Palliative Care/ Comfort Measures: Not Applicable - Core Measures Any of the following diagnoses?: none Exam - Physical Exam Narrative exam: General appearance: Present: no acute distress, well-nourished - EENT Eyes: Present: right pupil enucleated, left pupil non reactive to light ENT: hearing intact, clear oral mucosa - Neck Neck: Present: supple, normal ROM - Respiratory Respiratory effort: normal Respiratory: bilateral: CTA - Cardiovascular Rhythm: regular Heart Sounds: Present: S1 & S2 - Extremities Extremities: no ischemia, No edema - Abdominal General gastrointestinal: soft, non-tender, non-distended - Integumentary Integumentary: Present: nodules on chest wall, warm, dry -Genitourinary Indwelling Brody catheter is present - Psychiatric Psychiatric: cooperative - Neurologic Neurologic: Paraplegic, moves upper extremities - Constitutional Vitals: Temp Pulse Resp BP Pulse Ox 97.4 F L 66 20 153/68 95 02/22/18 08:00 02/22/18 08:00 02/22/18 08:00 02/22/18 08:00 02/22/18 08:00 Plan Follow up with: MARYCRUZ PALOMARES MD [Primary Care Provider] - 3-5 Days JOSETTE ADAMS MD [Staff Physician] - 7 Days Prescriptions: Ertapenem (Nf) [INVanz] 1 gm IV QDAY #10 vial
--- NOTE | 2018-02-22 16:28 | XRay Report ---
FINAL REPORT EXAM: XR CHEST 1V AP HISTORY: L arm PICC placement TECHNIQUE: Frontal chest radiograph. PRIORS: 02/16/2018. FINDINGS: A left upper extremity PICC is present with the tip lying in the lower SVC. Mild diffuse increased interstitial opacities are seen. The cardiomediastinal silhouette is normal. No focal consolidation. No pleural effusion. No pneumothorax. No acute osseous abnormality. IMPRESSION: 1. Left upper extremity PICC tip lying in the lower SVC. 2. Interstitial opacities may represent pulmonary edema versus atypical pneumonia.
[2018-02-23] MEDS: NACL 0.9% 1000 ML 1,000 ML IV SCH (04:39)
[2018-02-23] MEDS: MERREM 1,000 MG in NACL 0.9% 100 ML IV SCH ×2 (05:46→13:22)
[2018-02-23] MEDS: ASPIRIN PO SCH (10:01)
[2018-02-23] MEDS: FLOMAX PO SCH (10:02)
[2018-02-23] MEDS: ARICEPT PO SCH (10:02)
[2018-02-23] MEDS: COLACE PO SCH (10:02)
[2018-02-23] MEDS: CORDARONE PO SCH (10:03)
[2018-02-23] MEDS: LOPRESSOR PO SCH (10:04)
--- NOTE | 2018-02-23 10:48 | Progress Note ---
Assessment and Plan Assessment: 1) Sepsis: resolved. Etiology most likely UTI. 2) Complicated UTI: Secondary to ESBL Escherichia coli. patient with chronic indwelling shin and bilateral kidney stones. -CT of the abdomen show bilateral renal nonobstructive calculi 3) Hypertension 4) Diabetes 5) Seizure 6) Paraplegic 7) Dementia 8) Coronary artery disease 9) History of right ureteral obstruction status post stent placement/removal 2016 10) Jasen atelectasis vs. pneumonia. CXR bibasilar infiltrates. Plan: -continue meropenem -contact isolation -PICC line -upon discharge - ertapenem 1 g IV q day total 14 days until 03/04/18. Orders sent to manager of case. I am signing off Thank you for your consultation, will follow up with you. Lisa Rodríguez MD Infectious Diseases Specialist [facility] ([facility]) M [phone] O [phone] Subjective Date of service: 02/23/18 Principal diagnosis: UTI Interval history: feels ok no fever. Microbiology: Blood cultures: 02/16 neg Urine cultures: 02/16 ESBL E coli Current Antimicrobials: meropenem 02/19 Previous Antimicrobials: Zosyn 02/16 Objective - Exam Narrative Exam: General appearance: Alert in NAD, conversant Eyes: anicteric sclerae, moist conjunctivae; no lid-lag; left iris deformity HENT: Atraumatic; oropharynx clear. Neck: Trachea midline; supple, no thyromegaly or lymphadenopathy Lungs: CTA, with normal respiratory effort and no intercostal retractions CV: RRR, no murmurs Abdomen: Soft, non-tender Extremities: No peripheral edema or extremity lymphadenopathy Skin: stage II sacral not infected Psych: alert non verbal. Neuro: alert Lines: shin - Constitutional Vitals: Vital Signs Temp Pulse Resp BP Pulse Ox 99.3 F 74 18 133/77 99 02/23/18 08:25 02/23/18 10:04 02/23/18 08:25 02/23/18 10:04 02/23/18 08:25 Temperature -Last 24 Hours Temperature 99.3 F Temperature 97.8 F Temperature 98.7 F - Labs CBC & Chem 7: 02/19/18 10:58 02/19/18 10:58 Labs: Abnormal lab results 02/22/18 Range/Units 12:02 POC Glucose 109 H (70-105)
--- NOTE | 2018-02-23 12:55 | Event Note ---
Date: 02/23/18 Patient seen and examined, vitals, nursing note noted Discussed with the manager case "PICC line got placed yesterday and ready to use. he was discharged yesterday but discharge was delayed due to PICC line placement. He is stable to discharge today Please see d/c summary on 02/22/18 for details.
--- NOTE | 2018-02-23 12:58 | Progress Note ---
Assessment and Plan Hematuria UTI -ecoli Paroxysmal atrial fibrillation, uncertain duration currently in sinus rhythm normal TSH on amiodarone and metoprolol for suppression. due to his presenting hematuria, advanced age, frail clinical status, we will not recommend oral anticoagulation therapy at this time. Dementia An echocardiogram demonstrates a well-preserved left ventricle ejection fraction at 50-55%, and normal left atrial size. Plan: Continue medical therapy for suppression of paroxysmal afib. Subjective Date of service: 02/23/18 Principal diagnosis: UTI Interval history: No reported cardiac events on telemetry overnight. Objective Vital Signs Temp Pulse Resp BP BP Pulse Ox 02/23/18 10:04 74 133/77 02/23/18 10:00 99 02/23/18 08:25 99.3 F 74 18 133/77 99 02/22/18 23:00 66 02/22/18 20:34 97.8 F 75 20 132/81 100 02/22/18 19:30 98.7 F 72 18 132/76 100 - Physical Examination General: No Apparent Distress Cardiac: Positive: Reg Rate and Rhythm
[2018-02-23 15:09] VITALS: BP 123/79
[2018-02-23] MEDS: SODIUM CHLORIDE FLUSH SYRINGE 10 ML IV SCH (16:08)
== END 2018-02-23 16:40 | disposition home or self-care (01) | DRG 871 ==
LOC: ED 15:39 → 4A 22:54 → 2B-ACE 02-22 19:00
PROVIDERS: ADMIT Internal Medicine; ATTEND Internal Medicine
PROC: 02HV33Z Insertion of Infusion Device into Superior Vena Cava, Percutaneous Approach (ICD-10-PCS; principal; 2018-02-22)
DX: A41.9 Sepsis, unspecified organism (principal); J18.9 Pneumonia, unspecified organism; G40.909 Epilepsy, unspecified, not intractable, without status epilepticus; G80.9 Cerebral palsy, unspecified; E11.9 Type 2 diabetes mellitus without complications; E86.0 Dehydration; N39.0 Urinary tract infection, site not specified; B96.20 Unspecified Escherichia coli [E. coli] as the cause of diseases classified elsewhere; I10 Essential (primary) hypertension; Z96.0 Presence of urogenital implants; F32.9 Major depressive disorder, single episode, unspecified; F01.50 Vascular dementia, unspecified severity, without behavioral disturbance, psychotic disturbance, mood disturbance, and anxiety; I48.0 Paroxysmal atrial fibrillation; I25.10 Atherosclerotic heart disease of native coronary artery without angina pectoris; Z87.891 Personal history of nicotine dependence; Z79.899 Other long term (current) drug therapy; Z79.82 Long term (current) use of aspirin
CPT/HCPCS: 36415; 71045; 74176; 80048; 80053; 81001; 82140; 82550; 82553; 82962; 84443; 84484; 85007; 85025; 85610; 87040; 87076; 87086; 87186; 93005; 93010; 93306; 96361; 96374; 96375; J0282; J2060; J2185; J2270; J2543; J7030

== ENCOUNTER 2018-03-07 00:51 | Emergency (ER) | payer MEDICARE ==
[2018-03-07 02:18] LABS: Hematocrit 35.5 % (35.5-45.6); Mean Corpuscular HGB Conc 34 % (32-34); Mean Corpuscular Hemoglobin 31 pg (28-32); Mean Corpuscular Volume 92 fl (84-94); Platelet Count 272 K/mm3 (140-440); Red Blood Count 3.87 M/mm3 (3.65-5.03); Red Cell Distribution Width 15.7 % (13.2-15.2)
[2018-03-07 02:29] LABS: BUN/Creatinine Ratio 18; Blood Urea Nitrogen 14 mg/dL (9-20); Calcium 8.6 mg/dL (8.4-10.2); Hemolysis Index 30
[2018-03-07] MEDS ORDERED: DepaCON 500 MG in NACL 0.9% 100 ML IV ONE (02:42)
--- NOTE | 2018-03-07 02:42 | Emergency Department Report ---
ED Seizure HPI - General Chief Complaint: Seizure Stated Complaint: SEIZURE Time Seen by Provider: 03/07/18 01:39 Source: EMS Mode of arrival: Stretcher Limitations: Altered Mental Status - History of Present Illness Initial Comments: 67-year-old male with a past medical history of seizures, vascular dementia, diabetes, hypertension, cerebral palsy, paraplegic, paroxysmal A. fib, and other medical problems as per triage presents to the hospital from half-way with complaints of seizure. custodial staff reported on witnessed seizure however, after EMS arrival patient had additional seizure received Versed 5mg IV prior to transport. Patient is sedated and can not provide any history of present illness. Previous medical record review P patient was medicated with until February 22 for Escherichia coli UTI and discharged with a PICC line and Etapenum. Pt received last dose of 10 day treatment today as per DEC. Patient still has PICC line and Shin catheter. As per previous medical record patient takes Depakote. At his baseline pt can not move his arms or legs but can move his fingers. - Related Data Home Medications Medication Instructions Recorded Confirmed Last Taken Aspirin [Aspirin TAB] 325 mg PO QDAY 03/19/16 03/07/18 1 Day Ago ~03/06/18 Docusate Sodium [Move It Along] 100 mg PO DAILY 03/19/16 03/07/18 04/28/17 Donepezil [Aricept] 10 mg PO QHS 03/19/16 03/07/18 04/28/17 Multivitamin Tab W-MINERAL 1 each PO QD 03/19/16 03/07/18 04/28/17 [Multiple Vitamin/Mineral (Theragran M)] Potassium Chloride [K-Tab ER] 20 meq PO DAILY 03/19/16 03/07/18 04/28/17 Nitro Dur 0.2 mg TRANSDERMA QAM 04/03/16 03/07/18 04/28/17 Sertraline [Zoloft] 100 mg PO QDAY 12/31/16 03/07/18 04/28/17 Tamsulosin [Flomax] 0.4 mg PO QHS 12/31/16 03/07/18 04/28/17 Divalproex ER [Depakote ER] 500 mg PO QAM 02/12/17 03/07/18 04/28/17 Previous Rx's Medication Instructions Recorded Last Taken Type Acetaminophen [Acetaminophen TAB] 650 mg PO Q4H PRN tablet 02/22/18 Unknown Rx Amiodarone [Cordarone 200 MG TAB] 200 mg PO QDAY tablet 02/22/18 Unknown Rx Divalproex ER [Depakote ER] 500 mg PO QHS tablet 02/22/18 Unknown Rx Metoprolol [Lopressor TAB] 75 mg PO BID tablet 02/22/18 Unknown Rx Ertapenem (Nf) [INVanz] 1 gm IV QDAY #10 vial 02/23/18 Unknown Rx Allergies Allergy/AdvReac Type Severity Reaction Status Date / Time No Known Allergies Allergy Unverified 03/19/16 21:13 ED Review of Systems ROS: Stated complaint: SEIZURE Other details as noted in HPI Comment: Unobtainable due to pts medical conditions ED Past Medical Hx - Past Medical History Previous Medical History?: Yes Hx Hypertension: Yes (EF 55-60%) Hx Heart Attack/AMI: Yes Hx Diabetes: Yes Hx Deep Vein Thrombosis: No Hx Renal Disease: No (stones, renal stents 2/2 hydronephrosis) Hx Sickle Cell Disease: No Hx Seizures: Yes Hx Kidney Stones: Yes Hx Psychiatric Treatment: Yes (depression) 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 fib - Surgical History Past Surgical History?: No Hx Pacemaker: No Hx Internal Defibrillator: No - Social History Smoking Status: Unknown if ever smoked - Medications Home Medications: Home Medications Medication Instructions Recorded Confirmed Last Taken Type Aspirin [Aspirin TAB] 325 mg PO QDAY 03/19/16 03/07/18 1 Day Ago History ~03/06/18 Docusate Sodium [Move It Along] 100 mg PO DAILY 03/19/16 03/07/18 04/28/17 History Donepezil [Aricept] 10 mg PO QHS 03/19/16 03/07/18 04/28/17 History Multivitamin Tab W-MINERAL 1 each PO QD 03/19/16 03/07/18 04/28/17 History [Multiple Vitamin/Mineral (Theragran M)] Potassium Chloride [K-Tab ER] 20 meq PO DAILY 03/19/16 03/07/18 04/28/17 History Nitro Dur 0.2 mg TRANSDERMA QAM 04/03/16 03/07/18 04/28/17 History Sertraline [Zoloft] 100 mg PO QDAY 12/31/16 03/07/18 04/28/17 History Tamsulosin [Flomax] 0.4 mg PO QHS 12/31/16 03/07/18 04/28/17 History Divalproex ER [Depakote ER] 500 mg PO QAM 02/12/17 03/07/18 04/28/17 History Acetaminophen [Acetaminophen TAB] 650 mg PO Q4H PRN tablet 02/22/18 03/07/18 Unknown Rx Amiodarone [Cordarone 200 MG TAB] 200 mg PO QDAY tablet 02/22/18 03/07/18 Unknown Rx Divalproex ER [Depakote ER] 500 mg PO QHS tablet 02/22/18 03/07/18 Unknown Rx Metoprolol [Lopressor TAB] 75 mg PO BID tablet 02/22/18 03/07/18 Unknown Rx Ertapenem (Nf) [INVanz] 1 gm IV QDAY #10 vial 02/23/18 03/07/18 Unknown Rx ED Physical Exam - General Limitations: Altered Mental Status - Other Other exam information: General: Limited by sedation Head exam: Atraumatic, normocephalic Eyes exam: right cornea opacified, irregular shaped left pupil, opens eyes spontaneously ENT: Moist mucous membrane, Neck exam: Normal inspection, full range of motion, no meningismus nontender Respiratory exam: Clear to auscultation bilateral, no wheezes, rales, crackles Cardiovascular: Normal rate and rhythm, normal heart sounds Abdomen: Soft, nondistended, and nontender, with normal bowel sounds, no rebound, or guarding, no peg gu: indwelling shin Extremity: Muscle atrophy to legs Back: Normal Inspection, full range of motion, no tenderness Neurologic: sedated, opens eyes spontaneously, not followed ED Course Vital Signs 03/07/18 03/07/18 03/07/18 00:57 01:00 01:06 Temperature 98.1 F Pulse Rate 98 H 99 H 99 H Respiratory 12 20 26 H Rate Blood Pressure 123/75 123/75 Blood Pressure 123/75 [Left] O2 Sat by Pulse 99 100 99 Oximetry 03/07/18 03/07/18 03/07/18 01:15 01:30 01:45 Temperature Pulse Rate 92 H 88 86 Respiratory 31 H 18 21 Rate Blood Pressure 102/62 102/62 129/75 Blood Pressure [Left] O2 Sat by Pulse 99 98 100 Oximetry 03/07/18 03/07/18 03/07/18 02:00 02:15 02:30 Temperature Pulse Rate 81 74 71 Respiratory 19 14 16 Rate Blood Pressure 133/76 140/77 144/75 Blood Pressure [Left] O2 Sat by Pulse 97 99 100 Oximetry 03/07/18 03/07/18 03/07/18 02:45 03:00 03:15 Temperature Pulse Rate 68 68 76 Respiratory 14 17 9 L Rate Blood Pressure 142/74 142/76 153/81 Blood Pressure [Left] O2 Sat by Pulse 100 100 98 Oximetry 03/07/18 03/07/18 03:30 03:45 Temperature Pulse Rate 69 71 Respiratory 17 14 Rate Blood Pressure 149/79 137/87 Blood Pressure [Left] O2 Sat by Pulse 100 100 Oximetry - Reevaluation(s) Reevaluation #1: 03/07/18 05:01 pt is more alert in ed. ED Medical Decision Making - Lab Data Result diagrams: 03/07/18 01:32 03/07/18 01:32 Lab Results 03/07/18 03/07/18 03/07/18 Range/Units 01:32 01:32 01:32 WBC 10.9 (4.5-11.0) K/mm3 RBC 3.87 (3.65-5.03) M/mm3 Hgb 12.0 (11.8-15.2) gm/dl Hct 35.5 (35.5-45.6) % MCV 92 (84-94) fl MCH 31 (28-32) pg MCHC 34 (32-34) % RDW 15.7 H (13.2-15.2) % Plt Count 272 (140-440) K/mm3 Sodium 142 (137-145) mmol/L Potassium 4.5 (3.6-5.0) mmol/L Chloride 104.9 (98-107) mmol/L Carbon Dioxide 23 (22-30) mmol/L Anion Gap 19 mmol/L BUN 14 (9-20) mg/dL Creatinine 0.8 (0.8-1.5) mg/dL Estimated GFR > 60 ml/min BUN/Creatinine Ratio 18 % Glucose 221 H (75-100) mg/dL Calcium 8.6 (8.4-10.2) mg/dL Magnesium (1.7-2.3) mg/dL Valproic Acid < 2.8 L (50-100) ug/mL 03/07/18 Range/Units 01:32 WBC (4.5-11.0) K/mm3 RBC (3.65-5.03) M/mm3 Hgb (11.8-15.2) gm/dl Hct (35.5-45.6) % MCV (84-94) fl MCH (28-32) pg MCHC (32-34) % RDW (13.2-15.2) % Plt Count (140-440) K/mm3 Sodium (137-145) mmol/L Potassium (3.6-5.0) mmol/L Chloride (98-107) mmol/L Carbon Dioxide (22-30) mmol/L Anion Gap mmol/L BUN (9-20) mg/dL Creatinine (0.8-1.5) mg/dL Estimated GFR ml/min BUN/Creatinine Ratio % Glucose (75-100) mg/dL Calcium (8.4-10.2) mg/dL Magnesium 1.70 (1.7-2.3) mg/dL Valproic Acid (50-100) ug/mL - Medical Decision Making Pt will be sent back to [place] Received IV Depakote for subtherapeutic level At baseline mental status - Differential Diagnosis breakthrough seizure, subtherapeutic sz meds Critical care attestation.: If time is entered above; I have spent that time in minutes in the direct care of this critically ill patient, excluding procedure time. ED Disposition Clinical Impression: Seizure, Seizure secondary to subtherapeutic anticonvulsant medication Disposition: DC-01 TO HOME OR SELFCARE Is pt being admited?: No Does the pt Need Aspirin: No Condition: Stable Instructions: Epilepsy (ED) Referrals: MORIS PERRIN MD [Staff Physician] - 3-5 Days (neurolgy ) Time of Disposition: 05:31
[2018-03-07 05:51] VITALS: BP 138/75
== END 2018-03-07 06:55 | disposition home or self-care (01) ==
LOC: ED 00:51
DX: R56.9 Unspecified convulsions (principal); I10 Essential (primary) hypertension; E11.9 Type 2 diabetes mellitus without complications; I48.0 Paroxysmal atrial fibrillation; F01.51 Vascular dementia, unspecified severity, with behavioral disturbance; F32.9 Major depressive disorder, single episode, unspecified; Z86.73 Personal history of transient ischemic attack (TIA), and cerebral infarction without residual deficits
CPT/HCPCS: 36415; 51702; 80048; 80164; 83735; 85027; 93005; 93010; 96365

== ENCOUNTER 2019-12-31 07:23 | Emergency (ER) | payer MEDICARE ==
--- NOTE | 2019-12-31 08:12 | Emergency Department Report ---
ED Male HPI - General Stated complaint: GENITALS WOUNDS Time Seen by Provider: 12/31/19 08:07 - History of Present Illness Initial comments: 69-year-old -Maced[place] male comes from [facility] for leaking catheter. Patient reports that his catheter has been leaking for about 2 months. Patient denies any pain shortness of breathing nausea vomiting abdominal pain chest pain. Patient states he is just here to get his catheter changed. Patient has a past medical history of paraplegia CVA dementia. Onset/Timin -: month(s) Severity scale (0 -10): 0 denies other symptoms - Related Data Home Medications Medication Instructions Recorded Confirmed Last Taken Aspirin 325 mg PO QDAY 03/19/16 03/07/18 1 Day Ago ~03/06/18 Docusate Sodium [Move It Along] 100 mg PO DAILY 03/19/16 03/07/18 04/28/17 Multivitamin Tab W-MINERAL 1 each PO QD 03/19/16 03/07/18 04/28/17 [Multiple Vitamin/Mineral (Theragran M)] Potassium Chloride [K-Tab ER] 20 meq PO DAILY 03/19/16 03/07/18 04/28/17 donepeziL [Aricept] 10 mg PO QHS 03/19/16 03/07/18 04/28/17 Nitro Dur 0.2 mg TRANSDERMA QAM 04/03/16 03/07/18 04/28/17 Sertraline [Zoloft] 100 mg PO QDAY 12/31/16 03/07/18 04/28/17 Tamsulosin [Flomax] 0.4 mg PO QHS 12/31/16 03/07/18 04/28/17 Divalproex ER [Depakote ER] 500 mg PO QAM 02/12/17 03/07/18 04/28/17 Previous Rx's Medication Instructions Recorded Last Taken Type Acetaminophen [Acetaminophen TAB] 650 mg PO Q4H PRN tablet 02/22/18 Unknown Rx Amiodarone [Cordarone 200 MG TAB] 200 mg PO QDAY tablet 02/22/18 Unknown Rx Divalproex ER [Depakote ER] 500 mg PO QHS tablet 02/22/18 Unknown Rx Metoprolol [Lopressor TAB] 75 mg PO BID tablet 02/22/18 Unknown Rx Ertapenem [INVanz] 1 gm IV QDAY #10 vial 02/23/18 Unknown Rx cefUROXime [Ceftin] 500 mg PO Q12H 10 Days #40 tablet 12/31/19 Unknown Rx Allergies Allergy/AdvReac Type Severity Reaction Status Date / Time No Known Allergies Allergy Unverified 03/19/16 21:13 ED Review of Systems ROS: Stated complaint: GENITALS WOUNDS Other details as noted in HPI Comment: All other systems reviewed and negative ED Past Medical Hx - Past Medical History Hx Hypertension: Yes (EF 55-60%) Hx Heart Attack/AMI: Yes Hx Diabetes: Yes Hx Deep Vein Thrombosis: No Hx Renal Disease: Yes (stones, renal stents 2/2 hydronephrosis) Hx Sickle Cell Disease: No Hx Seizures: Yes Hx Kidney Stones: Yes Hx Psychiatric Treatment: Yes (depression) 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 fib - Surgical History Hx Pacemaker: No Hx Internal Defibrillator: No - Social History Smoking Status: Unknown if ever smoked - Medications Home Medications: Home Medications Medication Instructions Recorded Confirmed Last Taken Type Aspirin 325 mg PO QDAY 03/19/16 03/07/18 1 Day Ago History ~03/06/18 Docusate Sodium [Move It Along] 100 mg PO DAILY 03/19/16 03/07/18 04/28/17 History Multivitamin Tab W-MINERAL 1 each PO QD 03/19/16 03/07/18 04/28/17 History [Multiple Vitamin/Mineral (Theragran M)] Potassium Chloride [K-Tab ER] 20 meq PO DAILY 03/19/16 03/07/18 04/28/17 History donepeziL [Aricept] 10 mg PO QHS 03/19/16 03/07/18 04/28/17 History Nitro Dur 0.2 mg TRANSDERMA QAM 04/03/16 03/07/18 04/28/17 History Sertraline [Zoloft] 100 mg PO QDAY 12/31/16 03/07/18 04/28/17 History Tamsulosin [Flomax] 0.4 mg PO QHS 12/31/16 03/07/18 04/28/17 History Divalproex ER [Depakote ER] 500 mg PO QAM 02/12/17 03/07/18 04/28/17 History Acetaminophen [Acetaminophen TAB] 650 mg PO Q4H PRN tablet 02/22/18 03/07/18 Unknown Rx Amiodarone [Cordarone 200 MG TAB] 200 mg PO QDAY tablet 02/22/18 03/07/18 Unknown Rx Divalproex ER [Depakote ER] 500 mg PO QHS tablet 02/22/18 03/07/18 Unknown Rx Metoprolol [Lopressor TAB] 75 mg PO BID tablet 02/22/18 03/07/18 Unknown Rx Ertapenem [INVanz] 1 gm IV QDAY #10 vial 02/23/18 03/07/18 Unknown Rx cefUROXime [Ceftin] 500 mg PO Q12H 10 Days #40 tablet 12/31/19 Unknown Rx ED Physical Exam - General General appearance: alert, in no apparent distress - Head Head exam: Present: atraumatic, normocephalic - Eye Eye exam: Present: other (Right eye cornea is opaque ) - ENT ENT exam: Present: mucous membranes moist - Neck Neck exam: Present: normal inspection, full ROM - Respiratory Respiratory exam: Present: normal lung sounds bilaterally. Absent: respiratory distress - Cardiovascular Cardiovascular Exam: Present: regular rate, normal rhythm. Absent: systolic murmur, diastolic murmur, rubs, gallop - exam: Present: scrotal swelling, circumcision, other (Patient has a dime size fissure on the lateral left penis has granulated tissue appears to be chronic). Absent: testicular tenderness, urethral discharge - Extremities Exam Extremities exam: Present: other (Right lower extremity contraction at the knee, left pinky contraction) - Neurological Exam Neurological exam: Present: alert - Psychiatric Psychiatric exam: Present: normal affect, normal mood - Skin Skin exam: Present: other (Gluteal has thick dry scaly skin wound dressing to the sacral area) ED Course Vital Signs 12/31/19 12/31/19 12/31/19 07:56 08:00 08:07 Temperature 98.4 F Pulse Rate 56 L Respiratory 18 Rate Blood Pressure 146/76 146/76 152/76 Blood Pressure [147/76] O2 Sat by Pulse 99 100 Oximetry 12/31/19 12/31/19 12/31/19 08:13 08:16 08:30 Temperature 98.4 F Pulse Rate 55 L 56 L 61 Respiratory 18 13 16 Rate Blood Pressure 152/78 131/77 Blood Pressure 147/76 [147/76] O2 Sat by Pulse 97 97 97 Oximetry 12/31/19 12/31/19 12/31/19 08:45 09:00 09:16 Temperature Pulse Rate 60 54 L 58 L Respiratory 16 18 13 Rate Blood Pressure 147/87 147/87 172/82 Blood Pressure [147/76] O2 Sat by Pulse 98 97 97 Oximetry 12/31/19 12/31/19 12/31/19 09:30 09:45 10:00 Temperature Pulse Rate 60 64 60 Respiratory 14 14 18 Rate Blood Pressure 177/73 164/89 164/85 Blood Pressure [147/76] O2 Sat by Pulse 98 97 99 Oximetry 12/31/19 12/31/19 12/31/19 10:16 10:31 11:00 Temperature Pulse Rate 63 62 Respiratory 17 17 18 Rate Blood Pressure 171/78 158/83 Blood Pressure [147/76] O2 Sat by Pulse 99 99 Oximetry ED Medical Decision Making - Lab Data Result diagrams: 12/31/19 Unknown 12/31/19 Unknown Laboratory Tests 12/31/19 12/31/19 12/31/19 09:45 Unknown Unknown WBC 6.6 RBC 4.09 Hgb 12.5 Hct 37.9 MCV 93 MCH 31 MCHC 33 RDW 17.4 H Plt Count 202 Lymph % (Auto) 16.0 [place] % (Auto) 11.5 H Eos % (Auto) 1.1 Baso % (Auto) 0.3 Lymph # 1.1 L [place] # 0.8 Eos # 0.1 Baso # 0.0 Seg Neutrophils % 71.1 H Seg Neutrophils # 4.7 Sodium 138 Potassium 5.1 H Chloride 102.9 Carbon Dioxide 21 L Anion Gap 19 BUN 14 Creatinine 0.7 L Estimated GFR > 60 BUN/Creatinine Ratio 20 Glucose 73 L Calcium 8.7 Total Bilirubin 0.30 AST 27 ALT 6 L Alkaline Phosphatase 58 Total Protein 8.1 Albumin 2.5 L Albumin/Globulin Ratio 0.4 Urine Color Yellow Urine Turbidity Cloudy Urine pH 7.0 Ur Specific [place] 1.013 Urine Protein 100 mg/dl Urine Glucose (UA) Neg Urine Ketones Neg Urine Blood Mod Urine Nitrite Pos Urine Bilirubin Neg Urine Urobilinogen 2.0 Ur Leukocyte Esterase Lg Urine WBC (Auto) > 182.0 H Urine RBC (Auto) 15.0 U Epithel Cells (Auto) 1.0 Urine Bacteria (Auto) 2+ Urine WBC Clumps 2+ Urine Mucus Few - Medical Decision Making 69-year-old -[place] male comes from [facility] for leaking catheter. Patient reports that his catheter has been leaking for about 2 months. Patient denies any pain shortness of breathing nausea vomiting abdominal pain chest pain. Patient states he is just here to get his catheter changed. Patient has a past medical history of paraplegia CVA dementia. Critical care attestation.: If time is entered above; I have spent that time in minutes in the direct care of this critically ill patient, excluding procedure time. ED Disposition Clinical Impression: Acute lower UTI (urinary tract infection), Fissure in skin Disposition: [id number] TO HOME OR SELFCARE Is pt being admited?: No Does the pt Need Aspirin: No Condition: Stable Instructions: Urinary Tract Infection in Men (ED) Additional Instructions: Complete antibiotics as prescribed. It is very important for you to follow-up with [facility]. Prescriptions: cefUROXime [Ceftin] 500 mg PO Q12H 10 Days #40 tablet Referrals: MARYCRUZ PALOMARES MD [Primary Care Provider] - 3-5 Days [facility] [Provider Group] - 3-5 Days
[2019-12-31 10:08] LABS: Bacteria,Urine 2+ /HPF (Negative); Bilirubin,Urine NEG (Negative); Blood,Urine MOD (Negative); Color,Urine Yellow (Yellow); Mucus,Urine FEW /HPF
[2019-12-31 10:14] LABS: WBC,Urine > 182.0 /HPF (0.0-6.0)
[2019-12-31 10:51] LABS: Basophils % (Auto) 0.3 % (0.0-1.8); Eosinophils # (Auto) 0.1 K/mm3 (0.0-0.4); Eosinophils % (Auto) 1.1 % (0.0-4.3); Hematocrit 37.9 % (35.5-45.6); Hemoglobin 12.5 gm/dl (11.8-15.2); Lymphocytes # (Auto) 1.1 K/mm3 (1.2-5.4); Mean Corpuscular HGB Conc 33 % (32-34); Mean Corpuscular Volume 93 fl (84-94); Monocytes # (Auto) 0.8 K/mm3 (0.0-0.8); Monocytes % (Auto) 11.5 % (0.0-7.3); Platelet Count 202 K/mm3 (140-440); Red Blood Count 4.09 M/mm3 (3.65-5.03); Red Cell Distribution Width 17.4 % (13.2-15.2)
[2019-12-31 10:53] LABS: Albumin 2.5 g/dL (3.9-5); BUN/Creatinine Ratio 20; Blood Urea Nitrogen 14 mg/dL (9-20); Calcium 8.7 mg/dL (8.4-10.2); Hemolysis Index 122
[2019-12-31 11:11] LABS: Alanine Aminotransferase 6 units/L (7-56)
[2019-12-31 12:39] VITALS: BP 154/60
== END 2019-12-31 12:47 | disposition home or self-care (01) ==
LOC: ED 07:23
DX: T83.511A Infection and inflammatory reaction due to indwelling urethral catheter, initial encounter (principal); N39.0 Urinary tract infection, site not specified; R23.4 Changes in skin texture; I11.0 Hypertensive heart disease with heart failure; I25.2 Old myocardial infarction; E11.9 Type 2 diabetes mellitus without complications; R56.9 Unspecified convulsions; G80.8 Other cerebral palsy; F32.9 Major depressive disorder, single episode, unspecified; F03.90 Unspecified dementia, unspecified severity, without behavioral disturbance, psychotic disturbance, mood disturbance, and anxiety; Z98.890 Other specified postprocedural states; Z87.442 Personal history of urinary calculi; Z79.899 Other long term (current) drug therapy; Y84.6 Urinary catheterization as the cause of abnormal reaction of the patient, or of later complication, without mention of misadventure at the time of the procedure; Y92.89 Other specified places as the place of occurrence of the external cause
CPT/HCPCS: 36415; 51702; 80053; 81001; 85025; 87086